=== PATIENT | male | born 1940 | race Caucasian/White ===

== ENCOUNTER 2021-01-31 21:36 | Inpatient (IN) | payer MEDICARE, MEDICAID, SELFPAY ==
--- NOTE | ~2021-01-31 | CT_ITS ---
EXAMINATION: CT brain wo con DATE: 01/31/2021 23:33 INDICATION: Confusion. Weakness fall. TECHNIQUE: Computed tomography (CT) of the head was performed without intravenous contrast. The dose- length product was 605.33 mGy-cm. Automated exposure control and iterative reconstruction technique w ere employed. 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 There are scattered mild periventricular and subcortical white matter changes, most likely related to small vessel ischemic disease (microang iopathy). There is generalized atrophy. No ventriculomegaly or midline shift. Basilar cisterns are pa tent. There is intracranial atherosclerosis. There is a small air-fluid level in the right maxillary sinus. Small left mastoid effusion. No depressed skull fractures. IMPRESSION: 1. No acute intracranial abnormality. 2: Mild right maxillary sinus disease, possibly acute. 3: Chronic right parietal lobe infarction. 4: Chronic age-related findings. Reviewed, dictated and finalized at location A.
[2021-01-31 21:54] VITALS: BP 117/77; PULSE 106; PULSE 109; RESP 21; RESP 25; O2SAT 96; O2SAT 98
[2021-01-31 21:55] VITALS: PULSE 109; RESP 30; O2SAT 97
[2021-01-31 22:00] VITALS: PULSE 106; RESP 32; O2SAT 96
[2021-01-31 22:01] VITALS: BP 108/69; PULSE 106; RESP 31; O2SAT 96
--- NOTE | 2021-01-31 22:13 | ECG_ITS ---
Measurements Intervals [place] Rate: 104 P: 33 AR: 208 QRS: -29 QRSD: 105 T: 32 QT: 342 QTc: 452 Interpretive Statements SINUS TACHYCARDIA ATRIAL AND VENTRICULAR PREMATURE COMPLEXES INCOMPLETE RIGHT BUNDLE BRANCH BLOCK DELAYED PRECORDIAL R/S TRANSITION INFERIOR INFARCT, AGE INDETERMINATE BORDERLINE ST-T WAVE ABNORMALITY- HIGH LATERAL LEADS BASELINE ARTIFACT- I, II, III, AVR, AVL, AVF, V1-V2 ABNORMAL ECG Electronically Signed On 02-01-2021 6:29:54 CDT by Kosta Caldera D.O.
[2021-01-31 22:16] VITALS: BP 123/66; PULSE 105; RESP 25; TEMP 36.1; O2SAT 96
[2021-01-31 23:11] LABS: Basophils Percent Auto 0.2 % (0.2-1.2); Eosinophils Percent Auto 0.1 % (0-4.4); Hematocrit 23.8 % (42.0-52.0); Immature Granulocyte Absolute 0.04 K/mm3 (0.00-0.031); Immature Granulocyte Percent A 0.4 % (0-0.5); Lymphocytes Absolute Auto 3.91 K/mm3 (0.9-3.2); Lymphocytes Percent Auto 36.7 % (18.3-44.2); Mean Corpuscular HGB Conc 25.6 g/dl (32-36); Mean Corpuscular Hemoglobin 16.8 pg (26-34); Mean Corpuscular Volume 65.6 fl (80-100); Mean Platelet Volume 8.7 fl (7.4-10.4); Monocytes Absolute Auto 0.4 K/mm3 (0.1-0.6); Monocytes Percent Auto 4.1 % (2.6-8.5); Neutrophils Absolute Auto 6.2 K/mm3 (1.3-6.7); Neutrophils Percent Auto 58.5 % (45.5-73.1); Platelet Count Result 314 k/mm3 (150-375); Red Blood Count 3.63 M/mm3 (4.6-6.20); Red Cell Distribution Width 20.5 % (11.5-14.5); White Blood Count 10.7 K/mm3 (4.5-10.0)
[2021-01-31 23:19] LABS: Alanine Aminotransferase 11 U/L (4-50); Albumin Level 3.8 g/dL (3.5-5.1); Alkaline Phosphatase 103 U/L (38-126); Anion Gap 10 mmol/L (8-16); Aspartate Amino Transferase 21 U/L (17-59); Bilirubin,Total 0.4 mg/dL (0.2-1.3); Blood Urea Nitrogen 21 mg/dL (9-20); Calcium 9.2 mg/dL (8.4-10.2); Carbon Dioxide 23 mmol/L (22-30); Chloride 102 mmol/L (98-107); Estimated CRCL calculation 59 ml/min; Estimated Glomerular Filt Rate > 60; Glucose 139 mg/dL (65-110); Potassium 4.1 mmol/L (3.4-5.0); Sodium 135 mmol/L (137-145)
[2021-01-31 23:20] LABS: Ethanol < 10 mg/dL (<10)
[2021-01-31 23:32] VITALS: BP 108/79; PULSE 98; RESP 30; O2SAT 97
[2021-01-31 23:44] LABS: Anisocytosis 1+ (NORMAL); Hemoglobin 6.1 g/dL (14.0-18.0); Hypochromasia 2+ (NORMAL); Platelet Estimate Adequate (Adequate)
[2021-01-31 23:53] LABS: NT Pro B Type Natriuretic Pept 1920 pg/mL (5-100); Troponin I 0.894 ng/mL (0.000-0.034)
[2021-02-01] VITALS (26 sets, daily range): BP systolic 104–149; BP diastolic 50–82; PULSE 65–102; RESP 14–26; TEMP 35.9–37; O2SAT 93–100; BMI 20.2
--- NOTE | 2021-02-01 | ECHO_ITS ---
Patient Info Name: Manpreet Crawley Age: 80 years : 1940 Gender: Male Ht: 68 in Wt: 133 lbs BSA: 1.70 m2 HR: 78 bpm BP: 131 / 66 mmHg Heart Rhythm: Sinus Rhythm Technical Quality: Good Exam Date: 02/01/2021 1:39 PM Exam Location: [facility] Patient Status: Inpatient Admit Date: 02/01/2021 Staff Ordering Physician: Mat Ruiz MD Knot Borer: Valerie Jacome RDCS Attending Provider: Mat Ruiz MD Exam Type: CA echo doppler color flow Study Info Indications - ELEVATED TROPONIN Complete two-dimensional, color flow and Doppler transthoracic echocardiogram is performed. Summary 1. Complete two-dimensional, color flow and Doppler transthoracic echocardiogram is performed. 2. Mild left ventricular enlargement with sigmoid hypertrophy. Mild left ventricular dysfunction with hyper basal inferior wall and basal and mid septal segments. Ejection fraction calculated to be 45%. Normal diastolic function. 3. Global longitudinal strain is moderately elevated at -13 %, consistent with a degree of systolic dysfunction. 4. Left atrial chamber dimension is moderately enlarged. 5. There is mild mitral valve regurgitation. 6. Normal sinus rhythm. Left Ventricle Left ventricular chamber dimension is mildly enlarged. Left ventricular systolic function is normal, estimated at 45-50%. There is no increased left ventricular wall thickness. Left ventricular septal wall motion is normal. The left ventricular diastolic function is normal. Global longitudinal strain is moderately elevated at -13 %, consistent with a degree of systolic dysfunction. Right Ventricle Right ventricular chamber dimension is normal. Right ventricular systolic function is normal. Left Atria Left atrial chamber dimension is moderately enlarged. Right Atria Right atrial chamber dimension is normal. Aortic Valve The aortic valve is trileaflet. There is no aortic valve sclerosis. There is no aortic valve stenosis. There is no aortic valve regurgitation. Pulmonic Valve The pulmonic valve is normal. There is no pulmonic valve stenosis. There is no pulmonic regurgitation. Mitral Valve The mitral valve has normal leaflets. There is no mitral valve stenosis. There is mild mitral valve regurgitation. Tricuspid Valve The tricuspid valve leaflets are normal. There is no significant tricuspid valve stenosis. There is trace tricuspid valve regurgitation. No pulmonary hypertension, estimated pulmonary arterial systolic pressure is 19 mmHg. Pericardium/Pleural The pericardium appears normal. There is no pericardial effusion. Inferior Vena Cava Not well visualized inferior vena cava with >50% collapse upon inspiration consistent with Empty right atrial pressure, 10 mmHg. Aorta The aortic root size at the sinus of Valsalva is normal. The prox ascending aorta size is not well visualized. Left Ventricular Outflow Tract Name Value Normal LVOT 2D LVOT Diameter 2.2 cm LVOT Doppler LVOT Peak Gradient 2 mmHg LVOT Mean Gradient 1 mmHg LVOT VTI
--- NOTE | 2021-02-01 00:27 | ED.FALL ---
HPI - Fall General Chief Complaint: Fall Stated Complaint: ams Time Seen by Provider: 01/31/21 22:09 Source: patient and EMS Mode of arrival: EMS Limitations: physical limitation History of Present Illness HPI Narrative: 80-year-old with a history of hypertension s/p CABG about 2 years ago was brought in from home with complaints of fall. Patient was found on the floor by EMS, he initially called [facility] and then EMS responded. Patient initially was found to be very confused ANO x2, covered in feces. Patient states that he fell off his recliner and was unable to get up and walk. He denies hitting his head or having any chest pain prior to the event. Patient states that he lives by himself and has not made who comes every other day. He also mentions that he eats very minimal as he has no appetite. He has no family members. complaint: fall Onset (ago): day(s) (1) Fall from: chair Fall witnessed: no Place fall occurred: home Loss of consciousness: none Related Data Allergies Allergy/AdvReac Type Severity Reaction Status Date / Time No Known Allergies Allergy Verified 01/31/21 22:01 Review of Systems Review of Systems: All systems reviewed & are unremarkable except as noted in HPI and below Constitutional: Constitutional: Reports no additional constitutional complaints Eyes: Eyes: Reports no additional eye complaints ENT: Reports system reviewed and no additional complaints, except as documented Cardiovascular: Cardiovascular: Reports no additional cardiovascular complaints Musculoskeletal: Musculoskeletal: Reports no additional musculoskeletal complaints Neurologic: Reports system reviewed and no additional complaints, except as documented Endocrine: Endocrine: Reports no additional endocrine complaints Hematologic/Lymphatic: Hematologic/Lymphatic: Reports no additional hematologic/lymphatic complaints Allergic/Immunologic: Allergic/Immunologic: Reports no additional allergic/immunologic complaints Exam Narrative: GENERAL: ill -appearing, thin, very hard of hearing and in no acute distress. HEAD: Normocephalic, atraumatic. EYES: PERRLA and EOMI. ENT: Nares clear, no rhinorrhea . Mucous membranes moist. NECK: Supple. CHEST: Clear to auscultation. No respiratory distress. Thoracotomy scar noted HEART: Regular rate and rhythm. No murmur heard. Normal peripheral pulses. ABDOMEN: Soft, nontender, nondistended, normal active bowel sounds. Guaiac negative EXTREMITIES: Normal range of motion. No edema. SKIN: Warm, dry, no rash. Pale NEURO: No focal deficits. Alert and oriented x3. PSYCH: Normal mood and affect. Course Course Emergency Course: Inform patient about his lab work. He agreed for admission and blood transfusion. Patient has no family members to notify he does not recall what medication he takes. He states that he has not seen his doctor for quite some time. I discussed with Dr. Milan agreed. The patient will consult dialysis social worker in the morning. Vital Signs Vital signs: Vital Signs Pulse Rate 106 H 01/31/21 21:54 Respiratory Rate 25 H 01/31/21 21:54 Blood Pressure 117/77 01/31/21 21:54 Pulse Oximetry 96 01/31/21 21:54 Pulse Rate 106 H 01/31/21 22:01 Respiratory Rate 31 H 01/31/21 22:01 Blood Pressure 108/69 01/31/21 22:01 Pulse Oximetry 96 01/31/21 22:01 - Fall Lab Data Result diagrams: 01/31/21 22:55 01/31/21 22:54 Labs: Lab Results 01/31/21 01/31/21 01/31/21 Range/Units 22:54 22:54 22:55 WBC 10.7 H (4.5-10.0) K/mm3 RBC 3.63 L (4.6-6.20) M/mm3 Hgb 6.1 L* (14.0-18.0) g/dL Hct 23.8 L (42.0-52.0) % MCV 65.6 L (80-100) fl MCH 16.8 L (26-34) pg MCHC 25.6 L (32-36) g/dl RDW 20.5 H (11.5-14.5) % Plt Count 314 (150-375) k/mm3 MPV 8.7 (7.4-10.4) fl Immature Gran % (Auto) 0.4 (0-0.5) % Neut % (Auto) 58.5 (45.5-73.1) % Lymph % (Auto) 36.7 (18.3-44.2)
[2021-02-01 01:25] LABS: Immature Reticulocyte Fraction 23.8 % (3.0-15.9); Reticulocyte Hemoglobin Conten 17.8 pg (28.2-35.7); Reticulocyte Percent 2.06 % (0.7-4.3); Reticulocytes Absolute 0.08 B/L (32.2-175.7)
[2021-02-01 01:31] LABS: Lactate Dehydrogenase 359 U/L (313-618)
--- NOTE | 2021-02-01 02:40 | PC.NURSE ---
Patient noted to be incontinent of stool. Patient cleaned and clean linen provided.
--- NOTE | 2021-02-01 02:50 | ADMGEN ---
This patient, Manpreet Crawley, was admitted to Medical Room 346-01. Patient/family oriented to hospital policies and general routines including ID bracelet, bed and alarms, visiting hours, pain management, procedures, bathroom and other care routines, personal items, smoking policy, room service/diet, and visiting hours. Information on how to activate the Rapid Response Team has been discussed. Patient/Family are encouraged to report perceived risks to care and to ask questions if they do not understand what they are told or what they should do.
--- NOTE | 2021-02-01 02:50 | PC.NURSE ---
Patient was noted to be incontinent of stool when moved to bed in room. Assisted floor nurse in cleaning patient and providing clean linen.
[2021-02-01 03:25] LABS: Iron 14 ug/dL (49-181)
[2021-02-01 03:29] LABS: Folic Acid 2.5 ng/mL (2.76->20); Vitamin B12 > 1000.0 pg/mL (239-931)
[2021-02-01 03:34] LABS: Percent Iron Saturation 3 % (20-50)
[2021-02-01] MEDS: SODIUM CHLORIDE 0.9% IV 250 ML 30 ML IV CONT ×2 (03:41→05:38)
[2021-02-01 04:02] LABS: Ferritin 8.04 ng/mL (11.1-264)
--- NOTE | 2021-02-01 05:21 | PM.IMHP ---
H&P: HPI History of Present Illness Date/Time: 02/01/21 05:21 Chief Complaint: fall Narrative: 80-year-old with a history of hypertension s/p CABG about 2 years ago was brought in from home with complaints of fall. Patient states she was walking with a walker however got imbalanced and fell on the ground and was unable to get up. He denies hitting his head or any other bony injury. He lives by himself. He called EMS who arrived in about 5-10 minutes and got him up. He was then brought to the ER for evaluation. In the ER he was noted to be severely anemic with hemoglobin down to 6.1 he denies any blood loss with normal bowel movement. No history of anemia in the past he does take aspirin 81 mg regularly for his history of coronary artery disease. He denies taking any other [id number] pain medications however patient is hard of hearing and also poor historian. He also reports that he has not been eating and drinking well and has been losing some weight. He is not able to quantify how much weight he lost. He is getting admitted for further evaluation and management.. Review of Systems Review of Systems: - CONSTITUTIONAL: Denies weight loss, fever and chills. - HEENT: Denies changes in vision and hearing - RESPIRATORY: Denies SOB and cough. - CV: Denies palpitations and CP. - GI: Denies abdominal pain, nausea, vomiting and diarrhea. - : Denies dysuria and urinary frequency. - MSK: Denies myalgia and joint pain. - SKIN: Denies rash and pruritus. - NEUROLOGICAL: Denies headache and syncope. - PSYCHIATRIC: Denies recent changes in mood. Denies anxiety and depression. All systems reviewed & are unremarkable except as noted in HPI and below Constitutional: Constitutional: Reports fatigue and Reports weakness Neurologic: Reports weakness Endocrine: Endocrine: Reports fatigue [facility] Family History Family History (Updated 02/01/21 @ 03:17 by Brooklynn Tucker RN) Sibling Congestive heart failure Sibling Congestive heart failure Social History Social History Smoking packs per day: 0.5 Smoking cigarettes per day: 10.0 Years smoked: 5 Smoking pack-years: 2.50 Smoking status: Former smoker Tobacco type: cigarettes Alcohol intake: never Substance use: never Substance use type: does not use Spiritual care concerns: No Meds Home Medications and Allergies Home Medications Medication Instructions Recorded Confirmed Type ipratropium-albuterol [Combivent 2 puff INHALATION QID 02/01/21 02/01/21 History Respimat] metoprolol succinate 50 mg PO DAILY 02/01/21 02/01/21 History tamsulosin 0.4 mg PO DAILY 02/01/21 02/01/21 History Allergies Allergy/AdvReac Type Severity Reaction Status Date / Time No Known Allergies Allergy Verified 02/01/21 03:04 Vital Signs Vital Signs - 24 hr 01/31/21 21:54 01/31/21 21:55 01/31/21 22:00 Temperature Pulse Rate 109 H 109 H 106 H Respiratory Rate 21 H 30 H 32 H Blood Pressure 117/77 Pulse Oximetry 98 97 96 01/31/21 22:01 01/31/21 22:16 01/31/21 23:32 Temperature 96.9 F L Pulse Rate 106 H 105 H 98 Respiratory Rate 31 H 25 H 30 H Blood Pressure 108/69 123/66 108/79 Pulse Oximetry 96 96 97 02/01/21 00:15 02/01/21 01:15 02/01/21 02:12 Temperature 97.1 F L 97.1 F L Pulse Rate 102 H 98 88 Respiratory Rate 26 H 24 H 24 H Blood Pressure 136/66 115/76 113/68 Pulse Oximetry 97 94 97 02/01/21 03:03 02/01/21 03:38 02/01/21 03:54 Temperature 98.2 F 98.4 F 98.5 F Pulse Rate 91 90 90 Respiratory Rate 22 H 24 H 24 H Blood Pressure 137/68 130/63 131/61 Pulse Oximetry 100 98 97 02/01/21 04:00 02/01/21 04:54 Temperature 98.2 F Pulse Rate 91 87 Respiratory Rate 20 Blood Pressure 112/50 L Pulse Oximetry 98 Exam Narrative: GENERAL: ill -appearing, thin, very hard of hearing and in no acute distress. HEAD: Normocephalic, atraumatic. EYES: PERR
[2021-02-01 08:15] LABS: Add Urine Microscopic? YES; Appearance Urine Clear (Clear); Bacteria Urine 3+ /hpf; Bilirubin Urine Negative (Negative); Blood Urine Negative (Negative); Color Urine Yellow (Yellow); Glucose Urine UA Negative (Negative); Ketones Urine Negative (Negative); Leukocyte Esterase Ur 1+ LEU/UL (Negative); Mucus Urine Rare /lpf; Nitrate Urine Positive (Negative); Protein Urine 1+ mg/dL (Negative); RBC Urine 0-2 /hpf (0-2); Specific Grav Ur 1.018 (1.001-1.035); WBC Urine 16-20 /hpf
[2021-02-01] MEDS: FOLIC ACID 1 MG TABLET PO (08:27)
[2021-02-01] MEDS: TAMSULOSIN HCL 0.4 MG CAPSULE PO (08:27)
[2021-02-01] MEDS: METOPROLOL SUCCINATE EXT REL 50 MG TABCR PO (08:27)
[2021-02-01] MEDS: PANTOPRAZOLE SODIUM IV 40 MG VIAL IV PUSH ×2 (08:28→20:58)
[2021-02-01] MEDS: FAMOTIDINE 20 MG/2 ML VIAL IV PUSH ×2 (08:28→20:58)
--- NOTE | 2021-02-01 09:46 | PM.CNCAR ---
Assessment and Plan Assessment and plan (1) Elevated troponin: Code(s): R77.8 - Other specified abnormalities of plasma proteins <THAO Mccollum - Last Filed: 02/01/21 17:26> Status: Acute <THAO Mccollum - Last Filed: 02/01/21 17:26> Assessment and Plan: Patient presented with a chief complaint of fall. Troponin levels were drawn in the emergency department for unclear reasons. The patient denied chest pain at that time and is continuing to deny chest pain now. EKG without any evidence of ischemia. He was found to be profoundly anemic with a hemoglobin of 6.1. His elevated troponins likely represent a type II [place] in the setting of profound anemia. He is being transfused -receiving his 2nd unit of packed red blood cells currently. No indication for ischemic evaluation at this time. Will check echo. <THAO Mccollum - Last Filed: 02/01/21 17:26> (2) Coronary artery disease: Code(s): I25.10 - Atherosclerotic heart disease of [place] coronary artery without angina pectoris <THAO Mccollum - Last Filed: 02/01/21 17:26> Status: Acute <THAO Mccollum - Last Filed: 02/01/21 17:26> Assessment and Plan: He does have history of coronary disease with coronary bypass grafting which by patient report was somewhere from 5-8 years ago. He denies having any anginal symptoms since that time. He apparent aspirin or statin at home. Would not recommend aspirin at this time in the setting of profound anemia with unknown source. <THAO Mccollum - Last Filed: 02/01/21 17:26> (3) Hypertension: Code(s): I10 - Essential (primary) hypertension <THAO Mccollum - Last Filed: 02/01/21 17:26> Status: Acute <THAO Mccollum - Last Filed: 02/01/21 17:26> Assessment and Plan: History of hypertension. On metoprolol at home. Blood pressure is at goal currently. <THAO Mccollum - Last Filed: 02/01/21 17:26> Additional Plan Patient seen and examined, chart reviewed. Pt w/ h/o CAD, with elevated troponins but no chest pain. EKG shows sinus tachycardia, PVCs, left axis deviation, incomplete RBBB but no ischemic changes. Severely anemic. I agree with nurse practitioner Ni Ulrich's assessment and plan; that the patient has had a troponin spill and this does not represent an acute coronary syndrome. Echo pending, resume ASA when OK w/ GI. <Sharri North MD - Last Filed: 02/01/21 20:06> History of Present Illness History of Present Illness Consult date/time: 02/01/21 09:46 <THAO Mccollum - Last Filed: 02/01/21 17:26> Requesting physician: Mario Ordaz APN-C <THAO Mccollum - Last Filed: 02/01/21 17:26> Consult reason: Other ( Elevated troponin) <THAO Mccollum - Last Filed: 02/01/21 17:26> Reason For Visit: Weakness, fall, anemia <THAO Mccollum - Last Filed: 02/01/21 17:26> Narrative: This is a 80-year-old male who I am seeing at the request of the hospitalist for the reason of elevated troponin. This is a patient with a history of hypertension and coronary disease status post CABG who presented to the emergency department after sustaining a fall. The patient tells me that he has been falling frequently over the past several months. He also says that he has had increasing shortness of breath for 2-3 months. He tells me that his coronary artery bypass grafting was somewhere between 5-8 years ago. He says that since that time he has not experienced any chest pain whatsoever. He currently is denying any chest pain. He does again endorse shortness of breath. He denies any edema, paroxysmal nocturnal dyspnea, orthopnea. In the emergency department he was found to be profoundly anemic with a hemoglobin of 6.1. He is currently only receiving 2 units of packed red blood cells. History somewhat difficult to obtain as he is very
--- NOTE | 2021-02-01 10:51 | PCPTNOTE ---
Attempted PT evaluation, however pt's RN stated to hold until this afternoon after labs are redrawn due to pt having low hgb. Will attempt again at a later date/time.
--- NOTE | 2021-02-01 11:28 | WPDGICN ---
Assessment and Plan Assessment and plan (1) Iron deficiency anemia: Code(s): D50.9 - Iron deficiency anemia, unspecified Status: Acute Assessment and Plan: no overt gib but no records of scopes will proceed with egd and colonoscopy to assess if gi blood loss, probably contributing factor of elevated troponin (no chest pain and cardiology on board) (2) Fall: Qualifiers: Encounter type: initial encounter Qualified Code(s): W19.XXXA - Unspecified fall, initial encounter Code(s): W19.XXXA - Unspecified fall, initial encounter Status: Acute Assessment and Plan: symptomatic anemia probably played a role fall precautions he is feeling better after blood transfusion (3) Coronary artery disease: Code(s): I25.10 - Atherosclerotic heart disease of [place] coronary artery without angina pectoris Status: Acute (4) Elevated troponin: Code(s): R77.8 - Other specified abnormalities of plasma proteins Status: Acute Assessment and Plan: by cardiology (5) Hypertension: Code(s): I10 - Essential (primary) hypertension Status: Acute GI Consult Note Consult date/time: 02/01/21 11:28 Reason for consult: PIOTR HPI: Manpreet Crawley is a 80 year old male with history of hypertension, CAD s/p CABG about 2 years on aspirin who is hard of hearing and also a poor historian. He was brought here after had a fall at home, apparently was unsteady using his walker and fell down. He lives by himself and called EMS. ER evaluation showed severely anemic with hemoglobin 6.1 with microcytosis but denies melena or obvious blood in stools. He does not remember having scopes in the past. CT head reviewed, chronic right parietal lobe infarction. Also had elevated troponin and cardiology on board and probably is related to profound anemia. He already received blood transfusion Review of Systems Constitutional: Constitutional: Reports weakness Eyes: Eyes: Denies blurry vision ENT: Comments: hard of hearing using aids Cardiovascular: Cardiovascular: Denies chest pain Respiratory: Respiratory: Denies cough Gastrointestinal: Gastrointestinal: Denies melena and Denies hematochezia Genitourinary: Genitourinary: Denies dysuria Musculoskeletal: Musculoskeletal: Reports no additional musculoskeletal complaints Integumentary/Breasts: Skin/Breast: Denies dry skin Neurologic: Reports system reviewed and no additional complaints, except as documented Psychiatric: Psychiatric: Reports no additional psychiatric complaints [facility] Past Medical History Medical History (Updated 02/01/21 @ 11:34 by Ankit Garcia MD) Iron deficiency anemia Family History Family History Sibling Congestive heart failure Sibling Congestive heart failure Social History Social History Smoking packs per day: 0.5 Smoking cigarettes per day: 10.0 Years smoked: 5 Smoking pack-years: 2.50 Smoking status: Former smoker Tobacco type: cigarettes Alcohol intake: never Substance use: never Substance use type: does not use Spiritual care concerns: No Meds Home Medications and Allergies Home Medications Medication Instructions Recorded Confirmed Type ipratropium-albuterol [Combivent 2 puff INHALATION QID 02/01/21 02/01/21 History Respimat] metoprolol succinate 50 mg PO DAILY 02/01/21 02/01/21 History tamsulosin 0.4 mg PO DAILY 02/01/21 02/01/21 History Allergies Allergy/AdvReac Type Severity Reaction Status Date / Time No Known Allergies Allergy Verified 02/01/21 03:04 Vital Signs Vital Signs - 24 hr 01/31/21 21:54 01/31/21 21:55 01/31/21 22:00 Temperature Pulse Rate 109 H 109 H 106 H Respiratory Rate 21 H 30 H 32 H Blood Pressure 117/77 Pulse Oximetry 98 97 96 01/31/21 22:01 01/31/21 22:16 01/31/21 23:32 [place]
[2021-02-01 13:23] LABS: IFOB Positive Control Positive; Immunochemical Fecal Occult Bl Negative (N)
--- NOTE | 2021-02-01 14:17 | P.PNIM_ITS ---
Progress Note: A&P Assessment and Plan (1) Fall: Qualifiers: Encounter type: initial encounter Qualified Code(s): W19.XXXA - Unspecified fall, initial encounter Code(s): W19.XXXA - Unspecified fall, initial encounter Status: Acute Assessment and Plan: * mechanical fall * uses walker at home all the time * will get PT OT. * Probably from the anemia (2) Anemia: Qualifiers: Anemia type: iron deficiency Iron deficiency anemia type: inadequate dietary iron intake Qualified Code(s): D50.8 - Other iron deficiency anemias Code(s): D64.9 - Anemia, unspecified Status: Acute Assessment and Plan: * Severe anemia hemoglobin of 6.1 on arrival * unknown baseline. * Reticulocyte count low at 0.08 suggestive of hypoproliferative bone marrow * ferritin low 8.04 * Iron 14 * suggestive of iron deficiency. * Transfuse 2 units of PRBC * Trend H&H * Ferrous sulfate 325 b.i.d. folic acid 1 mg p.o. daily * stool occult blood done in the ER was negative, recheck (3) Iron deficiency: Code(s): E61.1 - Iron deficiency Status: Acute Assessment and Plan: * Anemia labs performed and suggest iron deficiency anemia * Iron and folic acid added to regimen (4) Coronary artery disease: Code(s): I25.10 - Atherosclerotic heart disease of [place] coronary artery without angina pectoris Status: Acute Assessment and Plan: * Continue metoprolol 50 mg p.o. daily * Consider adding aspirin with bleeding resolved (5) History of coronary artery bypass graft: Code(s): Z95.1 - Presence of aortocoronary bypass graft Status: Acute Assessment and Plan: * See above (6) BPH (benign prostatic hyperplasia): Code(s): N40.0 - Benign prostatic hyperplasia without lower urinary tract symptoms Status: Acute Assessment and Plan: * Continue tamsulosin 0.4 mg p.o. daily * Strict I&O (7) Hypertension: Code(s): I10 - Essential (primary) hypertension Status: Acute Assessment and Plan: * Blood pressure looks little soft 104/50 * Blood pressure labile probably from anemia * Trend blood pressure * Adjust medications as needed (8) Elevated troponin: Code(s): R77.8 - Other specified abnormalities of plasma proteins Status: Acute Assessment and Plan: * Troponins elevated * 1st 10.894 followed by 1.290 followed by 1.590 * Probably related to anemia which indicated type 2 [place] * Cardiology consult you for your recommendations * monitoring engineer * Electrolyte management Time Spent With Patient Time with patient: 25 - 35 minutes Subjective Date/time seen: 02/01/21 11:00 Interval history: Patient is 80-year-old male who is here for fall. In the ED w as noted that his hemoglobin was to 6.1. Patient did receive 2 units of packed red blood cells. Patient states that he is tired and weak. He also stated that this started about 4-5 weeks ago. When he has been short of breath. He denies chest pain. He also states that he could walk for the past 2-3 weeks as well and normally walks with a walker. Labs show low iron and folate. GI has been consulted and patient will be going for a colonoscopy and EGD tomorrow. Review of Systems Review of Systems: All systems reviewed & are unremarkable except as noted in HPI and below Exam Const:
--- NOTE | 2021-02-01 14:17 | PM.IMPN ---
Progress Note: A&P Assessment and Plan (1) Fall: Qualifiers: Encounter type: initial encounter Qualified Code(s): W19.XXXA - Unspecified fall, initial encounter Code(s): W19.XXXA - Unspecified fall, initial encounter Status: Acute Assessment and Plan: mechanical fall uses walker at home all the time will get PT OT. Probably from the anemia (2) Anemia: Qualifiers: Anemia type: iron deficiency Iron deficiency anemia type: inadequate dietary iron intake Qualified Code(s): D50.8 - Other iron deficiency anemias Code(s): D64.9 - Anemia, unspecified Status: Acute Assessment and Plan: Severe anemia hemoglobin of 6.1 on arrival unknown baseline. Reticulocyte count low at 0.08 suggestive of hypoproliferative bone marrow ferritin low 8.04 Iron 14 suggestive of iron deficiency. Transfuse 2 units of PRBC Trend H&H Ferrous sulfate 325 b.i.d. folic acid 1 mg p.o. daily stool occult blood done in the ER was negative, recheck (3) Iron deficiency: Code(s): E61.1 - Iron deficiency Status: Acute Assessment and Plan: Anemia labs performed and suggest iron deficiency anemia Iron and folic acid added to regimen (4) Coronary artery disease: Code(s): I25.10 - Atherosclerotic heart disease of [place] coronary artery without angina pectoris Status: Acute Assessment and Plan: Continue metoprolol 50 mg p.o. 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 daily Strict I&O (7) Hypertension: Code(s): I10 - Essential (primary) hypertension Status: Acute Assessment and Plan: Blood pressure looks little soft 104/50 Blood pressure labile probably from anemia Trend blood pressure Adjust medications as needed (8) Elevated troponin: Code(s): R77.8 - Other specified abnormalities of plasma proteins Status: Acute Assessment and Plan: Troponins elevated 1st 10.894 followed by 1.290 followed by 1.590 Probably related to anemia which indicated type 2 [place] Cardiology consult you for your recommendations athletic monitor Electrolyte management Time Spent With Patient Time with patient: 25 - 35 minutes Subjective Date/time seen: 02/01/21 11:00 Interval history: Patient is 80-year-old male who is here for fall. In the ED was noted that his hemoglobin was to 6.1. Patient did receive 2 units of packed red blood cells. Patient states that he is tired and weak. He also stated that this started about 4-5 weeks ago. When he has been short of breath. He denies chest pain. He also states that he could walk for the past 2-3 weeks as well and normally walks with a walker. Labs show low iron and folate. GI has been consulted and patient will be going for a colonoscopy and EGD tomorrow. Review of Systems Review of Systems: All systems reviewed & are unremarkable except as noted in HPI and below Exam Const: General: cooperative, comfortable, no acute distress, well developed, alert, awake, ill appearing and tired appearing Nutritional Appearance: average body habitus and well nourished Orientation/consciousness: oriented to person, oriented to place, oriented to time and patient oriented x3 Limitations: no limitations HENMT: Head: normal to inspection Ears: hearing grossly normal bilaterally General nose exam: Normal external nose present Mouth: Yes Normal oral and palatal mucosa present, Yes lip normal and Yes tongue normal Teeth and gingiva: abno
[2021-02-01 15:56] LABS: Hematocrit 28.9 % (42.0-52.0)
[2021-02-01] MEDS: FERROUS SULFATE 324 MG TABLET PO (17:42)
[2021-02-01] MEDS: BISACODYL 5 MG TABLET EC 20 MG PO (18:28)
[2021-02-01] MEDS: polyethylene glycoL 3350 238 GM BOTTLE PO (20:58)
[2021-02-02] VITALS (13 sets, daily range): BP systolic 110–154; BP diastolic 45–98; PULSE 65–95; RESP 16–32; TEMP 35.9–36.6; O2SAT 95–99
[2021-02-02] MEDS: MAGNESIUM CITRATE 300 ML BTL PO (03:06)
--- NOTE | 2021-02-02 03:28 | PC.NURSE ---
Patient consumed 30oz of mixed miralax. Several attempts were made to get patient to finish off mag citrate. patient refused on all occasions. States 'I'm calling someone. I'm leaving. Because I'm not about to do that.
[2021-02-02 06:10] LABS: Basophils Percent Auto 0.4 % (0.2-1.2); Eosinophils Absolute Auto 0.2 K/mm3 (0-0.3); Eosinophils Percent Auto 1.9 % (0-4.4); Hematocrit 31.1 % (42.0-52.0); Hemoglobin 8.3 g/dL (14.0-18.0); Immature Granulocyte Absolute 0.02 K/mm3 (0.00-0.031); Immature Granulocyte Percent A 0.2 % (0-0.5); Lymphocytes Absolute Auto 4.76 K/mm3 (0.9-3.2); Lymphocytes Percent Auto 49.8 % (18.3-44.2); Mean Corpuscular HGB Conc 26.7 g/dl (32-36); Mean Corpuscular Hemoglobin 19.4 pg (26-34); Mean Corpuscular Volume 72.8 fl (80-100); Mean Platelet Volume 8.7 fl (7.4-10.4); Monocytes Absolute Auto 0.6 K/mm3 (0.1-0.6); Neutrophils Percent Auto 41.7 % (45.5-73.1); Platelet Count Result 253 k/mm3 (150-375); Red Blood Count 4.27 M/mm3 (4.6-6.20); Red Cell Distribution Width 23.6 % (11.5-14.5); White Blood Count 9.6 K/mm3 (4.5-10.0)
[2021-02-02 06:28] LABS: Anion Gap 10 mmol/L (8-16); Blood Urea Nitrogen 13 mg/dL (9-20); Calcium 8.5 mg/dL (8.4-10.2); Carbon Dioxide 17 mmol/L (22-30); Chloride 103 mmol/L (98-107); Estimated CRCL calculation 63 ml/min; Estimated Glomerular Filt Rate > 60; Glucose 101 mg/dL (65-110); Potassium 3.6 mmol/L (3.4-5.0); Sodium 130 mmol/L (137-145)
[2021-02-02 07:43] LABS: Platelet Estimate Adequate (Adequate)
[2021-02-02 07:44] LABS: Acanthocytes 2+ (NORMAL); Ovalocytes 1+ (NORMAL); Schistocytes 1+ (NORMAL)
--- NOTE | 2021-02-02 08:08 | P.PNIM_ITS ---
Progress Note: A&P Assessment and Plan (1) Fall: Qualifiers: Encounter type: initial encounter Qualified Code(s): W19.XXXA - Unspecified fall, initial encounter Code(s): W19.XXXA - Unspecified fall, initial encounter Status: Acute Assessment and Plan: * mechanical fall * uses walker at home all the time * PT OT. * Probably from the anemia (2) Anemia: Qualifiers: Anemia type: iron deficiency Iron deficiency anemia type: inadequate dietary iron intake Qualified Code(s): D50.8 - Other iron deficiency anemias Code(s): D64.9 - Anemia, unspecified Status: Acute Assessment and Plan: * Severe anemia hemoglobin of 6.1 on arrival * unknown baseline. * Reticulocyte count low at 0.08 suggestive of hypoproliferative bone marrow * ferritin low 8.04 * Iron 14 * suggestive of iron deficiency. * Transfuse 2 units of PRBC * Trend H&H current 8.3/31.1 * Ferrous sulfate 325 b.i.d. folic acid 1 mg p.o. daily * stool occult blood done in the ER was negative, recheck (still needs to be collected) (3) Iron deficiency: Code(s): E61.1 - Iron deficiency Status: Acute Assessment and Plan: * Anemia labs performed and suggest iron deficiency anemia * Iron and folic acid added to regimen (4) Coronary artery disease: Code(s): I25.10 - Atherosclerotic heart disease of [place] coronary artery without angina pectoris Status: Acute Assessment and Plan: * Continue metoprolol 50 mg p.o. daily * Consider adding aspirin with bleeding resolved (5) History of coronary artery bypass graft: Code(s): Z95.1 - Presence of aortocoronary bypass graft Status: Acute Assessment and Plan: * See above (6) BPH (benign prostatic hyperplasia): Code(s): N40.0 - Benign prostatic hyperplasia without lower urinary tract symptoms Status: Acute Assessment and Plan: * Continue tamsulosin 0.4 mg p.o. daily * Strict I&O (7) Hypertension: Code(s): I10 - Essential (primary) hypertension Status: Acute Assessment and Plan: * Blood pressure better today 126/65 * Blood pressure labile probably from anemia * Trend blood pressure * Adjust medications as needed (8) Elevated troponin: Code(s): R77.8 - Other specified abnormalities of plasma proteins Status: Acute Assessment and Plan: * Troponins elevated * 1st 0.894 followed by 1.290 followed by 1.590 * Probably related to anemia which indicated type 2 [place] * Cardiology consult you for your recommendations * equipment monitor phototypesetting- * Echo EF of 45% with normal diastolic function * Electrolyte management (9) Hyponatremia: Code(s): E87.1 - Hypo-osmolality and hyponatremia Status: Acute Assessment and Plan: * NA 130 today * NPO for procedure today * NS if continues to decline * Could be from hypervolemia * Trend labs Subjective Date/time seen: 02/02/21 08:08 Interval history: Patient is 80-year-old male who is here for fall. In the ED was noted that his hemoglobin was to 6.1. Patient did receive 2 units of packed red blood cells. Patient states that he is tired and weak. He also stated that this started about 4-5 weeks ago. When he has been short of breath. He denies chest pain. He also states that he could walk for the past 2-3 weeks as well and normally w
--- NOTE | 2021-02-02 08:08 | PM.IMPN ---
Progress Note: A&P Assessment and Plan (1) Fall: Qualifiers: Encounter type: initial encounter Qualified Code(s): W19.XXXA - Unspecified fall, initial encounter Code(s): W19.XXXA - Unspecified fall, initial encounter Status: Acute Assessment and Plan: mechanical fall uses walker at home all the time PT OT. Probably from the anemia (2) Anemia: Qualifiers: Anemia type: iron deficiency Iron deficiency anemia type: inadequate dietary iron intake Qualified Code(s): D50.8 - Other iron deficiency anemias Code(s): D64.9 - Anemia, unspecified Status: Acute Assessment and Plan: Severe anemia hemoglobin of 6.1 on arrival unknown baseline. Reticulocyte count low at 0.08 suggestive of hypoproliferative bone marrow ferritin low 8.04 Iron 14 suggestive of iron deficiency. Transfuse 2 units of PRBC Trend H&H current 8.331.1 Ferrous sulfate 325 b.i.d. folic acid 1 mg p.o. daily stool occult blood done in the ER was negative, recheck (still needs to be collected) (3) Iron deficiency: Code(s): E61.1 - Iron deficiency Status: Acute Assessment and Plan: Anemia labs performed and suggest iron deficiency anemia Iron and folic acid added to regimen (4) Coronary artery disease: Code(s): I25.10 - Atherosclerotic heart disease of [place] coronary artery without angina pectoris Status: Acute Assessment and Plan: Continue metoprolol 50 mg p.o. 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 In the ED was noted that his hemoglobin was to 6.1. Patient did receive 2 units of packed red blood cells. Patient states that he is tired and weak. He also stated that this started about 4-5 weeks ago. When he has been short of breath. He denies chest pain. He also states that he could walk for the past 2-3 weeks as well and normally walks with a walker. Labs show low iron and folate. GI has been consulted and patient will be going for a colonoscopy and EGD tomorrow. Review of Systems Review of Systems: All systems reviewed & are unremarkable except as noted in HPI and below Exam Const: General: cooperative, comfortable, no acute distress, well developed, alert, awake, ill appearing and tired appearing Nutritional Appearance: average body habitus and well nourished Orientation/consciousness: oriented to person, oriented to place, oriented to time and patient oriented x3
[2021-02-02] MEDS: PANTOPRAZOLE SODIUM IV 40 MG VIAL IV PUSH (08:21)
[2021-02-02] MEDS: FERROUS SULFATE 324 MG TABLET PO ×2 (08:21→17:47)
[2021-02-02] MEDS: FAMOTIDINE 20 MG/2 ML VIAL IV PUSH (08:21)
[2021-02-02] MEDS: TAMSULOSIN HCL 0.4 MG CAPSULE PO (08:22)
[2021-02-02] MEDS: FOLIC ACID 1 MG TABLET PO (08:22)
[2021-02-02] MEDS: METOPROLOL SUCCINATE EXT REL 50 MG TABCR PO (08:22)
--- NOTE | 2021-02-02 10:52 | PCPTNOTE ---
Attempted to see patient for PT at this time, however patient refused. Encouraged patient to participate in therapy and patient stated leave me alone.
--- NOTE | 2021-02-02 11:37 | PC.NURSE ---
pt down in GI lab for EGD and colonoscopy
[2021-02-02] MEDS: LACTATED RINGERS 1,000 ML 150 ML IV CONT (11:40)
--- NOTE | 2021-02-02 11:48 | WPDANESEPPF ---
Anes - Initial Pre Proc Eval Procedure: Operation Date: 02/02/21 13:00 Proposed Procedures p Esophagogastroduodenoscopy & Colonoscopy - Ankit Garcia MD Date/Time: 02/02/21 11:48 Surgeon: Mat Ruiz MD Pre Op Diagnosis: Weakness, fall, anemia Patient Data Age: 80 Gender: M Height: 1.73 m Weight: 60.5 kg Last Vital Signs Temp 36.6 C 02/02/21 11:43 Pulse 72 02/02/21 11:43 Resp 20 02/02/21 11:43 BP 111/51 L 02/02/21 11:43 Pulse Ox 98 02/02/21 11:43 Allergies Allergy/AdvReac Type Severity Reaction Status Date / Time No Known Allergies Allergy Verified 02/02/21 11:38 Home Medications Medication Instructions Recorded Confirmed Type ipratropium-albuterol [Combivent 2 puff INHALATION QID 02/01/21 02/01/21 History Respimat] metoprolol succinate 50 mg PO DAILY 02/01/21 02/01/21 History tamsulosin 0.4 mg PO DAILY 02/01/21 02/01/21 History Laboratory Tests 02/01/21 02/01/21 02/01/21 01:08 08:11 15:19 WBC RBC Hgb 8.0 g/dL L g/dL (14.0-18.0) Hct 28.9 % L % (42.0-52.0) MCV MCH MCHC RDW Plt Count MPV Immature Gran % (Auto) Neut % (Auto) Lymph % (Auto) [place] % (Auto) Eos % (Auto) Baso % (Auto) Lymph # (Auto) [place] # (Auto) Eos # (Auto) Baso # (Auto) Abs Immat Gran (auto) Absolute Neuts (auto) Absolute Nucleated RBC Nucleated RBC % Platelet Estimate Ovalocytes Acanthocytes (Sp[place]) Schistocytes Sodium Potassium Chloride Carbon Dioxide Anion Gap BUN Creatinine Estim Creat Clear Calc Estimated GFR Glucose Calcium Stl Occult Blood (IFOB) Negative (N) Crossmatch See Detail 02/02/21 02/02/21 05:42 05:42 WBC 9.6 K/mm3 K/mm3 (4.5-10.0) RBC 4.27 M/mm3 L M/mm3 (4.6-6.20) Hgb 8.3 g/dL L g/dL (14.0-18.0) Hct 31.1 % L % (42.0-52.0) MCV 72.8 fl L D fl (80-100) MCH 19.4 pg L D pg (26-34) MCHC 26.7 g/dl L g/dl (32-36) RDW 23.6 % H % (11.5-14.5) Plt Count 253 k/mm3 k/mm3 (150-375) MPV 8.7 fl fl (7.4-10.4) Immature Gran % (Auto) 0.2 % % (0-0.5) Neut % (Auto) 41.7 % L % (45.5-73.1) Lymph % (Auto) 49.8 % H % (18.3-44.2) [place] % (Auto) 6.0 % % (2.6-8.5) Eos % (Auto) 1.9 % % (0-4.4) Baso % (Auto) 0.4 % % (0.2-1.2) Lymph # (Auto) 4.76 K/mm3 H K/mm3 (0.9-3.2) [place] # (Auto) 0.6 K/mm3 K/mm3 (0.1-0.6) Eos # (Auto) 0.2 K/mm3 K/mm3 (0-0.3) Baso # (Auto) 0.0 K/mm3 K/mm3 (0.0-0.1) Abs Immat Gran (auto) 0.02 K/mm3 K/mm3 (0.00-0.031) Absolute Neuts (auto) 4.0 K/mm3 K/mm3 (1.3-6.7) Absolute Nucleated RBC 0.0 K/mm3 K/mm3 (0.0-0.012) Nucleated RBC % 0.0 % % (0.0-0.2) Platelet Estimate Adequate (Adequate) Ovalocytes 1+ (NORMAL) Acanthocytes ([place]) 2+ (NORMAL) Schistocytes 1+ (NORMAL) Sodium 130 mmol/L L mmol/L (137-145) Potassium 3.6 mmol/L mmol/L (3.4-5.0) Chloride 103 mmol/L mmol/L (98-107) Carbon Dioxide 17 mmol/L L mmol/L (22-30) Anion Gap 10 mmol/L mmol/L (8-16) BUN 13 mg/dL D mg/dL (9-20) Creatinine 0.70 mg/dL mg/dL (0.7-1.3) Estim Creat Clear Calc 63 ml/min ml/min Estimated GFR > 60 (59 - ) Glucose 101 mg/dL mg/dL (65-110) Calcium 8.5 mg/dL mg/dL (8.4-10.2) Stl Occult Blood (IFOB) Crossmatch Patient hx anesthesia problems:
--- NOTE | 2021-02-02 14:06 | PC.NURSE ---
pt back from GI lab
--- NOTE | 2021-02-02 15:35 | P.PNIM_ITS ---
Progress Note: A&P Assessment and Plan (1) Fall: Qualifiers: Encounter type: initial encounter Qualified Code(s): W19.XXXA - Unspecified fall, initial encounter Code(s): W19.XXXA - Unspecified fall, initial encounter Status: Acute Assessment and Plan: * mechanical fall * uses walker at home all the time * PT OT. * Probably from the anemia (2) Anemia: Qualifiers: Anemia type: iron deficiency [place] deficiency anemia type: inadequate dietary iron intake Qualified Code(s): D50.8 - Other iron deficiency anemias Code(s): D64.9 - Anemia, unspecified Status: Acute Assessment and Plan: * Severe anemia hemoglobin of 6.1 on arrival * unknown baseline. * Reticulocyte count low at 0.08 suggestive of hypoproliferative bone marrow * ferritin low 8.04 * Iron 14 * suggestive of iron deficiency. * Transfuse 2 units of PRBC * Trend H&H current 8.3/31.1 * Ferrous sulfate 325 b.i.d. folic acid 1 mg p.o. daily * stool occult blood done in the ER was negative, recheck (still needs to be collected) (3) Iron deficiency: Code(s): E61.1 - Iron deficiency Status: Acute Assessment and Plan: * Anemia labs performed and suggest iron deficiency anemia * Iron and folic acid added to regimen (4) Coronary artery disease: Code(s): I25.10 - Atherosclerotic heart disease of [place] coronary artery without angina pectoris Status: Acute Assessment and Plan: * Continue metoprolol 50 mg p.o. daily * Consider adding aspirin with bleeding resolved (5) History of coronary artery bypass graft: Code(s): Z95.1 - Presence of aortocoronary bypass graft Status: Acute Assessment and Plan: * See above (6) BPH (benign prostatic hyperplasia): Code(s): N40.0 - Benign prostatic hyperplasia without lower urinary tract symptoms Status: Acute Assessment and Plan: * Continue tamsulosin 0.4 mg p.o. daily * Strict I&O (7) Hypertension: Code(s): I10 - Essential (primary) hypertension Status: Acute Assessment and Plan: * Blood pressure better today 126/65 * Blood pressure labile probably from anemia * Trend blood pressure * Adjust medications as needed (8) Elevated troponin: Code(s): R77.8 - Other specified abnormalities of plasma proteins Status: Acute Assessment and Plan: * Troponins elevated * 1st 0.894 followed by 1.290 followed by 1.590 * Probably related to anemia which indicated type 2 [place] * Cardiology consult you for your recommendations * financial writer- * Echo EF of 45% with normal diastolic function * Electrolyte management (9) Hyponatremia: Code(s): E87.1 - Hypo-osmolality and hyponatremia Status: Acute Assessment and Plan: * NA 130 today * NPO for procedure today * NS if continues to decline * Could be from hypervolemia * Trend labs (10) UTI (urinary tract infection): Code(s): N39.0 - Urinary tract infection, site not specified Status: Acute Assessment and Plan: * Urine culture positive for Ecoli * Will start on ceftriaxone * wait for susceptibilities * Nallely antibiotics to sensitives Subjective Date/time seen: 02/02/21 15:15 Interval history: patient is a 80-year-old male that is here for A
--- NOTE | 2021-02-02 15:35 | PM.IMPN ---
Progress Note: A&P Assessment and Plan (1) Fall: Qualifiers: Encounter type: initial encounter Qualified Code(s): W19.XXXA - Unspecified fall, initial encounter Code(s): W19.XXXA - Unspecified fall, initial encounter Status: Acute Assessment and Plan: mechanical fall uses walker at home all the time PT OT. Probably from the anemia (2) Anemia: Qualifiers: Anemia type: iron deficiency [place] deficiency anemia type: inadequate dietary iron intake Qualified Code(s): D50.8 - Other iron deficiency anemias Code(s): D64.9 - Anemia, unspecified Status: Acute Assessment and Plan: Severe anemia hemoglobin of 6.1 on arrival unknown baseline. Reticulocyte count low at 0.08 suggestive of hypoproliferative bone marrow ferritin low 8.04 Iron 14 suggestive of iron deficiency. Transfuse 2 units of PRBC Trend H&H current 8.331.1 Ferrous sulfate 325 b.i.d. folic acid 1 mg p.o. daily stool occult blood done in the ER was negative, recheck (still needs to be collected) (3) Iron deficiency: Code(s): E61.1 - Iron deficiency Status: Acute Assessment and Plan: Anemia labs performed and suggest iron deficiency anemia Iron and folic acid added to regimen (4) Coronary artery disease: Code(s): I25.10 - Atherosclerotic heart disease of [place] coronary artery without angina pectoris Status: Acute Assessment and Plan: Continue metoprolol 50 mg p.o. 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 daily Strict I&O (7) Hypertension: Code(s): I10 - Essential (primary) hypertension Status: Acute Assessment and Plan: Blood pressure better today 126/65 Blood pressure labile probably from anemia Trend blood pressure Adjust medications as needed (8) Elevated troponin: Code(s): R77.8 - Other specified abnormalities of plasma proteins Status: Acute Assessment and Plan: Troponins elevated 1st 0.894 followed by 1.290 followed by 1.590 Probably related to anemia which indicated type 2 [place] Cardiology consult you for your recommendations repair miller- Echo EF of 45% with normal diastolic function Electrolyte management (9) Hyponatremia: Code(s): E87.1 - Hypo-osmolality and hyponatremia Status: Acute Assessment and Plan: NA 130 today NPO for procedure today NS if continues to decline Could be from hypervolemia Trend labs (10) UTI (urinary tract infection): Code(s): N39.0 - Urinary tract infection, site not specified Status: Acute Assessment and Plan: Urine culture positive for Ecoli Will start on ceftriaxone wait for susceptibilities Nallely antibiotics to sensitives Subjective Date/time seen: 02/02/21 15:15 Interval history: patient is a 80-year-old male that is here for A fall and found to have anemia. Today patient went for an EGD and colonoscopy which they found a polyp. Patient stated that he is okay he has no pain at this time. He did state he was hungry and had a bowel movement since he denies having blood in his stool. H&H is stable at 8.3 and 21.1 will check it again tomorrow. At this time patient has no complaints. Review of Systems Review of Systems: All systems reviewed & are unremarkable except as noted in HPI and below Exam Const: General: cooperative, comfortable, no acute distress, well developed, alert, awake, ill appearing and tired appeari
[2021-02-03] VITALS (10 sets, daily range): BP systolic 120–127; BP diastolic 50–71; PULSE 64–92; RESP 14–24; TEMP 36.1–36.3; O2SAT 96–97
[2021-02-03 05:50] LABS: Basophils Percent Auto 0.3 % (0.2-1.2); Eosinophils Absolute Auto 0.1 K/mm3 (0-0.3); Eosinophils Percent Auto 1.3 % (0-4.4); Hematocrit 27.9 % (42.0-52.0); Hemoglobin 7.7 g/dL (14.0-18.0); Immature Granulocyte Absolute 0.04 K/mm3 (0.00-0.031); Immature Granulocyte Percent A 0.5 % (0-0.5); Lymphocytes Absolute Auto 3.81 K/mm3 (0.9-3.2); Lymphocytes Percent Auto 50.7 % (18.3-44.2); Mean Corpuscular HGB Conc 27.6 g/dl (32-36); Mean Corpuscular Hemoglobin 19.4 pg (26-34); Mean Corpuscular Volume 70.5 fl (80-100); Mean Platelet Volume 8.7 fl (7.4-10.4); Monocytes Absolute Auto 0.4 K/mm3 (0.1-0.6); Monocytes Percent Auto 5.3 % (2.6-8.5); Neutrophils Absolute Auto 3.1 K/mm3 (1.3-6.7); Neutrophils Percent Auto 41.9 % (45.5-73.1); Platelet Count Result 243 k/mm3 (150-375); Red Blood Count 3.96 M/mm3 (4.6-6.20); Red Cell Distribution Width 23.9 % (11.5-14.5); White Blood Count 7.5 K/mm3 (4.5-10.0)
[2021-02-03 06:17] LABS: Alanine Aminotransferase 8 U/L (4-50); Albumin Level 3.1 g/dL (3.5-5.1); Alkaline Phosphatase 95 U/L (38-126); Anion Gap 8 mmol/L (8-16); Aspartate Amino Transferase 16 U/L (17-59); Bilirubin,Total 0.5 mg/dL (0.2-1.3); Blood Urea Nitrogen 15 mg/dL (9-20); Calcium 8.2 mg/dL (8.4-10.2); Carbon Dioxide 23 mmol/L (22-30); Chloride 102 mmol/L (98-107); Estimated CRCL calculation 56 ml/min; Estimated Glomerular Filt Rate > 60; Glucose 105 mg/dL (65-110); Magnesium 2.4 mg/dL (1.6-2.3); Potassium 4.1 mmol/L (3.4-5.0); Sodium 133 mmol/L (137-145)
[2021-02-03 06:25] LABS: Platelet Estimate Adequate (Adequate)
[2021-02-03 06:26] LABS: Hypochromasia 2+ (NORMAL); Ovalocytes 2+ (NORMAL); Polychromasia 1+ (NORMAL); Tear Drop Cells 2+ (NORMAL)
[2021-02-03] MEDS: FOLIC ACID 1 MG TABLET PO (09:07)
[2021-02-03] MEDS: PANTOPRAZOLE 40 MG TABLET PO (09:07)
[2021-02-03] MEDS: METOPROLOL SUCCINATE EXT REL 50 MG TABCR PO (09:07)
[2021-02-03] MEDS: TAMSULOSIN HCL 0.4 MG CAPSULE PO (09:07)
[2021-02-03] MEDS: FERROUS SULFATE 324 MG TABLET PO ×2 (09:07→17:03)
--- NOTE | 2021-02-03 11:17 | PCOTNOTE ---
Attempted to see Pt for therapy this AM, however, pt refused stating Why do you have to bother me...it don't do be no good. Pt was educated and encouraged to participate, however, pt just closed his eyes and went back to sleep. RN was made aware of pt's refusal in therapy. Will continue per poc duration/frequency.
--- NOTE | 2021-02-03 13:08 | WPDANESPN ---
Anes - Prog Note Post-Op Date/Time: 02/03/21 13:08 Cardiovascular status: normal Respiratory status: normal Airway patency: baseline Mental status: baseline Post-Op hydration status: normal Vital Signs: Last Vital Signs Temp 36.3 C L 02/03/21 06:02 Pulse 91 02/03/21 12:00 Resp 14 02/03/21 06:02 BP 127/71 02/03/21 06:02 Pulse Ox 96 02/03/21 06:02 Pain Score (VAS): 0 I/O: Intake & Output 02/02/21 02/03/21 02/03/21 23:59 07:59 15:59 Intake Total 480 350 770 Balance 480 350 770 Laboratory Tests 02/03/21 05:27 02/03/21 05:27 02/01/21 02/03/21 02/03/21 01:08 05:27 05:27 WBC 7.5 RBC 3.96 L Hgb 7.7 L Hct 27.9 L MCV 70.5 L MCH 19.4 L MCHC 27.6 L RDW 23.9 H Plt Count 243 MPV 8.7 Immature Gran % (Auto) 0.5 Neut % (Auto) 41.9 L Lymph % (Auto) 50.7 H [place] % (Auto) 5.3 Eos % (Auto) 1.3 Baso % (Auto) 0.3 Lymph # (Auto) 3.81 H [place] # (Auto) 0.4 Eos # (Auto) 0.1 Baso # (Auto) 0.0 Abs Immat Gran (auto) 0.04 H Absolute Neuts (auto) 3.1 Absolute Nucleated RBC 0.0 Nucleated RBC % 0.0 Platelet Estimate Adequate Polychromasia 1+ Hypochromasia 2+ Tear Drop Cells 2+ Ovalocytes 2+ Sodium 133 L Potassium 4.1 Chloride 102 Carbon Dioxide 23 Anion Gap 8 BUN 15 Creatinine 0.80 Estim Creat Clear Calc 56 Estimated GFR > 60 Glucose 105 Calcium 8.2 L Magnesium 2.4 H Total Bilirubin 0.5 AST 16 L ALT 8 Alkaline Phosphatase 95 Total Protein 6.0 L Albumin 3.1 L Crossmatch See Detail Microbiology 02/01/21 07:37 Urine Clean Catch Urine Culture - Final Escherichia Coli Post-procedural complaints: none Patient Feedback: Patient satisfied with anesthetic care.
--- NOTE | 2021-02-03 15:35 | P.PNIM_ITS ---
Progress Note: A&P Assessment and Plan (1) Fall: Qualifiers: Encounter type: initial encounter Qualified Code(s): W19.XXXA - Unspecified fall, initial encounter Code(s): W19.XXXA - Unspecified fall, initial encounter Status: Acute Assessment and Plan: * mechanical fall * uses walker at home all the time * PT OT. * Probably from the anemia * will need rehab placement (2) Anemia: Qualifiers: Anemia type: iron deficiency Iron deficiency anemia type: inadequate dietary iron intake Qualified Code(s): D50.8 - Other iron deficiency anemias Code(s): D64.9 - Anemia, unspecified Status: Acute Assessment and Plan: * Severe anemia hemoglobin of 6.1 on arrival * unknown baseline. * Reticulocyte count low at 0.08 suggestive of hypoproliferative bone marrow * ferritin low 8.04 * Iron 14 * suggestive of iron deficiency. * Transfuse 2 units of PRBC * Trend H&H current 7.7/27.9 * Ferrous sulfate 325 b.i.d. folic acid 1 mg p.o. daily * stool occult blood done in the ER was negative, recheck (still needs to be collected) (3) Iron deficiency: Code(s): E61.1 - Iron deficiency Status: Acute Assessment and Plan: * Anemia labs performed and suggest iron deficiency anemia * Iron and folic acid added to regimen (4) Coronary artery disease: Code(s): I25.10 - Atherosclerotic heart disease of [place] coronary artery without angina pectoris Status: Acute Assessment and Plan: * Continue metoprolol 50 mg p.o. 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 daily * Strict I&O (7) Hypertension: Code(s): I10 - Essential (primary) hypertension Status: Acute Assessment and Plan: * Blood pressure better today 120/50 * Blood pressure labile probably from anemia * Trend blood pressure * Adjust medications as needed (8) Elevated troponin: Code(s): R77.8 - Other specified abnormalities of plasma proteins Status: Acute Assessment and Plan: * Troponins elevated * 1st 0.894 followed by 1.290 followed by 1.590 * Probably related to anemia which indicated type 2 [place] * Cardiology consult you for your recommendations * telemetry monitor * Echo EF of 45% with normal diastolic function * Electrolyte management (9) Hyponatremia: Code(s): E87.1 - Hypo-osmolality and hyponatremia Status: Acute Assessment and Plan: * NA 133 today * diet advanced * Could be from hypervolemia * Trend labs (10) UTI (urinary tract infection): Code(s): N39.0 - Urinary tract infection, site not specified Status: Acute Assessment and Plan: * Urine culture positive for Ecoli * ceftriaxone * wait for susceptibilities * Nallely antibiotics to sensitives Time Spent With Patient Time with patient: 25 - 35 minutes Subjective Date/time seen: 02/03/21 13:30 Interval
--- NOTE | 2021-02-03 15:35 | PM.IMPN ---
Progress Note: A&P Assessment and Plan (1) Fall: Qualifiers: Encounter type: initial encounter Qualified Code(s): W19.XXXA - Unspecified fall, initial encounter Code(s): W19.XXXA - Unspecified fall, initial encounter Status: Acute Assessment and Plan: mechanical fall uses walker at home all the time PT OT. Probably from the anemia will need rehab placement (2) Anemia: Qualifiers: Anemia type: iron deficiency Iron deficiency anemia type: inadequate dietary iron intake Qualified Code(s): D50.8 - Other iron deficiency anemias Code(s): D64.9 - Anemia, unspecified Status: Acute Assessment and Plan: Severe anemia hemoglobin of 6.1 on arrival unknown baseline. Reticulocyte count low at 0.08 suggestive of hypoproliferative bone marrow ferritin low 8.04 Iron 14 suggestive of iron deficiency. Transfuse 2 units of PRBC Trend H&H current 7.7/27.9 Ferrous sulfate 325 b.i.d. folic acid 1 mg p.o. daily stool occult blood done in the ER was negative, recheck (still needs to be collected) (3) Iron deficiency: Code(s): E61.1 - Iron deficiency Status: Acute Assessment and Plan: Anemia labs performed and suggest iron deficiency anemia Iron and folic acid added to regimen (4) Coronary artery disease: Code(s): I25.10 - Atherosclerotic heart disease of [place] coronary artery without angina pectoris Status: Acute Assessment and Plan: Continue metoprolol 50 mg p.o. daily Consider adding aspirin if no source of bleeding is noted (5) History of coronary artery bypass graft: Code(s): Z95.1 - Presence of aortocoronary bypass graft Status: Acute Assessment and Plan: See above (6) BPH (benign prostatic hyperplasia): Code(s): N40.0 - Benign prostatic hyperplasia without lower urinary tract symptoms Status: Acute Assessment and Plan: Continue tamsulosin 0.4 mg p.o. daily Strict I&O (7) Hypertension: Code(s): I10 - Essential (primary) hypertension Status: Acute Assessment and Plan: Blood pressure better today 120/50 Blood pressure labile probably from anemia Trend blood pressure Adjust medications as needed (8) Elevated troponin: Code(s): R77.8 - Other specified abnormalities of plasma proteins Status: Acute Assessment and Plan: Troponins elevated 1st 0.894 followed by 1.290 followed by 1.590 Probably related to anemia which indicated type 2 [place] Cardiology consult you for your recommendations traffic monitor specialist Echo EF of 45% with normal diastolic function Electrolyte management (9) Hyponatremia: Code(s): E87.1 - Hypo-osmolality and hyponatremia Status: Acute Assessment and Plan: NA 133 today diet advanced Could be from hypervolemia Trend labs (10) UTI (urinary tract infection): Code(s): N39.0 - Urinary tract infection, site not specified Status: Acute Assessment and Plan: Urine culture positive for Ecoli ceftriaxone wait for susceptibilities Nallely antibiotics to sensitives Time Spent With Patient Time with patient: 25 - 35 minutes Subjective Date/time seen: 02/03/21 13:30 Interval history: Patient is a 80 year old here for anemia. He was also found to have a UTI today, in which he has been started on IV antibiotics. His hemiglobin is lower by 1pt today to 7.7. He does say that he is weak and not feeling good today. He also stated that he is very tired and is having a hard time keeping his eyes open. He did deny chest pain, shortness of breath, nausea, vomiting, fevers, chills, and sweats. I think that the weakness and fatigue is related to the anemia which is from lack of dietary intake H&H should be trended more Review of Systems Review of Systems: All systems reviewed & are
[2021-02-03 16:18] LABS: Hematocrit 28.2 % (42.0-52.0); Hemoglobin 7.7 g/dL (14.0-18.0)
[2021-02-04] VITALS (10 sets, daily range): BP systolic 112–137; BP diastolic 57–77; PULSE 74–96; RESP 16–18; TEMP 36–37.1; O2SAT 96
[2021-02-04 04:53] LABS: Albumin 3.4 g/dL (3.8-4.8); Alpha 1 Globulin 0.6 g/dL (0.2-0.3); Alpha 2 Globulin 0.8 g/dL (0.5-0.9); Beta 1 Globulin 0.6 g/dL (0.4-0.6); Gamma Globulin 0.8 g/dL (0.8-1.7); Protein, Total 6.4 g/dL (6.1-8.1)
[2021-02-04 06:26] LABS: Basophils Percent Auto 0.3 % (0.2-1.2); Eosinophils Absolute Auto 0.1 K/mm3 (0-0.3); Eosinophils Percent Auto 1.4 % (0-4.4); Hematocrit 28.4 % (42.0-52.0); Hemoglobin 7.7 g/dL (14.0-18.0); Immature Granulocyte Absolute 0.04 K/mm3 (0.00-0.031); Immature Granulocyte Percent A 0.4 % (0-0.5); Lymphocytes Absolute Auto 5.01 K/mm3 (0.9-3.2); Mean Corpuscular HGB Conc 27.1 g/dl (32-36); Mean Corpuscular Hemoglobin 19.6 pg (26-34); Mean Corpuscular Volume 72.4 fl (80-100); Mean Platelet Volume 8.8 fl (7.4-10.4); Monocytes Absolute Auto 0.4 K/mm3 (0.1-0.6); Monocytes Percent Auto 4.1 % (2.6-8.5); Neutrophils Absolute Auto 4.6 K/mm3 (1.3-6.7); Neutrophils Percent Auto 44.8 % (45.5-73.1); Platelet Count Result 247 k/mm3 (150-375); Red Blood Count 3.92 M/mm3 (4.6-6.20); Red Cell Distribution Width 25.1 % (11.5-14.5); White Blood Count 10.2 K/mm3 (4.5-10.0)
[2021-02-04 06:39] LABS: Alanine Aminotransferase 7 U/L (4-50); Albumin Level 3.1 g/dL (3.5-5.1); Alkaline Phosphatase 90 U/L (38-126); Anion Gap 8 mmol/L (8-16); Aspartate Amino Transferase 23 U/L (17-59); Bilirubin,Total 0.4 mg/dL (0.2-1.3); Blood Urea Nitrogen 17 mg/dL (9-20); Calcium 7.9 mg/dL (8.4-10.2); Carbon Dioxide 23 mmol/L (22-30); Chloride 101 mmol/L (98-107); Estimated CRCL calculation 63 ml/min; Estimated Glomerular Filt Rate > 60; Glucose 93 mg/dL (65-110); Magnesium 2.3 mg/dL (1.6-2.3); Potassium 4.1 mmol/L (3.4-5.0); Sodium 132 mmol/L (137-145)
[2021-02-04 07:09] LABS: Hypochromasia 3+ (NORMAL)
[2021-02-04 07:10] LABS: Ovalocytes 2+ (NORMAL); Platelet Estimate Adequate (Adequate); Schistocytes 1+ (NORMAL); Tear Drop Cells 2+ (NORMAL)
[2021-02-04] MEDS: PANTOPRAZOLE 40 MG TABLET PO (08:19)
[2021-02-04] MEDS: TAMSULOSIN HCL 0.4 MG CAPSULE PO (08:19)
[2021-02-04] MEDS: FOLIC ACID 1 MG TABLET PO (08:19)
[2021-02-04] MEDS: METOPROLOL SUCCINATE EXT REL 50 MG TABCR PO (08:19)
[2021-02-04] MEDS: FERROUS SULFATE 324 MG TABLET PO ×2 (08:19→17:42)
[2021-02-04 09:51] LABS: NT Pro B Type Natriuretic Pept 975 pg/mL (5-100)
--- NOTE | 2021-02-04 10:57 | PCPTNOTE ---
Attempted to see patient for PT, however patient refused. Patient reported he is tired.
[2021-02-04 12:46] LABS: Haptoglobin 235 mg/dL (43-212)
[2021-02-04 14:06] LABS: Creatinine, Random Urine 86 mg/dL (20-320); Total Protein/Creatinine Ratio 256 mg/g creat (22-128)
--- NOTE | 2021-02-04 14:38 | P.PNIM_ITS ---
Progress Note: A&P Assessment and Plan (1) Fall: Qualifiers: Encounter type: initial encounter Qualified Code(s): W19.XXXA - Unspecified fall, initial encounter Code(s): W19.XXXA - Unspecified fall, initial encounter Status: Acute Assessment and Plan: * mechanical fall * uses walker at home all the time * PT OT. * Probably from the anemia * will need rehab placement will need prior Auth from insurance company. * Insurance company closed today (2) Anemia: Qualifiers: Anemia type: iron deficiency Iron deficiency anemia type: inadequate dietary iron intake Qualified Code(s): D50.8 - Other iron deficiency anemias Code(s): D64.9 - Anemia, unspecified Status: Acute Assessment and Plan: * Severe anemia hemoglobin of 6.1 on arrival * unknown baseline. * Reticulocyte count low at 0.08 suggestive of hypoproliferative bone marrow * ferritin low 8.04 * Iron 14 * suggestive of iron deficiency. * Transfuse 2 units of PRBC * Trend H&H current 7.7/28.4 * Ferrous sulfate 325 b.i.d. folic acid 1 mg p.o. daily * stool occult blood done in the ER was negative, (3) Iron deficiency: Code(s): E61.1 - Iron deficiency Status: Acute Assessment and Plan: * Anemia labs performed and suggest iron deficiency anemia * Iron and folic acid added to regimen (4) Coronary artery disease: Code(s): I25.10 - Atherosclerotic heart disease of [place] coronary artery without angina pectoris Status: Acute Assessment and Plan: * Continue metoprolol 50 mg p.o. 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 daily * Strict I&O (7) Hypertension: Code(s): I10 - Essential (primary) hypertension Status: Acute Assessment and Plan: * Blood pressure better today 120/50 * Blood pressure labile probably from anemia * Trend blood pressure * Adjust medications as needed (8) Elevated troponin: Code(s): R77.8 - Other specified abnormalities of plasma proteins Status: Acute Assessment and Plan: * Troponins elevated * 1st 0.894 followed by 1.290 followed by 1.590 * Probably related to anemia which indicated type 2 [place] * Cardiology consult you for your recommendations * case monitor * Echo EF of 45% with normal diastolic function * Electrolyte management (9) Hyponatremia: Code(s): E87.1 - Hypo-osmolality and hyponatremia Status: Acute Assessment and Plan: * NA 132 today * diet advanced * Could be from hypervolemia * Trend labs (10) UTI (urinary tract infection): Code(s): N39.0 - Urinary tract infection, site not specified Status: Acute Assessment and Plan: * Urine culture positive for Ecoli * ceftriaxone * Susceptibilities confirm ceftriaxone * patient can DC on ciprofloxacin Subjective Date/time seen: 02/04/21 14:00 Interval history: angeline
--- NOTE | 2021-02-04 14:38 | PM.IMPN ---
Progress Note: A&P Assessment and Plan (1) Fall: Qualifiers: Encounter type: initial encounter Qualified Code(s): W19.XXXA - Unspecified fall, initial encounter Code(s): W19.XXXA - Unspecified fall, initial encounter Status: Acute Assessment and Plan: mechanical fall uses walker at home all the time PT OT. Probably from the anemia will need rehab placement will need prior Auth from insurance company. Insurance company closed today (2) Anemia: Qualifiers: Anemia type: iron deficiency Iron deficiency anemia type: inadequate dietary iron intake Qualified Code(s): D50.8 - Other iron deficiency anemias Code(s): D64.9 - Anemia, unspecified Status: Acute Assessment and Plan: Severe anemia hemoglobin of 6.1 on arrival unknown baseline. Reticulocyte count low at 0.08 suggestive of hypoproliferative bone marrow ferritin low 8.04 Iron 14 suggestive of iron deficiency. Transfuse 2 units of PRBC Trend H&H current 7.7/28.4 Ferrous sulfate 325 b.i.d. folic acid 1 mg p.o. daily stool occult blood done in the ER was negative, (3) Iron deficiency: Code(s): E61.1 - Iron deficiency Status: Acute Assessment and Plan: Anemia labs performed and suggest iron deficiency anemia Iron and folic acid added to regimen (4) Coronary artery disease: Code(s): I25.10 - Atherosclerotic heart disease of [place] coronary artery without angina pectoris Status: Acute Assessment and Plan: Continue metoprolol 50 mg p.o. daily Consider adding aspirin if no source of bleeding is noted (5) History of coronary artery bypass graft: Code(s): Z95.1 - Presence of aortocoronary bypass graft Status: Acute Assessment and Plan: See above (6) BPH (benign prostatic hyperplasia): Code(s): N40.0 - Benign prostatic hyperplasia without lower urinary tract symptoms Status: Acute Assessment and Plan: Continue tamsulosin 0.4 mg p.o. daily Strict I&O (7) Hypertension: Code(s): I10 - Essential (primary) hypertension Status: Acute Assessment and Plan: Blood pressure better today 120/50 Blood pressure labile probably from anemia Trend blood pressure Adjust medications as needed (8) Elevated troponin: Code(s): R77.8 - Other specified abnormalities of plasma proteins Status: Acute Assessment and Plan: Troponins elevated 1st 0.894 followed by 1.290 followed by 1.590 Probably related to anemia which indicated type 2 [place] Cardiology consult you for your recommendations panel monitor Echo EF of 45% with normal diastolic function Electrolyte management (9) Hyponatremia: Code(s): E87.1 - Hypo-osmolality and hyponatremia Status: Acute Assessment and Plan: NA 132 today diet advanced Could be from hypervolemia Trend labs (10) UTI (urinary tract infection): Code(s): N39.0 - Urinary tract infection, site not specified Status: Acute Assessment and Plan: Urine culture positive for Ecoli ceftriaxone Susceptibilities confirm ceftriaxone patient can DC on ciprofloxacin Subjective Date/time seen: 02/04/21 14:00 Interval history: patient is 80-year-old male who is here for a fall. Hemoglobin hematocrit remained stable at 7.7 and 28.4 today. Patient stated that he would like to know when he was going to be moved. He said he feels fine and better today. He denies chest pain, shortness of breath, nausea, vomiting, diarrhea, constipation, numbness and tingling, falls. Patient did state that he is still weak and tired. Patient can be discharged just waiting for insurance Auth. according to case coordination insurance company was closed today and was unable to get authorization. Review of Systems Review of Systems: All systems re
--- NOTE | 2021-02-04 15:40 | PCPTNOTE ---
Attempted to see patient for PT this afternoon, however patient refused. Educated patient on the importance of therapy, patient continued to refuse. Patient reported don't feel like it.
[2021-02-05] VITALS (10 sets, daily range): BP systolic 115–133; BP diastolic 62–68; PULSE 69–87; RESP 16–18; TEMP 36.1–37; O2SAT 95–97
[2021-02-05 06:36] LABS: Alanine Aminotransferase 8 U/L (4-50); Albumin Level 3.4 g/dL (3.5-5.1); Alkaline Phosphatase 91 U/L (38-126); Anion Gap 6 mmol/L (8-16); Aspartate Amino Transferase 14 U/L (17-59); Bilirubin,Total 0.3 mg/dL (0.2-1.3); Blood Urea Nitrogen 16 mg/dL (9-20); Calcium 8.3 mg/dL (8.4-10.2); Carbon Dioxide 25 mmol/L (22-30); Chloride 102 mmol/L (98-107); Estimated CRCL calculation 63 ml/min; Estimated Glomerular Filt Rate > 60; Glucose 112 mg/dL (65-110); Magnesium 2.1 mg/dL (1.6-2.3); Potassium 3.8 mmol/L (3.4-5.0); Sodium 133 mmol/L (137-145)
[2021-02-05 06:43] LABS: Basophils Percent Auto 0.3 % (0.2-1.2); Eosinophils Absolute Auto 0.2 K/mm3 (0-0.3); Eosinophils Percent Auto 1.9 % (0-4.4); Hematocrit 31.7 % (42.0-52.0); Hemoglobin 8.4 g/dL (14.0-18.0); Immature Granulocyte Absolute 0.03 K/mm3 (0.00-0.031); Immature Granulocyte Percent A 0.4 % (0-0.5); Lymphocytes Absolute Auto 4.31 K/mm3 (0.9-3.2); Lymphocytes Percent Auto 55.3 % (18.3-44.2); Mean Corpuscular HGB Conc 26.5 g/dl (32-36); Mean Corpuscular Hemoglobin 19.6 pg (26-34); Mean Corpuscular Volume 73.9 fl (80-100); Mean Platelet Volume 8.6 fl (7.4-10.4); Monocytes Absolute Auto 0.3 K/mm3 (0.1-0.6); Neutrophils Percent Auto 38.1 % (45.5-73.1); Platelet Count Result 251 k/mm3 (150-375); Red Blood Count 4.29 M/mm3 (4.6-6.20); Red Cell Distribution Width 25.2 % (11.5-14.5); White Blood Count 7.8 K/mm3 (4.5-10.0)
[2021-02-05] MEDS: METOPROLOL SUCCINATE EXT REL 50 MG TABCR PO (08:34)
[2021-02-05] MEDS: FOLIC ACID 1 MG TABLET PO (08:35)
[2021-02-05] MEDS: PANTOPRAZOLE 40 MG TABLET PO (08:35)
[2021-02-05] MEDS: FERROUS SULFATE 324 MG TABLET PO ×2 (08:35→17:28)
[2021-02-05] MEDS: FUROSEMIDE INJ 40 MG/4 ML VIAL IV PUSH (08:35)
[2021-02-05] MEDS: TAMSULOSIN HCL 0.4 MG CAPSULE PO (08:35)
[2021-02-05 09:23] LABS: Hypochromasia 2+ (NORMAL); Large Platelets Present; Ovalocytes 2+ (NORMAL); Platelet Estimate Adequate (Adequate)
--- NOTE | 2021-02-05 11:35 | PCPTNOTE ---
Attempted to see patient for PT at this time, however patient refused. Patient shook his head no and stated why don't you people leave me alone, I want to sleep. Encouraged patient to participate in therapy and patient continued to refuse.
--- NOTE | 2021-02-05 11:53 | PCOTNOTE ---
Attempted to see Pt for therapy this AM, however, pt refused stating Alexander varela why cant you people just leave me alone. Go the marik away. Pt was educated and encouraged to participate, however, pt. removed his hearing aids and said nichole off .
--- NOTE | 2021-02-05 13:34 | PCPTNOTE ---
Attempted to see patient for PT at this time, however patient refused.
--- NOTE | 2021-02-05 16:06 | P.PNIM_ITS ---
Progress Note: A&P Assessment and Plan (1) Discharge planning issues: Code(s): Z02.9 - Encounter for administrative examinations, unspecified Status: Acute Assessment and Plan: * Patient will go to rehab * insurance company needs a pre authorization * care coordination says this could take up to 3 days (2) Fall: Qualifiers: Encounter type: initial encounter Qualified Code(s): W19.XXXA - Unspecified fall, initial encounter Code(s): W19.XXXA - Unspecified fall, initial encounter Status: Acute Assessment and Plan: * mechanical fall * uses walker at home all the time * PT/OT. * Probably from the anemia * will need rehab placement will need prior Auth from insurance [employer]. * Pre auth pending. hoping in the am could take three days (3) UTI (urinary tract infection): Code(s): N39.0 - Urinary tract infection, site not specified Status: Acute Assessment and Plan: * Urine culture positive for Ecoli * ceftriaxone * Susceptibilities confirm ceftriaxone * patient can DC on ciprofloxacin (4) Anemia: Qualifiers: Anemia type: iron deficiency Iron deficiency anemia type: inadequate dietary iron intake Qualified Code(s): D50.8 - Other iron deficiency anemias Code(s): D64.9 - Anemia, unspecified Status: Acute Assessment and Plan: * Severe anemia hemoglobin of 6.1 on arrival * unknown baseline. * Reticulocyte count low at 0.08 suggestive of hypoproliferative bone marrow * ferritin low 8.04 * Iron 14 * suggestive of iron deficiency. * Transfuse 2 units of PRBC * Trend H&H current 8.4/31.7 * Ferrous sulfate 325 b.i.d. folic acid 1 mg p.o. daily * stool occult blood done in the ER was negative, (5) Iron deficiency: Code(s): E61.1 - Iron deficiency Status: Acute Assessment and Plan: * Anemia labs performed and suggest iron deficiency anemia * Iron and folic acid added to regimen (6) Coronary artery disease: Code(s): I25.10 - Atherosclerotic heart disease of [place] coronary artery without angina pectoris Status: Acute Assessment and Plan: * Continue metoprolol 50 mg p.o. daily (7) History of coronary artery bypass graft: Code(s): Z95.1 - Presence of aortocoronary bypass graft Status: Acute Assessment and Plan: * See above (8) BPH (benign prostatic hyperplasia): Code(s): N40.0 - Benign prostatic hyperplasia without lower urinary tract symptoms Status: Acute Assessment and Plan: * Continue tamsulosin 0.4 mg p.o. daily * Strict I&O (9) Hypertension: Code(s): I10 - Essential (primary) hypertension Status: Acute Assessment and Plan: * Blood pressure better today 115/66 * Blood pressure labile probably from anemia * Trend blood pressure * Adjust medications as needed (10) Elevated troponin: Code(s): R77.8 - Other specified abnormalities of plasma proteins Status: Acute Assessment and Plan: * Troponins elevated * 1st 0.894 followed by 1.290 followed by 1.590 * Probably related to anemia which indicated type 2 [place] * Cardiology consult you for your recommendations * cardiac monitor * Echo EF of 45% with normal diastolic function * Electrolyte management (11) Hyponatremia: Code(s): E87.1 - Hyp
--- NOTE | 2021-02-05 16:06 | PM.IMPN ---
Progress Note: A&P Assessment and Plan (1) Discharge planning issues: Code(s): Z02.9 - Encounter for administrative examinations, unspecified Status: Acute Assessment and Plan: Patient will go to rehab insurance company needs a pre authorization care coordination says this could take up to 3 days (2) Fall: Qualifiers: Encounter type: initial encounter Qualified Code(s): W19.XXXA - Unspecified fall, initial encounter Code(s): W19.XXXA - Unspecified fall, initial encounter Status: Acute Assessment and Plan: mechanical fall uses walker at home all the time PT/OT. Probably from the anemia will need rehab placement will need prior Auth from insurance company. Pre auth pending. hoping in the am could take three days (3) UTI (urinary tract infection): Code(s): N39.0 - Urinary tract infection, site not specified Status: Acute Assessment and Plan: Urine culture positive for Ecoli ceftriaxone Susceptibilities confirm ceftriaxone patient can DC on ciprofloxacin (4) Anemia: Qualifiers: Anemia type: iron deficiency Iron deficiency anemia type: inadequate dietary iron intake Qualified Code(s): D50.8 - Other iron deficiency anemias Code(s): D64.9 - Anemia, unspecified Status: Acute Assessment and Plan: Severe anemia hemoglobin of 6.1 on arrival unknown baseline. Reticulocyte count low at 0.08 suggestive of hypoproliferative bone marrow ferritin low 8.04 Iron 14 suggestive of iron deficiency. Transfuse 2 units of PRBC Trend H&H current 8.4/31.7 Ferrous sulfate 325 b.i.d. folic acid 1 mg p.o. daily stool occult blood done in the ER was negative, (5) Iron deficiency: Code(s): E61.1 - Iron deficiency Status: Acute Assessment and Plan: Anemia labs performed and suggest iron deficiency anemia Iron and folic acid added to regimen (6) Coronary artery disease: Code(s): I25.10 - Atherosclerotic heart disease of [place] coronary artery without angina pectoris Status: Acute Assessment and Plan: Continue metoprolol 50 mg p.o. daily (7) History of coronary artery bypass graft: Code(s): Z95.1 - Presence of aortocoronary bypass graft Status: Acute Assessment and Plan: See above (8) BPH (benign prostatic hyperplasia): Code(s): N40.0 - Benign prostatic hyperplasia without lower urinary tract symptoms Status: Acute Assessment and Plan: Continue tamsulosin 0.4 mg p.o. daily Strict I&O (9) Hypertension: Code(s): I10 - Essential (primary) hypertension Status: Acute Assessment and Plan: Blood pressure better today 115/66 Blood pressure labile probably from anemia Trend blood pressure Adjust medications as needed (10) Elevated troponin: Code(s): R77.8 - Other specified abnormalities of plasma proteins Status: Acute Assessment and Plan: Troponins elevated 1st 0.894 followed by 1.290 followed by 1.590 Probably related to anemia which indicated type 2 [place] Cardiology consult you for your recommendations property assessment monitor Echo EF of 45% with normal diastolic function Electrolyte management (11) Hyponatremia: Code(s): E87.1 - Hypo-osmolality and hyponatremia Status: Acute Assessment and Plan: NA 133 today diet advanced Trend labs Time Spent With Patient Time with patient: 25 - 35 minutes Subjective Date/time seen: 02/05/21 16:06 Interval history: 02/04/21 16:06 patient is 80-year-old male who is here for a fall. Hemoglobin hematocrit remained stable at 7.7 and 28.4 today. Patient stated that he would like to know when he was going to be moved. He said he feels fine and better today. He denies chest pain, shortness of breath, nausea, vomiting, diarrhea, constipa
[2021-02-06] VITALS (11 sets, daily range): BP systolic 129–145; BP diastolic 58–79; PULSE 61–78; RESP 16–18; TEMP 36.1–37.2; O2SAT 95–98
[2021-02-06 06:06] LABS: Basophils Percent Auto 0.4 % (0.2-1.2); Eosinophils Absolute Auto 0.2 K/mm3 (0-0.3); Eosinophils Percent Auto 1.8 % (0-4.4); Hematocrit 28.5 % (42.0-52.0); Hemoglobin 7.8 g/dL (14.0-18.0); Immature Granulocyte Absolute 0.02 K/mm3 (0.00-0.031); Immature Granulocyte Percent A 0.2 % (0-0.5); Lymphocytes Absolute Auto 4.88 K/mm3 (0.9-3.2); Lymphocytes Percent Auto 58.4 % (18.3-44.2); Mean Corpuscular HGB Conc 27.4 g/dl (32-36); Mean Corpuscular Hemoglobin 19.8 pg (26-34); Mean Corpuscular Volume 72.5 fl (80-100); Mean Platelet Volume 8.8 fl (7.4-10.4); Monocytes Absolute Auto 0.3 K/mm3 (0.1-0.6); Monocytes Percent Auto 4.1 % (2.6-8.5); Neutrophils Absolute Auto 2.9 K/mm3 (1.3-6.7); Neutrophils Percent Auto 35.1 % (45.5-73.1); Platelet Count Result 254 k/mm3 (150-375); Red Blood Count 3.93 M/mm3 (4.6-6.20); Red Cell Distribution Width 25.5 % (11.5-14.5); White Blood Count 8.4 K/mm3 (4.5-10.0)
[2021-02-06 06:25] LABS: Alanine Aminotransferase 7 U/L (4-50); Albumin Level 3.2 g/dL (3.5-5.1); Alkaline Phosphatase 82 U/L (38-126); Anion Gap 8 mmol/L (8-16); Aspartate Amino Transferase 15 U/L (17-59); Bilirubin,Total 0.3 mg/dL (0.2-1.3); Blood Urea Nitrogen 21 mg/dL (9-20); Calcium 8.4 mg/dL (8.4-10.2); Carbon Dioxide 25 mmol/L (22-30); Chloride 99 mmol/L (98-107); Estimated CRCL calculation 63 ml/min; Estimated Glomerular Filt Rate > 60; Glucose 99 mg/dL (65-110); Magnesium 1.9 mg/dL (1.6-2.3); Sodium 132 mmol/L (137-145)
[2021-02-06] MEDS: METOPROLOL SUCCINATE EXT REL 50 MG TABCR PO (07:47)
[2021-02-06] MEDS: FERROUS SULFATE 324 MG TABLET PO ×2 (07:47→17:18)
[2021-02-06] MEDS: TAMSULOSIN HCL 0.4 MG CAPSULE PO (07:47)
[2021-02-06] MEDS: FOLIC ACID 1 MG TABLET PO (07:47)
[2021-02-06] MEDS: PANTOPRAZOLE 40 MG TABLET PO (07:48)
--- NOTE | 2021-02-06 08:51 | PCOTNOTE ---
Pt. initially evaluated on 02/01/2021 for occupational therapy services. Pt. has refused all attempts for services through 02/05/2021. Pt. being discharged from services at this time.
--- NOTE | 2021-02-06 09:15 | PM.PNCARD ---
Progress Note: A&P Assessment and Plan (1) Elevated troponin: Code(s): R77.8 - Other specified abnormalities of plasma proteins Status: Acute Assessment and Plan: Patient presented with a chief complaint of fall. Troponin levels were drawn in the emergency department for unclear reasons. The patient denied chest pain at that time and is continuing to deny chest pain now. EKG without any evidence of ischemia. He was found to be profoundly anemic with a hemoglobin of 6.1. His elevated troponins likely represent a type II IL in the setting of profound anemia. He has been transfused. No indication for ischemic evaluation at this time. No anginal symptoms. Echo showed Mild left ventricular dysfunction with hyper basal inferior wall and basal and mid septal segments. Ejection fraction calculated to be 45%. Normal diastolic function. Will initiate lisinopril 2.5mg daily. Will titrate as OP as BP allows. (2) Coronary artery disease: Code(s): I25.10 - Atherosclerotic heart disease of [place] coronary artery without angina pectoris Status: Acute Assessment and Plan: He does have history of coronary disease with coronary bypass grafting which by patient report was somewhere from 5-8 years ago. He continues to deny chest pain. He was on aspirin or statin at home. (3) Hypertension: Code(s): I10 - Essential (primary) hypertension Status: Acute Assessment and Plan: History of hypertension. On metoprolol at home. Blood pressure is at goal currently. Subjective Date/time seen: 02/06/21 09:15 Review of Systems Review of Systems: All systems reviewed & are unremarkable except as noted in HPI and below Constitutional: Constitutional: Reports fatigue and Reports lethargy Eyes: Eyes: Denies blurry vision and Denies change in vision ENT: Denies Normal hearing present, Denies epistaxis and Denies neck pain Cardiovascular: Cardiovascular: Denies chest pain, Denies diaphoresis, Denies pedal edema, Denies leg edema, Reports lightheadedness, Denies palpitations, Reports dyspnea and Reports dyspnea on exertion Respiratory: Respiratory: Reports dyspnea and Reports dyspnea on exertion Gastrointestinal: Gastrointestinal: Denies melena and Denies hematochezia Genitourinary: Genitourinary: Denies hematuria Musculoskeletal: Musculoskeletal: Denies back pain and Denies neck pain Integumentary/Breasts: Skin/Breast: Denies unusual bruising Neurologic: Denies Normal hearing present and Reports confusion Psychiatric: Psychiatric: Denies anxiety, Reports confusion and Denies depression Endocrine: Endocrine: Reports fatigue and Denies palpitations Hematologic/Lymphatic: Hematologic/Lymphatic: Denies easy bleeding and Denies easy bruising Exam Const: General: comfortable, no acute distress and confusion Orientation/consciousness: confusion Other: Elderly gentleman lying in bed comfortably. Upset that I woke him up. HENMT: Head: normal to inspection Ears: hearing grossly abnormal bilaterally ( Wearing hearing aids) Eyes: General: appearance normal, both eyes and all related structures Pupils: Equal, round and reactive pupils present Neck: Neck: supple and no JVD Resp: Effort & Inspection: normal respiratory effort Auscultation: clear to auscultation bilaterally and no crackles Cardio: Rate: regular rate Rhythm: regular rhythm Heart sounds: no murmurs GI: Auscultation: normal bowel sounds Skin: General skin exam: No normal color ( pale) Neuro: General: confusion Cranial nerves: Yes Equal, round and reactive pupils present and No Normal hearing present Cognition (Neuro): normal cognition Speech: No normal speech Other: slow speech pattern Extrem: General: normal to inspection, no edema and no pedal edema Other: distal pulses intact Psych: Mental Status: mental status grossly abnormal Objective Data Vital Signs Vital Signs: Vital Signs - 24 hr 01/24
[2021-02-06 09:27] LABS: Hypochromasia 2+ (NORMAL); Platelet Estimate Adequate (Adequate); Poikilocytosis 1+ (NORMAL)
--- NOTE | 2021-02-06 10:00 | PCPTNOTE ---
Attempted physical therapy at this time. Patient refused to try to scoot himself up and bed and refused to participate in therapy at this time. Patient reports all I want is to be scooted up in bed .
--- NOTE | 2021-02-06 11:22 | PCNFU ---
Nutrition Follow-Up Complete: Altered lab values related to anemia as evidenced by Hgb of 6.1 and weakness. Goal: Patient to meet estimated nutritional needs. Patient has limited progress towards goal. We will continue current goal. Pt current nutrition is Heart Healthy. Last recorded weight is 60.5 kg, no new weight to report. Bowel Motility:+BM reported 02/05 Labs Reviewed:Na 132,BUN 21,Hct 28.5,Hgb 7.8 Meds Noted:Flomax, Toprol, Protonix, Rocephin, Folic Acid Additional Notes: Nutrition follow up. Patient currently on a heart healthy diet with poor po intake. Discussed oral intake with nursing today. Patient having difficulty chewing due to dentition. MD orders for Easy to Chew, Level 7 diet. PO intake encouraged. Monitor patient's labs, medications, weight, and oral intake every 5 days.
--- NOTE | 2021-02-06 14:08 | PM.IMPN ---
Progress Note: A&P Assessment and Plan (1) Discharge planning issues: Code(s): Z02.9 - Encounter for administrative examinations, unspecified Status: Acute Assessment and Plan: Patient requires SNF and we are awaiting authorization -he does not always participate in therapy and I have spoke with him about the importance of continuing with physical therapy -continue PT OT (2) Fall: Qualifiers: Encounter type: initial encounter Qualified Code(s): W19.XXXA - Unspecified fall, initial encounter Code(s): W19.XXXA - Unspecified fall, initial encounter Status: Acute Assessment and Plan: Mechanical fall at home -uses walker at home all the time -likely due to deconditioning, UTI as well as anemia -continue PT and OT (3) UTI (urinary tract infection): Code(s): N39.0 - Urinary tract infection, site not specified Status: Acute Assessment and Plan: Urine culture positive for Ecoli -continue ceftriaxone (4) Anemia: Qualifiers: Anemia type: iron deficiency Iron deficiency anemia type: inadequate dietary iron intake Qualified Code(s): D50.8 - Other iron deficiency anemias Code(s): D64.9 - Anemia, unspecified Status: Acute Assessment and Plan: Hemoglobin has been stable at 7.8 today -he had a hemoglobin of 6.1 on arrival -unknown baseline. -he has iron deficiency anemia and decreased folic acid. Both of these have been supplemented -EGD and colonoscopy does not show any etiology for the iron deficiency -would recommend follow-up with Hematology at discharge (5) Iron deficiency: Code(s): E61.1 - Iron deficiency Status: Acute Assessment and Plan: As above (6) Coronary artery disease: Code(s): I25.10 - Atherosclerotic heart disease of [place] coronary artery without angina pectoris Status: Acute Assessment and Plan: Continue metoprolol 50 mg p.o. daily -echo shows systolic dysfunction, patient appears euvolemic -cardiology consulted, I appreciate their recommendations (7) History of coronary artery bypass graft: Code(s): Z95.1 - Presence of aortocoronary bypass graft Status: Acute Assessment and Plan: As above (8) BPH (benign prostatic hyperplasia): Code(s): N40.0 - Benign prostatic hyperplasia without lower urinary tract symptoms Status: Acute Assessment and Plan: Continue tamsulosin 0.4 mg p.o. daily (9) Hypertension: Code(s): I10 - Essential (primary) hypertension Status: Acute Assessment and Plan: Last blood pressure 145/79 -continue metoprolol (10) Elevated troponin: Code(s): R77.8 - Other specified abnormalities of plasma proteins Status: Acute Assessment and Plan: Troponins elevated; 1st 0.894 followed by 1.290 followed by 1.590 -likely related to anemia which indicated type 2 DC -Echo EF of 45% with normal diastolic function (11) Hyponatremia: Code(s): E87.1 - Hypo-osmolality and hyponatremia Status: Acute Assessment and Plan: Currently 132 Time Spent With Patient Time with patient: 25 - 35 minutes Subjective Date/time seen: 02/06/21 14:08 Interval history: Pt is a 80-year-old male here for fall and UTI. Patient was seen today and has no complaints. Pt denies nausea, vomiting, fevers, chills, constipation, diarrhea, chest pain, sob, or abdominal pain. He says he wants to go home Review of Systems Review of Systems: All systems reviewed & are unremarkable except as noted in HPI and below Exam Narrative: General: Well developed well nourished patient in NAD HEENT: normocephalic Neck: supple Neuro: Alert and oriented x4. Cranial nerves 2-12 intact. Equal strength the upper lower extremities 5/5 CV:RRR Resp:CTA Abd: Soft, non distended. No pain to palpation. Positive bowel sounds Extremities: No sw
[2021-02-07] VITALS (7 sets, daily range): BP systolic 116–134; BP diastolic 63–67; PULSE 61–74; RESP 14–20; TEMP 36.4–36.6; O2SAT 95–96
[2021-02-07 05:48] LABS: Hematocrit 28.9 % (42.0-52.0); Hemoglobin 7.8 g/dL (14.0-18.0)
[2021-02-07 05:58] LABS: Anion Gap 8 mmol/L (8-16); Blood Urea Nitrogen 18 mg/dL (9-20); Calcium 8.6 mg/dL (8.4-10.2); Carbon Dioxide 24 mmol/L (22-30); Chloride 101 mmol/L (98-107); Estimated CRCL calculation 73 ml/min; Estimated Glomerular Filt Rate > 60; Glucose 95 mg/dL (65-110); Potassium 3.8 mmol/L (3.4-5.0); Sodium 133 mmol/L (137-145)
[2021-02-07 07:08] LABS: EDCOVIDSCREEN Negative (Negative)
[2021-02-07] MEDS: FOLIC ACID 1 MG TABLET PO (08:21)
[2021-02-07] MEDS: METOPROLOL SUCCINATE EXT REL 50 MG TABCR PO (08:21)
[2021-02-07] MEDS: FERROUS SULFATE 324 MG TABLET PO ×2 (08:21→17:28)
[2021-02-07] MEDS: TAMSULOSIN HCL 0.4 MG CAPSULE PO (08:22)
[2021-02-07] MEDS: PANTOPRAZOLE 40 MG TABLET PO (08:22)
[2021-02-07] MEDS: lisinopriL 2.5 MG TABLET PO (10:41)
--- NOTE | 2021-02-07 11:18 | PM.DS ---
DS: Admitting Diagnosis Discharge Date 02/07/2021 Admitting Diagnosis UTI, anemia DS: Discharge Diagnosis Discharge Diagnosis (1) Discharge planning issues: Code(s): Z02.9 - Encounter for administrative examinations, unspecified Status: Acute Assessment and Plan: Hospitalization was prolonged due to awaiting insurance and placement authorization (2) Fall: Qualifiers: Encounter type: initial encounter Qualified Code(s): W19.XXXA - Unspecified fall, initial encounter Code(s): W19.XXXA - Unspecified fall, initial encounter Status: Acute Assessment and Plan: Mechanical fall at home -uses walker at home all the time -likely due to deconditioning, UTI as well as anemia -continue PT and OT at SNF (3) UTI (urinary tract infection): Code(s): N39.0 - Urinary tract infection, site not specified Status: Acute Assessment and Plan: E coli UTI noted on urine culture. he was given ceftriaxone during admission and was discharged on cefdinir (4) Anemia: Qualifiers: Anemia type: iron deficiency Iron deficiency anemia type: inadequate dietary iron intake Qualified Code(s): D50.8 - Other iron deficiency anemias Code(s): D64.9 - Anemia, unspecified Status: Acute Assessment and Plan: Hemoglobin has been stable at 7.8 today -he had a hemoglobin of 6.1 on arrival -unknown baseline. -he has iron deficiency anemia and decreased folic acid. Both of these have been supplemented -EGD and colonoscopy does not show any etiology for the iron deficiency -would recommend follow-up with Hematology at discharge (5) Iron deficiency: Code(s): E61.1 - Iron deficiency Status: Acute Assessment and Plan: As above (6) Coronary artery disease: Code(s): I25.10 - Atherosclerotic heart disease of [place] coronary artery without angina pectoris Status: Acute Assessment and Plan: Continue metoprolol 50 mg p.o. daily -echo shows systolic dysfunction, patient appears euvolemic - cardiology was consulted and plans to follow up outpatient (7) History of coronary artery bypass graft: Code(s): Z95.1 - Presence of aortocoronary bypass graft Status: Acute Assessment and Plan: As above (8) BPH (benign prostatic hyperplasia): Code(s): N40.0 - Benign prostatic hyperplasia without lower urinary tract symptoms Status: Acute Assessment and Plan: Continue tamsulosin 0.4 mg p.o. daily (9) Hypertension: Code(s): I10 - Essential (primary) hypertension Status: Acute Assessment and Plan: Last blood pressure 116/63 -continue metoprolol (10) Elevated troponin: Code(s): R77.8 - Other specified abnormalities of plasma proteins Status: Acute Assessment and Plan: Troponins elevated; 1st 0.894 followed by 1.290 followed by 1.590 -likely related to anemia which indicated type 2 PA -Echo EF of 45% with normal diastolic function - lisinopril started, plans follow-up with Cardiology (11) Hyponatremia: Code(s): E87.1 - Hypo-osmolality and hyponatremia Status: Acute Assessment and Plan: Currently 133 DS: Summary Hospital Course Hospital Course: DOS 02/07/21 Patient is 80-year-old male with a history of a CABG who presented emergency room for a fall and confusion. Vitals in the ER were pulse 106, respiratory rate 25, blood pressure 117/77, pulse ox 96 on room air. CBC showed hemoglobin 6.1, hematocrit 23.8, white blood cell count 10.7, platelets 314. BMP within normal limits With a session of sodium 135. CT of the head showed no acute abnormalities with right maxillary sinus disease possibly acute. He had no complaints of sinus congestion, pressure, or fevers. Patient was transfused 2 units of blood and admitted to the hospitalist service. He was found to be iron deficient a
[2021-02-07 11:26] LABS: Phosphorus 3.7 mg/dL (2.5-4.5)
[2021-02-07 15:00] LABS: Free T4 Free Thyroxine 1.07 ng/mL (0.78-2.19)
== END 2021-02-07 17:40 | DRG 811 ==
LOC: ANHED 02-01 00:43 → ANH3MED 02-01 03:52
PROVIDERS: Internal Medicine Gastroenterology; Nurse Practitioner; Physician Assistant; Admitting Provider Internal Medicine; Emergency Provider Family Medicine; PCP Family Medicine; Visit Provider Internal Medicine
PROC: 0DJ08ZZ Inspection of Upper Intestinal Tract, Via Natural or Artificial Opening Endoscopic (ICD-10-PCS; CPT 43235; principal; 2021-02-02 13:00)
DX: D50.8 Other iron deficiency anemias (principal); I21.A1 Myocardial infarction type 2; N39.0 Urinary tract infection, site not specified; E87.1 Hypo-osmolality and hyponatremia; B96.20 Unspecified Escherichia coli [E. coli] as the cause of diseases classified elsewhere; K44.9 Diaphragmatic hernia without obstruction or gangrene; K29.70 Gastritis, unspecified, without bleeding; K63.5 Polyp of colon; Z20.822 Contact with and (suspected) exposure to COVID-19; N40.0 Benign prostatic hyperplasia without lower urinary tract symptoms; I10 Essential (primary) hypertension; I25.10 Atherosclerotic heart disease of native coronary artery without angina pectoris; W19.XXXA Unspecified fall, initial encounter; Z95.1 Presence of aortocoronary bypass graft; Z87.891 Personal history of nicotine dependence; Z79.82 Long term (current) use of aspirin
CPT/HCPCS: 36415; 36430; 70450; 80048; 80053; 80307; 81001; 82274; 82570; 82607; 82728; 82746; 83010; 83540; 83550; 83615; 83735; 83880; 84100; 84155; 84156; 84165; 84166; 84439; 84443; 84484; 85014; 85018; 85025; 85046; 85060; 86850; 86880; 86900; 86901; 86920; 87077; 87086; 87088; 87186; 87426; 88305; 93005; 93306; 97110; 97116; 97161; 97165; 97166; 97530; 99285; A9270; C9113; C9803; J0696; J1940; J2704; J7050; J7120; P9016

== ENCOUNTER 2022-01-10 11:09 | Inpatient (IN) | payer MEDICARE, MEDICAID, SELFPAY ==
[2022-01-10] VITALS (47 sets, daily range): BP systolic 88–131; BP diastolic 43–96; PULSE 70–97; RESP 14–27; TEMP 36.2–37.1; O2SAT 94–100; BMI 22.8; BMI 17.6
--- NOTE | ~2022-01-10 | CT_ITS ---
EXAMINATION: CT abdomen pelvis w con DATE: 01/10/2022 17:48 INDICATION: Generalized abdominal pain. Nausea. Shortness of breath. TECHNIQUE: Computed tomography (CT) of the abdomen and pelvis was performed with 100 mL Omnipaque 350 intravenous contrast. Automated exposure control and iterative reconstruction technique were employe d. The dose-length product was 384.14 mGy-cm. COMPARISON: None. FINDINGS: The visualized portions of the lung bases demonstrate mild atelectasis. No pleural effusion effusion. There is left atrial enlargement of the heart. There are coronary artery calcifications. T here are changes of coronary artery bypass grafting. No pericardial effusion. The liver, gallbladder, spleen, pancreas, and adrenal glands are normal. There is cortical thinning of the kidneys. There ar e cysts in the kidneys measuring up to 8 mm on the right. Stool distends the rectosigmoid. There is w all thickening of the rectum, consistent with stercoral colitis. The appendix is normal. There is dif fuse bladder wall thickening, likely secondary to chronic outlet obstruction from the mildly enlarged prostate. The bladder is distended. There are no pathologically enlarged lymph nodes. There is no fr ee intraperitoneal fluid. There is internal fixation of left femur. There is severe lumbar spondylosi s and moderate thoracic spondylosis. IMPRESSION: 1. Stercoral colitis. Reviewed, dictated and finalized at location A. IMPRESSION: 1. Stercoral colitis.
--- NOTE | ~2022-01-10 | XR_ITS ---
EXAMINATION: XR chest 2V DATE: 01/10/2022 12:41 INDICATION: Shortness of breath and nausea TECHNIQUE: AP and lateral views of the chest are obtained. COMPARISON: 10/16/2007 FINDINGS: There is a nodular opacity of the right midlung zone. No pleural effusion or pneumothorax. The cardiomediastinal silhouette is normal. There is severe thoracic spondylosis. Median sternotomy w ires and mediastinal surgical clips are seen, likely from prior coronary artery bypass grafting. [place] llic fragments are present in the right axilla. IMPRESSION: 1. No acute cardiopulmonary abnormality. 2. Indeterminate nodular opacity of the right midlung zone. Follow-up with nonemergent CT of the ches t is recommended. Reviewed, dictated and finalized at location A. IMPRESSION: 1. No acute cardiopulmonary abnormality. 2. Indeterminate nodular opacity of the right midlung zone. Follow-up with none mergent CT of the chest is recommended.
--- NOTE | 2022-01-10 11:12 | ECG_ITS ---
Measurements Intervals [place] Rate: 93 P: 92 IN: 210 QRS: -10 QRSD: 84 T: 75 QT: 339 QTc: 422 Interpretive Statements SINUS RHYTHM WITH FIRST DEGREE AV BLOCK WITH FREQUENT SUPRAVENTRICULAR PREMATURE COMPLEXES AND PREMATURE VENTRICULAR COMPLEXES ABNORMAL ECG COMPARED TO ECG 01/31/2021 22:38:39 SINUS RHYTHM NOW PRESENT FIRST DEGREE AV BLOCK NOW PRESENT Electronically Signed On 01-10-2022 13:56:04 CDT by Michel Dow M.D.
[2022-01-10 11:43] LABS: Basophils Absolute Auto 0.1 K/mm3 (0.0-0.1); Basophils Percent Auto 0.4 % (0.2-1.2); Eosinophils Absolute Auto 0.1 K/mm3 (0-0.3); Eosinophils Percent Auto 0.9 % (0-4.4); Hematocrit 26.5 % (42.0-52.0); Immature Granulocyte Absolute 0.04 K/mm3 (0.00-0.031); Immature Granulocyte Percent A 0.3 % (0-0.5); Lymphocytes Absolute Auto 8.61 K/mm3 (0.9-3.2); Lymphocytes Percent Auto 61.7 % (18.3-44.2); Mean Corpuscular Hemoglobin 18.9 pg (26-34); Mean Corpuscular Volume 72.4 fl (80-100); Mean Platelet Volume 8.2 fl (7.4-10.4); Monocytes Absolute Auto 0.5 K/mm3 (0.1-0.6); Monocytes Percent Auto 3.7 % (2.6-8.5); Neutrophils Absolute Auto 4.6 K/mm3 (1.3-6.7); Platelet Count Result 389 k/mm3 (150-375); Red Blood Count 3.66 M/mm3 (4.6-6.20); Red Cell Distribution Width 19.9 % (11.5-14.5)
[2022-01-10 11:50] LABS: Alanine Aminotransferase 10 U/L (6-50); Albumin Level 3.7 g/dL (3.5-5.1); Alkaline Phosphatase 96 U/L (38-126); Anion Gap 13 mmol/L (8-16); Aspartate Amino Transferase 20 U/L (17-59); Bilirubin,Total 0.3 mg/dL (0.2-1.3); Blood Urea Nitrogen 21 mg/dL (9-20); Calcium 8.5 mg/dL (8.4-10.2); Carbon Dioxide 19 mmol/L (22-30); Chloride 98 mmol/L (98-107); Estimated CRCL calculation 70 ml/min; Estimated Glomerular Filt Rate > 60; Glucose 120 mg/dL (65-110); Potassium 4.3 mmol/L (3.4-5.0); Sodium 130 mmol/L (137-145)
[2022-01-10 12:04] LABS: Hemoglobin 6.9 g/dL (14.0-18.0)
[2022-01-10 12:13] LABS: Anisocytosis 2+ (NORMAL); Crenated RBC 2+ (NORMAL); Hypochromasia 2+ (NORMAL); Ovalocytes 1+ (NORMAL); Platelet Estimate Increased (Adequate); Poikilocytosis 2+ (NORMAL)
--- NOTE | 2022-01-10 13:36 | ED.GENADULT ---
HPI - General Adult General Chief complaint: Shortness of Breath/Dyspnea Stated complaint: shortness of breath Time Seen by Provider: 01/10/22 12:18 History of Present Illness HPI narrative: 81-year-old male presenting to the emergency department for evaluation of shortness of breath. Patient states approximate 20 minutes prior to arrival he did have some onset of nausea. Patient states the nausea is resolved. Patient's hemoglobin was down to 6.9. Patient denied any abdominal pain. Patient denied any current nausea or vomiting. Patient denied any active bleeding. Related Data Home Medications Medication Instructions Recorded Confirmed ipratropium 20 mcg-albuterol 100 2 puff inhalation QID 02/01/21 06/06/21 mcg/actuation mist for inhalation (Combivent Respimat) metoprolol succinate 50 mg 50 mg PO DAILY 02/01/21 06/06/21 tablet,extended release 24 hr tamsulosin 0.4 mg capsule 0.4 mg PO DAILY 02/01/21 06/06/21 Allergies Allergy/AdvReac Type Severity Reaction Status Date / Time No Known Allergies Allergy Verified 06/06/21 13:31 Review of Systems Review of Systems: CONSTITUTIONAL: Denies fever, chills, or sweats. EYES: Denies visual changes, redness, or discharge. ENT: Denies rhinorrhea, congestion, sore throat, or otalgia. CARDIOVASCULAR: Denies chest pain, palpitations, or edema. RESPIRATORY: Denies cough or dyspnea. GASTROINTESTINAL: Denies abdominal pain, nausea, vomiting, or diarrhea. GENITOURINARY: Denies dysuria or hematuria. SKIN: Denies rash or itching. MUSCULOSKELETAL: Denies back pain, joint pain, or myalgia. NEUROLOGIC: Denies headache, numbness, or weakness. [facility] Past Medical History Medical History Iron deficiency anemia Family History Family History Sibling Congestive heart failure Sibling Congestive heart failure Father Hypertension Heart disease Mother Hypertension Heart disease Social History Social History Smoking packs per day: 0.5 Smoking cigarettes per day: 10.0 Years smoked: 5 Smoking pack-years: 2.50 Smoking status: Former smoker Tobacco type: cigarettes Alcohol intake: never Substance use: never Substance use type: does not use Spiritual care concerns: No Exam Narrative: APPEARANCE: Well appearing, no pain, no distress, well-nourished. HEAD: normocephalic, atraumatic. EYES: PERRLA/EOMI, conjunctivae clear. NECK: Supple. No adenopathy, no masses. RESPIRATORY: Airway patent, respirations nonlabored. Clear to auscultation bilaterally, no rales, rhonchi, wheezing. CARDIOVASCULAR: Regular rate and rhythm without murmurs rubs or gallops. ABDOMINAL: Soft, nontender, nondistended, normal bowel sounds MUSCULOSKELETAL: Moves all extremities. Strength/ROM intact, No edema, No calf tenderness. NEURO: Alert. Cranial nerves II through XII intact. Good gait. Good coordination SKIN: Warm, dry. Normal Color Course Course Emergency Course: CTA did show evidence of constipation and colitis. Patient was treated with 1 unit of packed red blood cells for his underlying anemia. Patient was unable to secure a ride at home and states he feels too weak to care for himself. Patient was discussed with the hospitalist and patient was accepted for admission. Vital Signs Vital signs: Vital Signs Temperature 97.3 F L 01/10/22 11:12 Pulse Rate 89 01/10/22 11:12 Respiratory Rate 18 01/10/22 11:12 Blood Pressure 98/59 L 01/10/22 11:12 Pulse Oximetry 98 01/10/22 11:12 Temperature 97.3 F L 01/10/22 18:32 Pulse Rate 70 01/10/22 18:32 Respiratory Rate 18 01/10/22 18:32 Blood Pressure 116/70 01/10/22 18:32 Pulse Oximetry 96 01/10/22 18:32 Medical Decision Making Vital Signs Vital Signs: Vital Signs Temperature 97.3 F L 01/10/22 11:12 Pulse Rate
[2022-01-10] MEDS: SODIUM CHLORIDE 0.9% IV 250 ML 30 ML IV CONT (15:22)
[2022-01-10] MEDS: TUBING, BLOOD SET 1 EACH XX (15:23)
--- NOTE | 2022-01-10 18:32 | PC.NURSE ---
pt reports he has no help at home and is not able to go home tonight. Reports help will be there tomorrow
--- NOTE | 2022-01-10 19:47 | PC.NURSE ---
pt pulled sln out by accident, new SLN placed in left hand
[2022-01-10 20:31] LABS: SARS-CoV-2 RNA PCR Negative
--- NOTE | 2022-01-10 21:59 | ADMGEN ---
This patient, Manpreet Crawley, was admitted to [facility] Surg Room 314-02. Patient/family oriented to hospital policies and general routines including ID bracelet, bed and alarms, visiting hours, pain management, procedures, bathroom and other care routines, personal items, smoking policy, room service/diet, and visiting hours. Information on how to activate the Rapid Response Team has been discussed. Patient/Family are encouraged to report perceived risks to care and to ask questions if they do not understand what they are told or what they should do.
[2022-01-11] VITALS (8 sets, daily range): BP systolic 96–118; BP diastolic 54–60; PULSE 51–86; RESP 17–20; TEMP 35.9–37.4; O2SAT 92–96; BMI 18.2
--- NOTE | 2022-01-11 00:30 | PM.IMHP ---
H&P: HPI History of Present Illness Date/Time: 01/11/22 00:30 Chief Complaint: Shortness of breath Narrative: Greater than 30 minute spent reviewing chart, evaluating, treating, counseling patient. Anticipate less than 48 hour admission, limit under observation. 81-year-old male past medical history of CAD status post CABG, heart failure with reduced ejection fraction (01/2021 TTE LVEF 45%), HTN, iron deficiency anemia. Presents with shortness of breath. Patient reports some nausea that is now resolved, however no vomiting. Denied abdominal pain, diarrhea/constipation. In ED, vitals stable. Lab workup remarkable for hemoglobin of 6.9, MCV 72.4, platelet 389. WBC 14, patient is afebrile. Sodium of 130, bicarb [address] abdomen/pelvis demonstrating stercoral colitis. Chest x-ray demonstrates nodular opacity in right mid lung. Patient given 1 unit of blood. Patient had EGD 01/2021 that showed mild gastritis, colonoscopy at that time was normal. Patient was placed on iron supplement, however reports he has not been taking that. Review of Systems Review of Systems: Ten point ROS reviewed, negative unless otherwise specified per HPI [facility] Past Medical History Medical History Iron deficiency anemia Family History Family History Sibling Congestive heart failure Sibling Congestive heart failure Father Hypertension Heart disease Mother Hypertension Heart disease Social History Social History Smoking packs per day: 0.5 Smoking cigarettes per day: 10.0 Years smoked: 5 Smoking pack-years: 2.50 Smoking status: Never smoker Tobacco type: cigarettes Alcohol intake: never Substance use: never Substance use type: does not use Spiritual care concerns: No Meds Home Medications and Allergies Home Medications Medication Instructions Recorded Confirmed Type ipratropium 20 mcg-albuterol 100 2 puff inhalation QID 02/01/21 01/10/22 History mcg/actuation mist for inhalation (Combivent Respimat) metoprolol succinate 50 mg 50 mg PO DAILY 02/01/21 01/10/22 History tablet,extended release 24 hr acetaminophen 325 mg capsule 325 mg PO Q4-6H PRN Pain, Mild 01/10/22 01/10/22 History Allergies Allergy/AdvReac Type Severity Reaction Status Date / Time No Known Allergies Allergy Verified 06/06/21 13:31 Vital Signs Vital Signs - 24 hr 01/10/22 11:12 01/10/22 14:09 01/10/22 14:48 Temperature 97.3 F L Pulse Rate 89 83 83 Respiratory Rate 18 24 H Blood Pressure 98/59 L 128/59 L Pulse Oximetry 98 98 Oxygen Delivery 01/10/22 14:48 01/10/22 12:44 01/10/22 12:45 Temperature Pulse Rate 85 Respiratory Rate 14 14 25 H Blood Pressure 102/50 L Pulse Oximetry 100 94 Oxygen Delivery 01/10/22 13:02 01/10/22 13:05 01/10/22 13:09 Temperature Pulse Rate 80 87 Respiratory Rate 15 24 H 24 H Blood Pressure 88/43 L 131/59 L Pulse Oximetry 100 99 Oxygen Delivery 01/10/22 13:15 01/10/22 13:17 01/10/22 13:31 Temperature Pulse Rate 80 81 Respiratory Rate 16 25 H 25 H Blood Pressure 117/57 L Pulse Oximetry 98 100 98 Oxygen Delivery 01/10/22 13:32 01/10/22 13:45 01/10/22 13:47 Temperature Pulse Rate 85 79 72 Respiratory Rate 25 H 22 H 27 H Blood Pressure 107/58 L 106/54 L Pulse Oximetry 96 97 97 Oxygen Delivery 01/10/22 14:00 01/10/22 14:17 01/10/22 14:18 Temperature Pulse Rate 97 89 88 Respiratory Rate 23 H 23 H 23 H Blood Pressure 116/63 Pulse Oximetry 97 95 98 Oxygen Delivery 01/10/22 14:48 01/10/22 15:20 01/10/22 15:36 Temperature 97.7 F 97.3 F L Pulse Rate 86 95 75 Respiratory Rate 25 H 26 H 18 Blood Pressure 113/59 L 109/48 L Pulse Oximetry 98 99 96 Oxygen Delivery 01/10/22 15:00 01/10/22 15:15
[2022-01-11 01:04] LABS: Lactic Acid Reflex 1.4 mmol/L (0.7-2.0)
[2022-01-11 05:06] LABS: Iron 81 ug/dL (49-181); Percent Iron Saturation 23 % (20-50)
[2022-01-11 07:29] LABS: Basophils Percent Auto 0.3 % (0.2-1.2); Eosinophils Absolute Auto 0.2 K/mm3 (0-0.3); Eosinophils Percent Auto 1.4 % (0-4.4); Hematocrit 28.7 % (42.0-52.0); Hemoglobin 7.8 g/dL (14.0-18.0); Immature Granulocyte Absolute 0.05 K/mm3 (0.00-0.031); Immature Granulocyte Percent A 0.4 % (0-0.5); Lymphocytes Absolute Auto 8.27 K/mm3 (0.9-3.2); Mean Corpuscular HGB Conc 27.2 g/dl (32-36); Mean Corpuscular Hemoglobin 20.3 pg (26-34); Mean Corpuscular Volume 74.7 fl (80-100); Mean Platelet Volume 8.3 fl (7.4-10.4); Monocytes Absolute Auto 0.5 K/mm3 (0.1-0.6); Monocytes Percent Auto 3.8 % (2.6-8.5); Neutrophils Absolute Auto 3.5 K/mm3 (1.3-6.7); Neutrophils Percent Auto 28.1 % (45.5-73.1); Platelet Count Result 344 k/mm3 (150-375); Red Blood Count 3.84 M/mm3 (4.6-6.20); Red Cell Distribution Width 20.9 % (11.5-14.5); White Blood Count 12.5 K/mm3 (4.5-10.0)
[2022-01-11 07:57] LABS: Anion Gap 9 mmol/L (8-16); Blood Urea Nitrogen 17 mg/dL (9-20); Calcium 8.3 mg/dL (8.4-10.2); Carbon Dioxide 22 mmol/L (22-30); Chloride 100 mmol/L (98-107); Estimated CRCL calculation 54 ml/min; Estimated Glomerular Filt Rate > 60; Glucose 91 mg/dL (65-110); Potassium 3.7 mmol/L (3.4-5.0); Sodium 131 mmol/L (137-145)
[2022-01-11 08:06] LABS: Platelet Estimate Increased (Adequate)
[2022-01-11 08:07] LABS: Anisocytosis 1+ (NORMAL); Burr Cells 1+ (NORMAL); Poikilocytosis 1+ (NORMAL); Smudge Cells PRESENT
[2022-01-11 08:54] LABS: Folic Acid 2.1 ng/mL (2.76->20)
[2022-01-11] MEDS: METOPROLOL SUCCINATE EXT REL 50 MG TABCR PO (09:08)
[2022-01-11] MEDS: ASPIRIN 81 MG ENTERIC TABLET PO (09:08)
[2022-01-11] MEDS: ATORVASTATIN 40 MG TABLET PO (09:08)
--- NOTE | 2022-01-11 13:33 | PCNSR ---
On 01/11/22, the student, Ml Cunningham, provided care and completed [facility] documentation on this patient. I have reviewed the student's documentation and agree with the findings.
[2022-01-11 21:43] LABS: IFOB Positive Control Positive; Immunochemical Fecal Occult Bl Negative (N)
[2022-01-12] VITALS (7 sets, daily range): BP systolic 108–127; BP diastolic 55–85; PULSE 73–109; RESP 16–20; TEMP 35.9–36.8; O2SAT 94–95
[2022-01-12 06:14] LABS: Hematocrit 29.5 % (42.0-52.0); Hemoglobin 8.1 g/dL (14.0-18.0); Mean Corpuscular HGB Conc 27.5 g/dl (32-36); Mean Corpuscular Hemoglobin 20.9 pg (26-34); Platelet Count Result 341 k/mm3 (150-375); Red Blood Count 3.88 M/mm3 (4.6-6.20); Red Cell Distribution Width 21.7 % (11.5-14.5); White Blood Count 12.7 K/mm3 (4.5-10.0)
[2022-01-12 06:21] LABS: Anion Gap 10 mmol/L (8-16); Blood Urea Nitrogen 21 mg/dL (9-20); Calcium 8.4 mg/dL (8.4-10.2); Carbon Dioxide 23 mmol/L (22-30); Chloride 98 mmol/L (98-107); Estimated CRCL calculation 56 ml/min; Estimated Glomerular Filt Rate > 60; Glucose 97 mg/dL (65-110); Potassium 3.8 mmol/L (3.4-5.0); Sodium 131 mmol/L (137-145)
[2022-01-12 06:46] LABS: Band Neutrophils Percent 4 % (0-6); Lymphocytes Absolute Manual 5.71 K/mm3 (1.1-4.5); Monocytes Absolute Manual 0.38 K/mm3 (0.1-0.90); Monocytes Percent Manual 3 % (3-9); Neutrophils Percent Manual 48 % (46-73); Total Cells Counted 100
[2022-01-12 06:50] LABS: Atypical Lymphocytes Present
[2022-01-12 06:52] LABS: Platelet Estimate Adequate (Adequate); Smudge Cells PRESENT
[2022-01-12] MEDS: METOPROLOL SUCCINATE EXT REL 50 MG TABCR PO (08:59)
[2022-01-12] MEDS: ATORVASTATIN 40 MG TABLET PO (09:00)
[2022-01-12] MEDS: ASPIRIN 81 MG ENTERIC TABLET PO (09:00)
--- NOTE | 2022-01-12 10:37 | PCPTNOTE ---
Attempted PT evaluation this date, he had his head down sleeping when therapist entered room, looked up at therapist and then put his head back down and closed his eyes. PT stated she was here for therapy and pt refused stating I'm checked out today. Will follow.
--- NOTE | 2022-01-12 12:14 | PM.IMPN ---
Progress Note: A&P Assessment and Plan (1) Anemia: Code(s): D64.9 - Anemia, unspecified Status: Acute Assessment and Plan: Likely secondary to chronic microcytic anemia with iron deficiency. Patient has not been compliant with iron tablets. Will check iron studies, B12/folate. Fecal occult pending. Patient given 1 unit PRBC 01/12: hgb stable after transfusion, iron studies WNL, FOBT negative, unsure of etiology of anemia, folate was slightly low, will supplement, look for hemolytic process, check peripheral smear, retic, LDH, haptoglobin (2) Stercoral colitis: Code(s): K52.89 - Other specified noninfective gastroenteritis and colitis Status: Acute Assessment and Plan: Leukocytosis likely related to stercoral colitis. Patient has had 3 bowel movements since admission. 01/12: Leukocytosis unchanged, will send stool studies for C diff, culture, start Cipro/Flagyl (3) Congestive heart failure: Code(s): I50.9 - Heart failure, unspecified Status: Acute Assessment and Plan: Continue Toprol. Patient is not on any other goal-directed medical therapy. Cannot find any old echo reports to confirm this, appears euvolemic. (4) Coronary artery disease: Code(s): I25.10 - Atherosclerotic heart disease of [place] coronary artery without angina pectoris Status: Acute Assessment and Plan: Aspirin/statin started (5) Hyponatremia: Code(s): E87.1 - Hypo-osmolality and hyponatremia Status: Acute Assessment and Plan: Check urine sodium, urine osmolality, serum osmolality. Fluid restriction 01/12: sodium unchanged, cancel restriction, monitor for now, appears asymptomatic, looks like he is chronically low, not on any home meds that could cause this Plan With folate deficiency, microcytic hypochromic anemia of unknown etiology, chronic hyponatremia, some concern for alcoholism? Will check thiamine level. DVT prophylaxis with SCDs GI prophylaxis with PPI Code status full code Subjective Date/time seen: 01/12/22 12:14 Interval history: Patient extremely hard of hearing. He is very cantankerous and does not want to answer any questions. He asked me to leave several times and stated he wants to go back to sleep. He said he does not care if he ever go summary states here forever. No overnight events noted. No chest pain or shortness of breath. No nausea or vomiting. No fevers or chills. Still with continued foul-smelling diarrhea per nursing staff. Review of Systems Review of Systems: Unable to obtain review of systems secondary to patient's noncompliance Exam Narrative: General: No acute distress, alert and oriented per baseline HEENT: Atraumatic, normocephalic, mucous membranes moist CV: Regular rate and rhythm, S1, S2 Lungs: Clear to auscultation bilaterally, no rales or crackles noted, no wheezes, good air entry Abdomen: Soft, nontender, nondistended Extremities: Normal to inspection Skin: No rashes noted, no lesions or wounds seen Psych: No eye contact, flat affect Objective Data Vital Signs Vital Signs: Vital Signs - 24 hr 01/11/22 15:53 01/11/22 20:00 01/11/22 20:00 Temperature 97.0 F L 97.6 F Pulse Rate 84 51 L Respiratory Rate 20 18 Blood Pressure 96/54 L 107/56 L Pulse Oximetry 96 95 Oxygen Delivery Room Air 01/11/22 23:41 01/12/22 04:00 01/12/22 07:55 Temperature 99.4 F 98.1 F 97.0 F L Pulse Rate 86 73 79 Respiratory Rate 17 18 20 Blood Pressure 109/58 L 113/59 L 112/85 Pulse Oximetry 95 95 95 Oxygen Delivery 01/12/22 08:59 01/12/22 08:00 01/12/22 12:00 Temperature 96.7 F L Pulse Rate 79 76 Respiratory Rate 20 Blood Pressure 108/55 L Pulse Oximetry 95 Oxygen Delivery Room Air Intake/Output Intake/Output: Intake & Output 01/09/22 01/10/22 01/11/22 01/12/22 23:59 23:59 23:59 23:59 Intake Total 950 817 357 Balance 950 817 357 Meds/Results Medications: Acti
[2022-01-12] MEDS: metroNIDAZOLE 500 MG/ISO 100ML 500 MG/100 ML BAG 100 MG IVPB ×2 (17:24→22:10)
[2022-01-12 17:34] LABS: Immature Reticulocyte Fraction 28.3 % (3.0-15.9); Reticulocyte Hemoglobin Conten 22.8 pg (28.2-35.7); Reticulocyte Percent 1.97 % (0.7-4.3); Reticulocytes Absolute 0.08 B/L (32.2-175.7)
[2022-01-12 18:58] LABS: Lactate Dehydrogenase 142 U/L (120-246); Uric Acid 4.3 mg/dL (3.5-8.5)
[2022-01-12] MEDS: CIPROFLOXACIN 400 MG/D5W 200ML 200 ML 200 MG IVPB (21:48)
[2022-01-12 23:20] LABS: Toxigenic C. Diff NEGATIVE (NEGATIVE)
[2022-01-13 05:25] VITALS: BP 129/64; PULSE 92; RESP 17; TEMP 37.1; O2SAT 93
[2022-01-13 06:04] LABS: Hematocrit 26.6 % (42.0-52.0); Hemoglobin 7.2 g/dL (14.0-18.0); Mean Corpuscular HGB Conc 27.1 g/dl (32-36); Mean Corpuscular Hemoglobin 20.5 pg (26-34); Mean Corpuscular Volume 75.6 fl (80-100); Mean Platelet Volume 7.9 fl (7.4-10.4); Platelet Count Result 297 k/mm3 (150-375); Red Blood Count 3.52 M/mm3 (4.6-6.20); Red Cell Distribution Width 22.2 % (11.5-14.5); White Blood Count 11.1 K/mm3 (4.5-10.0)
[2022-01-13] MEDS: metroNIDAZOLE 500 MG/ISO 100ML 500 MG/100 ML BAG 100 MG IVPB ×3 (06:04→20:59)
[2022-01-13 06:25] LABS: Alanine Aminotransferase 8 U/L (6-50); Alkaline Phosphatase 88 U/L (38-126); Anion Gap 9 mmol/L (8-16); Aspartate Amino Transferase 12 U/L (17-59); Bilirubin,Total 0.3 mg/dL (0.2-1.3); Blood Urea Nitrogen 19 mg/dL (9-20); Calcium 7.8 mg/dL (8.4-10.2); Carbon Dioxide 19 mmol/L (22-30); Chloride 100 mmol/L (98-107); Estimated CRCL calculation 64 ml/min; Estimated Glomerular Filt Rate > 60; Glucose 114 mg/dL (65-110); Potassium 3.8 mmol/L (3.4-5.0); Sodium 128 mmol/L (137-145)
[2022-01-13 07:06] LABS: Anisocytosis 1+ (NORMAL); Atypical Lymphocytes Present; Band Neutrophils Percent 1 % (0-6); Eosinophils Absolute Manual 0.22 K/mm3 (0.02-0.5); Eosinophils Percent Manual 2 % (0-4); Monocytes Absolute Manual 0.77 K/mm3 (0.1-0.90); Monocytes Percent Manual 7 % (3-9); Neutrophils Absolute Manual 4.99 K/mm3 (1.3-6.7); Neutrophils Percent Manual 44 % (46-73); Ovalocytes 1+ (NORMAL); Platelet Estimate Adequate (Adequate); Smudge Cells PRESENT; Total Cells Counted 100
--- NOTE | 2022-01-13 08:14 | PCPTNOTE ---
Attempted PT evaluation this date. PT stated she was from therapy and pt looked up at therapist and put his head right back down and said no while shaking his head. Will follow
[2022-01-13] MEDS: CIPROFLOXACIN 400 MG/D5W 200ML 200 ML 200 MG IVPB ×2 (09:12→21:00)
[2022-01-13 09:13] VITALS: PULSE 90
[2022-01-13] MEDS: PANTOPRAZOLE SODIUM IV 40 MG VIAL IV PUSH (09:13)
[2022-01-13] MEDS: METOPROLOL SUCCINATE EXT REL 50 MG TABCR PO (09:13)
[2022-01-13] MEDS: ENOXAPARIN 40 MG/0.4 ML SYRINGE SUB-Q (09:13)
[2022-01-13] MEDS: ATORVASTATIN 40 MG TABLET PO (09:13)
[2022-01-13] MEDS: FOLIC ACID 1 MG TABLET PO (09:13)
[2022-01-13] MEDS: ASPIRIN 81 MG ENTERIC TABLET PO (09:14)
--- NOTE | 2022-01-13 10:39 | PM.IMPN ---
Progress Note: A&P Assessment and Plan (1) Anemia: Code(s): D64.9 - Anemia, unspecified Status: Acute Assessment and Plan: 01/11: Likely secondary to chronic microcytic anemia with iron deficiency. Patient has not been compliant with iron tablets. Will check iron studies, B12/folate. Fecal occult pending. Patient given 1 unit PRBC 01/12: Hgb stable after transfusion, iron studies WNL, FOBT negative, unsure of etiology of anemia, folate was slightly low, will supplement, look for hemolytic process, check peripheral smear, retic, LDH, haptoglobin 01/13: Hemoglobin 7.2 today, down from 8.1 yesterday. Stool studies pending, C diff was negative, fecal occult blood negative, will increase dose of fluid from 1 mg daily to 3 mg daily. GI consult pending. (2) Stercoral colitis: Code(s): K52.89 - Other specified noninfective gastroenteritis and colitis Status: Acute Assessment and Plan: 01/11: Leukocytosis likely related to stercoral colitis. Patient has had 3 bowel movements since admission. 01/12: Leukocytosis unchanged, diarrhea has worsened, concern for infectious etiology in addition to stercoral colitis, will send stool studies for C diff, culture, start Cipro/Flagyl. 01/13: Leukocytosis improved after starting Cipro and Flagyl yesterday, continue antibiotics, follow-up stool studies. (3) Congestive heart failure: Code(s): I50.9 - Heart failure, unspecified Status: Acute Assessment and Plan: Continue Toprol. Patient is not on any other goal-directed medical therapy. Cannot find any old echo reports to confirm this, appears euvolemic. Continue to monitor. (4) Coronary artery disease: Code(s): I25.10 - Atherosclerotic heart disease of [place] coronary artery without angina pectoris Status: Acute Assessment and Plan: Aspirin/statin started (5) Hyponatremia: Code(s): E87.1 - Hypo-osmolality and hyponatremia Status: Acute Assessment and Plan: 01/11: Check urine sodium, urine osmolality, serum osmolality. Fluid restriction. 01/12: Sodium unchanged, cancel restriction, monitor for now, appears asymptomatic, looks like he is chronically low, not on any home meds that could cause this 01/13: Sodium decreased from 131 down to 128 off restriction, unsure of etiology, does appear to have a component of chronicity, could have underlying alcohol abuse, FeNa labs still pending, will trial NS bolus x 1 and recheck BMP later today. Plan 01/12: With folate deficiency, microcytic hypochromic anemia of unknown etiology, chronic hyponatremia, some concern for alcoholism? Will check thiamine level. 01/13: Folate still low, thiamine pending. Will increase folate supplement from 1 mg to 3 mg daily. Iron studies were within normal limits. DVT prophylaxis with SCDs GI prophylaxis with PPI Code status full code Subjective Date/time seen: 01/13/22 10:39 Interval history: Patient again refused to answer any questions, told me to go away so he could sleep. Ignored all further attempts at communication. No overnight events noted, nursing staff state patient continues to have diarrhea, somewhat improved from yesterday. Review of Systems Review of Systems: ROS unobtainable: Yes unobtainable due to mental status Exam Narrative: General: No acute distress, appears to be alert and oriented per baseline, difficult to assess due to patient refusing to answer questions HEENT: Atraumatic, normocephalic, mucous membranes moist CV: Regular rate and rhythm, S1, S2 Lungs: Clear to auscultation bilaterally, no rales or crackles noted, no wheezes, good air entry Abdomen: Soft, nontender, nondistended Extremities: Normal to inspection Skin: No rashes noted, no lesions or wounds seen Psych: No eye contact, flat affect, somewhat hostile but cooperative with exam Objective Data Vital Signs Vital Signs: Vital Signs - 24 hr 01/12/22 12:00 01/12/22 16:00 01/12/22 21:00
--- NOTE | 2022-01-13 12:56 | PCOTNOTE ---
Attempted to see pt for occupational therapy tx. Pt refused to participate in therapy stating leave me alone...I'm comfortable in bed and will figure it out at home. Pt was educated on the benefits and purpose of therapy participation however, pt continued to refuse. Will continue per poc duration/frequency tomorrow.
[2022-01-13 14:00] VITALS: BP 107/62; PULSE 76; RESP 16; TEMP 36.3; O2SAT 96
[2022-01-13 15:29] LABS: Anion Gap 6 mmol/L (8-16); Blood Urea Nitrogen 17 mg/dL (9-20); Calcium 7.9 mg/dL (8.4-10.2); Carbon Dioxide 24 mmol/L (22-30); Chloride 99 mmol/L (98-107); Estimated CRCL calculation 64 ml/min; Estimated Glomerular Filt Rate > 60; Glucose 102 mg/dL (65-110); Sodium 129 mmol/L (137-145)
[2022-01-13] MEDS: FOLIC ACID 1 MG TABLET 3 MG PO (17:20)
[2022-01-13] MEDS: SODIUM CHLORIDE 0.9% IV 1,000 ML 999 ML IV CONT (17:20)
[2022-01-13] MEDS: SODIUM CHLORIDE 0.9% IV 1,000 ML 65 ML IV CONT (20:59)
[2022-01-13 22:00] VITALS: BP 97/68; PULSE 55; RESP 18; TEMP 37; O2SAT 93
[2022-01-14] MEDS: ACETAMINOPHEN 325 MG TABLET PO (01:01)
[2022-01-14] MEDS: metroNIDAZOLE 500 MG/ISO 100ML 500 MG/100 ML BAG 100 MG IVPB ×3 (05:37→21:29)
[2022-01-14 05:59] VITALS: BP 112/65; PULSE 87; RESP 16; TEMP 36.2; O2SAT 96
--- NOTE | 2022-01-14 07:30 | PM.IMPN ---
Progress Note: A&P Assessment and Plan (1) Anemia: Code(s): D64.9 - Anemia, unspecified Status: Acute Assessment and Plan: 01/11: Likely secondary to chronic microcytic anemia with iron deficiency. Patient has not been compliant with iron tablets. Will check iron studies, B12/folate. Fecal occult pending. Patient given 1 unit PRBC 01/12: Hgb stable after transfusion, iron studies WNL, FOBT negative, unsure of etiology of anemia, folate was slightly low, will supplement, look for hemolytic process, check peripheral smear, retic, LDH, haptoglobin 01/13: Hemoglobin 7.2 today, down from 8.1 yesterday. Stool studies pending, C diff was negative, fecal occult blood negative, will increase dose of folate from 1 mg daily to 3 mg daily. GI consult pending. 01/14: GI c/s pending, hgb stable at 7.5 (2) Stercoral colitis: Code(s): K52.89 - Other specified noninfective gastroenteritis and colitis Status: Acute Assessment and Plan: 01/11: Leukocytosis likely related to stercoral colitis. Patient has had 3 bowel movements since admission. 01/12: Leukocytosis unchanged, diarrhea has worsened, concern for infectious etiology in addition to stercoral colitis, will send stool studies for C diff, culture, start Cipro/Flagyl. 01/13: Leukocytosis improved after starting Cipro and Flagyl yesterday, continue antibiotics, follow-up stool studies. 01/14: WBC down to 9.6 (3) Congestive heart failure: Code(s): I50.9 - Heart failure, unspecified Status: Acute Assessment and Plan: Continue Toprol. Patient is not on any other goal-directed medical therapy. Cannot find any old echo reports to confirm this, appears euvolemic. Continue to monitor. (4) Coronary artery disease: Code(s): I25.10 - Atherosclerotic heart disease of [place] coronary artery without angina pectoris Status: Acute Assessment and Plan: Aspirin/statin started (5) Hyponatremia: Code(s): E87.1 - Hypo-osmolality and hyponatremia Status: Acute Assessment and Plan: 01/11: Check urine sodium, urine osmolality, serum osmolality. Fluid restriction. 01/12: Sodium unchanged, cancel restriction, monitor for now, appears asymptomatic, looks like he is chronically low, not on any home meds that could cause this 01/13: Sodium decreased from 131 down to 128 off restriction, unsure of etiology, does appear to have a component of chronicity, could have underlying alcohol abuse, FeNa labs still pending, will trial NS bolus x 1 and recheck BMP later today. 01/14: Sodium unchanged today at 129. (6) Hypokalemia: Code(s): E87.6 - Hypokalemia Status: Acute Assessment and Plan: 01/14: Potassium was 3.3 today, replete and recheck Plan 01/12: With folate deficiency, microcytic hypochromic anemia of unknown etiology, chronic hyponatremia, some concern for alcoholism? Will check thiamine level. 01/13: Folate still low, thiamine pending. Will increase folate supplement from 1 mg to 3 mg daily. Iron studies were within normal limits. DVT prophylaxis with SCDs GI prophylaxis with PPI Code status full code Subjective Date/time seen: 01/14/22 07:30 Interval history: Patient left his headphones on, refused to communicate. Refused to be seen by Physical therapy. Requesting to go home, but caregiver refused to take care of him at home. Care coordination attempting to arrange rehab stay. No overnight events noted. Nursing staff report the diarrhea continues to improve on antibiotics. Review of Systems Review of Systems: ROS unobtainable: Yes unobtainable due to mental status Exam Narrative: General: No acute distress, alert and oriented per baseline HEENT: Atraumatic, normocephalic, mucous membranes moist CV: Regular rate and rhythm, S1, S2 Lungs: Clear to auscultation bilaterally, no rales or crackles noted, no wheezes, good air entry Abdomen: Soft, nontender, nondistended Extremities: Normal to inspec
--- NOTE | 2022-01-14 08:18 | PCPTNOTE ---
Addendum entered by Kassidy Saucedo, PT 01/14/22 12:18: Hospitalist made aware of 3 attempted refusals. Hospitalist agreed to DC of therapy at this time. Original Note: Attempted PT evaluation, pt refused stating non. When attempted to reason with pt, pt stated would you people leave me alone. RN aware. Hospitalist to be contacted this date.
[2022-01-14 08:58] LABS: Hematocrit 27.2 % (42.0-52.0); Hemoglobin 7.5 g/dL (14.0-18.0); Mean Corpuscular HGB Conc 27.6 g/dl (32-36); Mean Corpuscular Hemoglobin 20.7 pg (26-34); Mean Corpuscular Volume 75.1 fl (80-100); Mean Platelet Volume 8.1 fl (7.4-10.4); Platelet Count Result 285 k/mm3 (150-375); Red Blood Count 3.62 M/mm3 (4.6-6.20); Red Cell Distribution Width 22.6 % (11.5-14.5); White Blood Count 9.6 K/mm3 (4.5-10.0)
[2022-01-14 09:22] LABS: Alanine Aminotransferase 7 U/L (6-50); Albumin Level 3.1 g/dL (3.5-5.1); Alkaline Phosphatase 84 U/L (38-126); Anion Gap 10 mmol/L (8-16); Aspartate Amino Transferase 11 U/L (17-59); Bilirubin,Total 0.3 mg/dL (0.2-1.3); Blood Urea Nitrogen 13 mg/dL (9-20); Calcium 7.7 mg/dL (8.4-10.2); Carbon Dioxide 20 mmol/L (22-30); Chloride 99 mmol/L (98-107); Estimated CRCL calculation 64 ml/min; Estimated Glomerular Filt Rate > 60; Glucose 109 mg/dL (65-110); Potassium 3.3 mmol/L (3.4-5.0); Sodium 129 mmol/L (137-145)
[2022-01-14 09:25] LABS: Band Neutrophils Percent 6 % (0-6); Eosinophils Absolute Manual 0.09 K/mm3 (0.02-0.5); Eosinophils Percent Manual 1 % (0-4); Lymphocytes Absolute Manual 4.89 K/mm3 (1.1-4.5); Monocytes Absolute Manual 0.28 K/mm3 (0.1-0.90); Monocytes Percent Manual 3 % (3-9); Myelocytes Percent 1 %; Neutrophils Absolute Manual 4.22 K/mm3 (1.3-6.7); Neutrophils Percent Manual 38 % (46-73); Platelet Estimate Adequate (Adequate); Total Cells Counted 100
[2022-01-14 09:26] LABS: Anisocytosis 2+ (NORMAL); Atypical Lymphocytes Present; Ovalocytes 2+ (NORMAL); Smudge Cells PRESENT
[2022-01-14] MEDS: CIPROFLOXACIN 400 MG/D5W 200ML 200 ML 200 MG IVPB ×2 (09:31→21:28)
[2022-01-14] MEDS: PANTOPRAZOLE SODIUM IV 40 MG VIAL IV PUSH (09:36)
--- NOTE | 2022-01-14 09:55 | PCOTNOTE ---
Attempted to see patient this am, however patient refused. Upon entering, prior to introduction, patient became agitated stating, Fuck! People won't leave me alone! Did not disturb patient further at this time.
[2022-01-14 14:00] VITALS: BP 101/53; PULSE 77; RESP 16; TEMP 36.8; O2SAT 95
--- NOTE | 2022-01-14 15:06 | WPDGICN ---
Assessment and Plan Assessment and plan (1) Symptomatic anemia: Code(s): D64.9 - Anemia, unspecified Status: Acute Assessment and Plan: will proceed with egd to assess if any source if gib he just had a colonoscopy last year and not need to repeat one, if anything probably small bowel capsule endoscopy as outpatient and also hematology consult (2) Coronary artery disease: Code(s): I25.10 - Atherosclerotic heart disease of [place] coronary artery without angina pectoris Status: Acute Assessment and Plan: no active issue (3) General weakness: Code(s): R53.1 - Weakness Status: Acute (4) Stercoral colitis: Code(s): K52.89 - Other specified noninfective gastroenteritis and colitis Status: Acute Assessment and Plan: having bm's, no abdominal pain (5) Hyponatremia: Code(s): E87.1 - Hypo-osmolality and hyponatremia Status: Acute Assessment and Plan: monitor GI Consult Note Consult date/time: 01/14/22 15:06 Reason for consult: acute on cronic anemia HPI: Manpreet Crawley is a 81 year old male with history?of hypertension, CAD s/p CABG about 2 years on aspirin who is hard of hearing and also a poor historian. I met him last year when he presented with symptomatic anemia, egd and colonoscopy without much findings only mild gastritis and small colon polyp removed. He is back with shortness of breath on exertion. blood work showed hemoglobin of 6.9, MCV 72.4, platelet 389.? WBC 14, Sodium of 130, bicarb [address] abdomen/pelvis demonstrating stercoral colitis but he already had BM, no overt gib. Review of Systems Review of Systems: CONSTITUTIONAL: Denies fever, chills, or sweats. EYES: Denies visual changes, redness, or discharge. ENT: Denies rhinorrhea, congestion, sore throat, or otalgia. CARDIOVASCULAR: Denies chest pain, palpitations, or edema. RESPIRATORY: Denies cough or dyspnea. GASTROINTESTINAL: Denies abdominal pain, nausea, vomiting, or diarrhea. GENITOURINARY: Denies dysuria or hematuria. SKIN: Denies rash or itching. MUSCULOSKELETAL: Denies back pain, joint pain, or myalgia. NEUROLOGIC: Denies headache, numbness, or weakness. [facility] Past Medical History Medical History (Updated 01/14/22 @ 15:10 by Ankit Garcia MD) Iron deficiency anemia Symptomatic anemia Family History Family History Sibling Congestive heart failure Sibling Congestive heart failure Father Hypertension Heart disease Mother Hypertension Heart disease Social History Social History Smoking packs per day: 0.5 Smoking cigarettes per day: 10.0 Years smoked: 5 Smoking pack-years: 2.50 Smoking status: Never smoker Tobacco type: cigarettes Alcohol intake: never Substance use: never Substance use type: does not use Spiritual care concerns: No Meds Home Medications and Allergies Home Medications Medication Instructions Recorded Confirmed Type ipratropium 20 mcg-albuterol 100 2 puff inhalation QID 02/01/21 01/10/22 History mcg/actuation mist for inhalation (Combivent Respimat) metoprolol succinate 50 mg 50 mg PO DAILY 02/01/21 01/10/22 History tablet,extended release 24 hr acetaminophen 325 mg capsule 325 mg PO Q4-6H PRN Pain, Mild 01/10/22 01/10/22 History Allergies Allergy/AdvReac Type Severity Reaction Status Date / Time No Known Allergies Allergy Verified 06/06/21 13:31 Vital Signs Vital Signs - 24 hr 01/13/22 22:00 01/14/22 05:59 01/14/22 09:35 Temperature 98.6 F 97.2 F L Pulse Rate 55 L 87 Respiratory Rate 18 16 Blood Pressure 97/68 L 112/65 Pulse Oximetry 93 96 Oxygen Delivery Room Air 01/14/22 14:00 Temperature 98.2 F Pulse Rate 77 Respiratory Rate 16 Blood Pressure 101/53 L Pulse Oximetry 95 Oxygen Delivery Exam Con
[2022-01-14 15:17] VITALS: PULSE 76
[2022-01-14] MEDS: METOPROLOL SUCCINATE EXT REL 50 MG TABCR PO (15:17)
[2022-01-14] MEDS: ATORVASTATIN 40 MG TABLET PO (15:17)
[2022-01-14] MEDS: ASPIRIN 81 MG ENTERIC TABLET PO (15:17)
[2022-01-14] MEDS: FOLIC ACID 1 MG TABLET 3 MG PO (15:17)
[2022-01-14] MEDS: ENOXAPARIN 40 MG/0.4 ML SYRINGE SUB-Q (15:18)
[2022-01-14] MEDS: POTASSIUM CHLORIDE 20 MEQ TABLET 40 MEQ PO (16:16)
[2022-01-14] MEDS: SODIUM CHLORIDE 0.9% IV 1,000 ML 65 ML IV CONT (21:29)
[2022-01-14 21:56] VITALS: BP 105/56; PULSE 87; RESP 18; TEMP 36.9; O2SAT 95
[2022-01-15] VITALS (7 sets, daily range): BP systolic 79–119; BP diastolic 32–78; PULSE 58–78; RESP 17–33; TEMP 36.3–36.8; O2SAT 94–98
[2022-01-15] MEDS: metroNIDAZOLE 500 MG/ISO 100ML 500 MG/100 ML BAG 100 MG IVPB ×2 (05:10→13:07)
[2022-01-15 06:44] LABS: Hematocrit 26.9 % (42.0-52.0); Hemoglobin 7.1 g/dL (14.0-18.0); Mean Corpuscular HGB Conc 26.4 g/dl (32-36); Mean Corpuscular Hemoglobin 20.3 pg (26-34); Mean Corpuscular Volume 77.1 fl (80-100); Mean Platelet Volume 8.1 fl (7.4-10.4); Platelet Count Result 280 k/mm3 (150-375); Red Blood Count 3.49 M/mm3 (4.6-6.20); White Blood Count 8.7 K/mm3 (4.5-10.0)
[2022-01-15 07:29] LABS: Albumin Level 2.8 g/dL (3.5-5.1); Alkaline Phosphatase 77 U/L (38-126); Anion Gap 6 mmol/L (8-16); Aspartate Amino Transferase 15 U/L (17-59); Bilirubin,Total 0.3 mg/dL (0.2-1.3); Blood Urea Nitrogen 8 mg/dL (9-20); Calcium 7.5 mg/dL (8.4-10.2); Carbon Dioxide 23 mmol/L (22-30); Chloride 104 mmol/L (98-107); Estimated CRCL calculation 64 ml/min; Estimated Glomerular Filt Rate > 60; Glucose 96 mg/dL (65-110); Potassium 3.8 mmol/L (3.4-5.0); Sodium 133 mmol/L (137-145)
--- NOTE | 2022-01-15 07:45 | PC.NURSE ---
To GI Lab via [facility].
[2022-01-15 07:59] LABS: Band Neutrophils Percent 8 % (0-6); Eosinophils Absolute Manual 0.08 K/mm3 (0.02-0.5); Eosinophils Percent Manual 1 % (0-4); Lymphocytes Absolute Manual 4.17 K/mm3 (1.1-4.5); Monocytes Absolute Manual 0.08 K/mm3 (0.1-0.90); Monocytes Percent Manual 1 % (3-9); Neutrophils Absolute Manual 4.35 K/mm3 (1.3-6.7); Neutrophils Percent Manual 42 % (46-73); Total Cells Counted 100
[2022-01-15 08:00] LABS: Anisocytosis 2+ (NORMAL); Crenated RBC 1+ (NORMAL); Ovalocytes 1+ (NORMAL); Platelet Estimate Adequate (Adequate); Smudge Cells PRESENT
[2022-01-15] MEDS: LACTATED RINGERS 1,000 ML 150 ML IV CONT (08:02)
--- NOTE | 2022-01-15 08:09 | WPDANESEPPF ---
Anes - Initial Pre Proc Eval Procedure: Operation Date: 01/15/22 09:15 Proposed Procedures p Esophagogastroduodenoscopy - Ankit Garcia MD Date/Time: 01/15/22 08:09 Surgeon: Paulina Guillen DO Pre Op Diagnosis: gen weakness,anemia,colitis,constipation Patient Data Age: 81 Gender: M Height: 1.73 m Weight: 54.5 kg Last Vital Signs Temp 97.3 F L 01/15/22 07:48 Pulse 74 01/15/22 07:48 Resp 18 01/15/22 07:48 BP 119/78 01/15/22 07:48 Pulse Ox 98 01/15/22 07:48 O2 Del Method Room Air 01/15/22 07:48 Allergies Allergy/AdvReac Type Severity Reaction Status Date / Time No Known Allergies Allergy Verified 01/15/22 07:57 Home Medications Medication Instructions Recorded Confirmed Type ipratropium 20 mcg-albuterol 100 2 puff inhalation QID 02/01/21 01/10/22 History mcg/actuation mist for inhalation (Combivent Respimat) metoprolol succinate 50 mg 50 mg PO DAILY 02/01/21 01/10/22 History tablet,extended release 24 hr acetaminophen 325 mg capsule 325 mg PO Q4-6H PRN Pain, Mild 01/10/22 01/10/22 History Laboratory Tests 01/14/22 01/14/22 01/15/22 08:41 08:41 06:20 WBC 9.6 K/mm3 K/mm3 8.7 K/mm3 K/mm3 (4.5-10.0) (4.5-10.0) RBC 3.62 M/mm3 L M/mm3 3.49 M/mm3 L M/mm3 (4.6-6.20) (4.6-6.20) Hgb 7.5 g/dL L g/dL 7.1 g/dL L g/dL (14.0-18.0) (14.0-18.0) Hct 27.2 % L % 26.9 % L % (42.0-52.0) (42.0-52.0) MCV 75.1 fl L fl 77.1 fl L fl (80-100) (80-100) MCH 20.7 pg L pg 20.3 pg L pg (26-34) (26-34) MCHC 27.6 g/dl L g/dl 26.4 g/dl L g/dl (32-36) (32-36) RDW 22.6 % H % 23.0 % H % (11.5-14.5) (11.5-14.5) Plt Count 285 k/mm3 k/mm3 280 k/mm3 k/mm3 (150-375) (150-375) MPV 8.1 fl fl 8.1 fl fl (7.4-10.4) (7.4-10.4) Immature Gran % (Auto) Not Reportable Not Reportable Neut % (Auto) Not Reportable Not Reportable Lymph % (Auto) Not Reportable Not Reportable [place] % (Auto) Not Reportable Not Reportable Eos % (Auto) Not Reportable Not Reportable Baso % (Auto) Not Reportable Not Reportable Lymph # (Auto) Not Reportable Not Reportable [place] # (Auto) Not Reportable Not Reportable Eos # (Auto) Not Reportable Not Reportable Baso # (Auto) Not Reportable Not Reportable Abs Immat Gran (auto) Not Reportable Not Reportable Absolute Neuts (auto) Not Reportable Not Reportable Absolute Nucleated RBC Not Reportable Not Reportable Total Counted 100 100 Neutrophils % (Manual) 38 % L % 42 % L % (46-73) (46-73) Band Neutrophils % 6 % % 8 % H % (0-6) (0-6) Lymphocytes % (Manual) 51.0 % H % 48.0 % H % (18-44) (18-44) Monocytes % (Manual) 3 % % 1 % L % (3-9) (3-9) Eosinophils % (Manual) 1 % % 1 % % (0-4) (0-4) Myelocytes % 1 % % Nucleated RBC % Not Reportable Not Reportable Abs Neuts (Manual) 4.22 K/mm3 K/mm3 4.35 K/mm3 K/mm3 (1.3-6.7) (1.3-6.7) Abs Lymphs (Manual) 4.89 K/mm3 H K/mm3 4.17 K/mm3 K/mm3 (1.1-4.5) (1.1-4.5) Abs Monocytes (Manual) 0.28 K/mm3 K/mm3 0.08 K/mm3 L K/mm3 (0.1-0.90) (0.1-0.90) Absolute Eos (Manual) 0.09 K/mm3 K/mm3 0.08 K/mm3 K/mm3 (0.02-0.5) (0.02-0.5) Atypical Lymphocytes Present Smudge Cells Present Present Platelet Estimate Adequate Adequate (Adequate) (Adequate) Anisocytosis 2+ 2+ (NORMAL) (NORMAL) Ovalocytes 2+ 1+ (NORMAL) (NORMAL) Crenated Cell 1+ (NORMAL) Sodium 129 mmol/L L mmol/L (137-145) Potassium 3.3 mmol/L L mmol/L (3.4-5.0) Chloride 99 mmol/L mmol/L (98-107) Carbon Dioxide 20 mmol/L L mmol/L (22-30) Anion Gap 10 mmol/L mmol/L (8-16) BUN
[2022-01-15 08:19] LABS: Alanine Aminotransferase < 6 U/L (6-50)
--- NOTE | 2022-01-15 09:20 | PC.NURSE ---
Back from GI Lab via stretcher.
[2022-01-15] MEDS: PANTOPRAZOLE SODIUM IV 40 MG VIAL IV PUSH (09:29)
[2022-01-15] MEDS: CIPROFLOXACIN 400 MG/D5W 200ML 200 ML 200 MG IVPB (09:29)
[2022-01-15] MEDS: ASPIRIN 81 MG ENTERIC TABLET PO (09:30)
[2022-01-15] MEDS: ATORVASTATIN 40 MG TABLET PO (09:30)
[2022-01-15] MEDS: FOLIC ACID 1 MG TABLET 3 MG PO (09:30)
[2022-01-15] MEDS: METOPROLOL SUCCINATE EXT REL 50 MG TABCR PO (09:31)
[2022-01-15] MEDS: ENOXAPARIN 40 MG/0.4 ML SYRINGE SUB-Q (09:31)
--- NOTE | 2022-01-15 09:46 | PM.IMPN ---
Progress Note: A&P Assessment and Plan (1) Anemia: Code(s): D64.9 - Anemia, unspecified Status: Acute Assessment and Plan: 01/11: Likely secondary to chronic microcytic anemia with iron deficiency. Patient has not been compliant with iron tablets. Will check iron studies, B12/folate. Fecal occult pending. Patient given 1 unit PRBC 01/12: Hgb stable after transfusion, iron studies WNL, FOBT negative, unsure of etiology of anemia, folate was slightly low, will supplement, look for hemolytic process, check peripheral smear, retic, LDH, haptoglobin 01/13: Hemoglobin 7.2 today, down from 8.1 yesterday. Stool studies pending, C diff was negative, fecal occult blood negative, will increase dose of folate from 1 mg daily to 3 mg daily. GI consult pending. 01/14: GI c/s pending, hgb stable at 7.5 01/15: EGD WNL, rec heme/onc c/s for anemia workup, can be done outpatient (2) Stercoral colitis: Code(s): K52.89 - Other specified noninfective gastroenteritis and colitis Status: Acute Assessment and Plan: 01/11: Leukocytosis likely related to stercoral colitis. Patient has had 3 bowel movements since admission. 01/12: Leukocytosis unchanged, diarrhea has worsened, concern for infectious etiology in addition to stercoral colitis, will send stool studies for C diff, culture, start Cipro/Flagyl. 01/13: Leukocytosis improved after starting Cipro and Flagyl yesterday, continue antibiotics, follow-up stool studies. 01/14: WBC down to 9.6 (3) Congestive heart failure: Code(s): I50.9 - Heart failure, unspecified Status: Acute Assessment and Plan: Continue Toprol. Patient is not on any other goal-directed medical therapy. Cannot find any old echo reports to confirm this, appears euvolemic. Continue to monitor. (4) Coronary artery disease: Code(s): I25.10 - Atherosclerotic heart disease of [place] coronary artery without angina pectoris Status: Acute Assessment and Plan: Aspirin/statin started (5) Hyponatremia: Code(s): E87.1 - Hypo-osmolality and hyponatremia Status: Acute Assessment and Plan: 01/11: Check urine sodium, urine osmolality, serum osmolality. Fluid restriction. 01/12: Sodium unchanged, cancel restriction, monitor for now, appears asymptomatic, looks like he is chronically low, not on any home meds that could cause this 01/13: Sodium decreased from 131 down to 128 off restriction, unsure of etiology, does appear to have a component of chronicity, could have underlying alcohol abuse, FeNa labs still pending, will trial NS bolus x 1 and recheck BMP later today. 01/14: Sodium unchanged today at 129. 01/15: Sodium 133. ok to d/c (6) Hypokalemia: Code(s): E87.6 - Hypokalemia Status: Acute Assessment and Plan: 01/14: Potassium was 3.3 today, replete and recheck Plan 01/12: With folate deficiency, microcytic hypochromic anemia of unknown etiology, chronic hyponatremia, some concern for alcoholism? Will check thiamine level. 01/13: Folate still low, thiamine pending. Will increase folate supplement from 1 mg to 3 mg daily. Iron studies were within normal limits. DVT prophylaxis with SCDs GI prophylaxis with PPI Code status full code Subjective Date/time seen: 01/15/22 09:46 Interval history: Patient left his headphones on, refused to communicate. Refused to be seen by Physical therapy. Requesting to go home, but caregiver refused to take care of him at home. Care coordination attempting to arrange rehab stay. No overnight events noted. Nursing staff report the diarrhea continues to improve on antibiotics. Review of Systems Review of Systems: ROS unobtainable: Yes unobtainable due to mental status Exam Narrative: General: No acute distress, alert and oriented per baseline HEENT: Atraumatic, normocephalic, mucous membranes moist CV: Regular rate and rhythm, S1, S2 Lungs: Clear to auscultation bilaterally, no rales or crackle
--- NOTE | 2022-01-15 09:49 | PM.DS ---
DS: Admitting Diagnosis Discharge Date January 15, 2022 Admitting Diagnosis Shortness of breath DS: Discharge Diagnosis Discharge Diagnosis (1) Anemia: Code(s): D64.9 - Anemia, unspecified Status: Acute Assessment and Plan: 01/11: Likely secondary to chronic microcytic anemia with iron deficiency. Patient has not been compliant with iron tablets. Will check iron studies, B12/folate. Fecal occult pending. Patient given 1 unit PRBC 01/12: Hgb stable after transfusion, iron studies WNL, FOBT negative, unsure of etiology of anemia, folate was slightly low, will supplement, look for hemolytic process, check peripheral smear, retic, LDH, haptoglobin 01/13: Hemoglobin 7.2 today, down from 8.1 yesterday. Stool studies pending, C diff was negative, fecal occult blood negative, will increase dose of folate from 1 mg daily to 3 mg daily. GI consult pending. 01/14: GI c/s pending, hgb stable at 7.5 01/15: EGD WNL, rec heme/onc c/s for anemia workup, can be done outpatient (2) Stercoral colitis: Code(s): K52.89 - Other specified noninfective gastroenteritis and colitis Status: Acute Assessment and Plan: 01/11: Leukocytosis likely related to stercoral colitis. Patient has had 3 bowel movements since admission. 01/12: Leukocytosis unchanged, diarrhea has worsened, concern for infectious etiology in addition to stercoral colitis, will send stool studies for C diff, culture, start Cipro/Flagyl. 01/13: Leukocytosis improved after starting Cipro and Flagyl yesterday, continue antibiotics, follow-up stool studies. 01/14: WBC down to 9.6 (3) Congestive heart failure: Code(s): I50.9 - Heart failure, unspecified Status: Acute Assessment and Plan: Continue Toprol. Patient is not on any other goal-directed medical therapy. Cannot find any old echo reports to confirm this, appears euvolemic. Continue to monitor. (4) Coronary artery disease: Code(s): I25.10 - Atherosclerotic heart disease of [place] coronary artery without angina pectoris Status: Acute Assessment and Plan: Aspirin/statin started (5) Hyponatremia: Code(s): E87.1 - Hypo-osmolality and hyponatremia Status: Acute Assessment and Plan: 01/11: Check urine sodium, urine osmolality, serum osmolality. Fluid restriction. 01/12: Sodium unchanged, cancel restriction, monitor for now, appears asymptomatic, looks like he is chronically low, not on any home meds that could cause this 01/13: Sodium decreased from 131 down to 128 off restriction, unsure of etiology, does appear to have a component of chronicity, could have underlying alcohol abuse, FeNa labs still pending, will trial NS bolus x 1 and recheck BMP later today. 01/14: Sodium unchanged today at 129. 01/15: Sodium 133. ok to d/c (6) Hypokalemia: Code(s): E87.6 - Hypokalemia Status: Acute Assessment and Plan: 01/14: Potassium was 3.3 today, replete and recheck Plan 01/12: With folate deficiency, microcytic hypochromic anemia of unknown etiology, chronic hyponatremia, some concern for alcoholism? Will check thiamine level. 01/13: Folate still low, thiamine pending. Will increase folate supplement from 1 mg to 3 mg daily. Iron studies were within normal limits. DVT prophylaxis with SCDs GI prophylaxis with PPI Code status full code DS: Summary Hospital Course Hospital Course: 81-year-old male past medical history of CAD status post CABG, heart failure with reduced ejection fraction (01/2021 TTE LVEF 45%), HTN, iron deficiency anemia.? Presents with shortness of breath.? Patient reports some nausea that is now resolved, however no vomiting.? Denied abdominal pain, diarrhea/constipation.? In ED, vitals stable.? Lab workup remarkable for hemoglobin of 6.9, MCV 72.4, platelet 389.? WBC 14, patient is afebrile.? Sodium of 130, bicarb 19 without anion gap.? CT abdomen/pelvis demonstrating stercoral colitis.? Chest x-ray demonstrates nodular opacity
[2022-01-15 13:10] LABS: EDCOVIDSCREEN Negative (Negative)
[2022-01-15 23:36] LABS: Haptoglobin 217 mg/dL (43-212)
[2022-01-17 17:06] LABS: Norovirus RNA PCR, Stool NOT DETECTED
== END 2022-01-15 16:55 | DRG 812 ==
LOC: ANHED 18:02 → ANH3MEDSUR 20:44
PROVIDERS: Internal Medicine; Internal Medicine Gastroenterology; Admitting Provider Student in an Organized Health Care Education/Training Program; Emergency Provider Emergency Medicine; PCP Family Medicine Adolescent Medicine; Visit Provider Student in an Organized Health Care Education/Training Program
PROC: 0DJ08ZZ Inspection of Upper Intestinal Tract, Via Natural or Artificial Opening Endoscopic (ICD-10-PCS; CPT 43235; principal; 2022-01-15 09:15)
DX: D50.9 Iron deficiency anemia, unspecified (principal); E87.1 Hypo-osmolality and hyponatremia; I50.22 Chronic systolic (congestive) heart failure; I11.0 Hypertensive heart disease with heart failure; K52.89 Other specified noninfective gastroenteritis and colitis; I25.10 Atherosclerotic heart disease of native coronary artery without angina pectoris; R53.1 Weakness; E87.6 Hypokalemia; Z20.822 Contact with and (suspected) exposure to COVID-19; Z91.19 Patient's noncompliance with other medical treatment and regimen; Z79.899 Other long term (current) drug therapy; Z87.891 Personal history of nicotine dependence; Z95.1 Presence of aortocoronary bypass graft
CPT/HCPCS: 36415; 36430; 71046; 74177; 80048; 80053; 82274; 82607; 82728; 82746; 83010; 83540; 83550; 83605; 83615; 83930; 84425; 84443; 84550; 85025; 85046; 86140; 86850; 86900; 86901; 86920; 87269; 87272; 87426; 87493; 87798; 88305; 93005; 96360; 96361; 96365; 96366; 96367; 96372; 96375; 97165; 99285; A9270; C9113; C9803; G0378; J0744; J1650; J2001; J2704; J7030; J7050; J7120; P9016; Q9967; U0003; U0005

== ENCOUNTER 2022-02-05 16:09 | Emergency (ER) | payer MEDICARE, MEDICAID, SELFPAY ==
[2022-02-05 16:08] VITALS: BP 119/71; PULSE 80; RESP 20; TEMP 36.4; O2SAT 99
--- NOTE | 2022-02-05 17:18 | ED.GENADULT ---
HPI - General Adult General Chief complaint: Unspecified Stated complaint: refusing to take meds or eat Time Seen by Provider: 02/05/22 16:32 History of Present Illness HPI narrative: 81-year-old male presents to the emergency room via EMS from a [facility] in [place] because according to staff patient was refusing to eat. Patient has been requesting to have a personal MANAGER HOUSE take care of him, and was told at the facility that that would not be possible. Patient then said that he refused to eat and is requesting transportation to the emergency room. Presently patient does not have any medical complaints. Clinical care coordination was at the bedside and explained to the patient that he was not can to be able to have a private MANAGER HOUSE, so he is requesting to be transferred back to the facility. Related Data Home Medications Medication Instructions Recorded Confirmed ipratropium 20 mcg-albuterol 100 2 puff inhalation QID 02/01/21 01/31/22 mcg/actuation mist for inhalation (Combivent Respimat) metoprolol succinate 50 mg 50 mg PO DAILY 02/01/21 01/31/22 tablet,extended release 24 hr acetaminophen 325 mg capsule 325 mg PO Q4-6H PRN Pain, Mild 01/10/22 01/31/22 Allergies Allergy/AdvReac Type Severity Reaction Status Date / Time No Known Allergies Allergy Verified 01/31/22 14:03 Review of Systems Review of Systems: CONSTITUTIONAL: Denies fever, chills, or sweats. EYES: Denies visual changes, redness, or discharge. ENT: Denies rhinorrhea, congestion, sore throat, or otalgia. CARDIOVASCULAR: Denies chest pain, palpitations, or edema. RESPIRATORY: Denies cough or dyspnea. GASTROINTESTINAL: Denies abdominal pain, nausea, vomiting, or diarrhea. GENITOURINARY: Denies dysuria or hematuria. SKIN: Denies rash or itching. MUSCULOSKELETAL: Denies back pain, joint pain, or myalgia. NEUROLOGIC: Denies headache, numbness, dizziness, or weakness. PSYCHIATRIC: Denies anxiety or depression. [facility] Past Medical History Medical History Iron deficiency anemia Symptomatic anemia Family History Family History Sibling Congestive heart failure Sibling Congestive heart failure Father Hypertension Heart disease Mother Hypertension Heart disease Social History Social History Smoking packs per day: 0.5 Smoking cigarettes per day: 10.0 Years smoked: 5 Smoking pack-years: 2.50 Smoking status: Never smoker Tobacco type: cigarettes Alcohol intake: never Substance use: never Substance use type: does not use Spiritual care concerns: No Exam Narrative: GENERAL: no acute distress. HEAD: Normocephalic, atraumatic. EYES: Conjunctivae normal, PERRLA and EOMI. NECK: Supple. CHEST: Clear to auscultation. No respiratory distress. No wheezes rales or rhonchi. No tenderness. HEART: Regular rate and rhythm. No murmur heard. Normal peripheral pulses. ABDOMEN: Soft, nontender, nondistended, normal active bowel sounds. EXTREMITIES: Normal range of motion. No edema. No clubbing or cyanosis SKIN: Warm, dry, no rash. No noted wounds NEURO: No focal deficits. Alert and oriented x3. MAEW. PSYCH: Cooperative. Normal mood and affect. Course Vital Signs Vital signs: Vital Signs Temperature 36.4 C 02/05/22 16:08 Pulse Rate 80 02/05/22 16:08 Respiratory Rate 20 02/05/22 16:08 Blood Pressure 119/71 02/05/22 16:08 Pulse Oximetry 99 02/05/22 16:08 Temperature 36.4 C 02/05/22 16:08 Pulse Rate 80 02/05/22 16:08 Respiratory Rate 20 02/05/22 16:08 Blood Pressure 119/71 02/05/22 16:08 Pulse Oximetry 99 02/05/22 16:08 Medical Decision Making Vital Signs Vital Signs: Vital Signs Temperature 36.4 C 02/05/22 16:08 Pulse Rate 80 02/05/22 16:08 Respiratory Rate 20 02/05/22 16:08 Blood P
--- NOTE | 2022-02-05 17:23 | PCCCNOTE ---
Met with patient bedside, patient is alert and oriented x 4, currently resides at [facility], . patient states that he wanted to be brought to the hospital so that we would send him home. patient stated that he would discharge back to his apartment in [facility] in [place] and one of his techs from [facility] would take 24/ care of him. unfortunately we were unable to reach this tech.. CC called his point of contact from previous admission, Katie. Katie stated that she is unable to care for patient, and he no longer has his apartment. patient agreed. patient is agreeable to returning to [facility]. the plan is to dc back to [facility]. CC will continue to follow for any other needs that may arise.
== END 2022-02-05 19:34 ==
PROVIDERS: Emergency Provider Nurse Practitioner Family; PCP Internal Medicine
DX: Z00.00 Encounter for general adult medical examination without abnormal findings (principal); Z79.82 Long term (current) use of aspirin; Z79.51 Long term (current) use of inhaled steroids
CPT/HCPCS: 99281

== ENCOUNTER 2022-09-06 21:56 | Inpatient (IN) | payer OTHER, SELFPAY ==
--- NOTE | ~2022-09-06 | XR_ITS ---
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 There is a side plate and screws transfixing the proximal tibia. 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 There is a residual screw fragment along the medial femoral condyle, unchanged from prior study. No significant joint effusion. No significant interval change from prior study. Impression: 1: No acute bone or joint abnormality. No significant interval change. Reviewed, dictated and finalized at location A. Impression: 1: No acute bone or joint abnormality. No significant interval change.
--- NOTE | ~2022-09-06 | XR_ITS ---
XR knee LT 3V 09/09/2022 17:47 Indication: Foreign body Procedure: 3 views left knee Comparison: No prior studies for comparison. Findings: There is an intramedullary africa in the distal aspect of the femur with distal interlocking s crew. There is a residual fragment of a screw in the medial femoral condyle. There is side plate and screws transfixing the proximal tibia with at least one of the screws extending outside of the tibia into the medial soft tissues moderate osteoarthritis of the knee. Osteopenia. No acute fracture.. Impression: 1: Status post internal fixation of the distal femur and proximal tibia with residual screw fragment in the medial femoral condyle. 2: No acute fracture. Reviewed, dictated and finalized at location A. Impression: 1: Status post internal fixation of the distal femur and proximal tibia with re sidual screw fragment in the medial femoral condyle. 2: No acute fracture.
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
[2022-09-06 21:53] VITALS: BP 126/84; PULSE 77; RESP 24; TEMP 36.9; O2SAT 93
--- NOTE | 2022-09-06 22:00 | ECG_ITS ---
Measurements Intervals [place] Rate: 73 P: 72 MO: 219 QRS: 3 QRSD: 113 T: 80 QT: 385 QTc: 425 Interpretive Statements SINUS RHYTHM WITH FIRST DEGREE AV BLOCK WITH OCCASIONAL SUPRAVENTRICULAR PREMATURE COMPLEXES LOW QRS VOLTAGE IN EXTREMITY LEADS [QRS DEFLECTION < 0.5 mV IN LIMB LEADS] MODERATE INTRAVENTRICULAR CONDUCTION DELAY [110+ ms QRS DURATION] COMPARED TO ECG 01/10/2022 11:22:19 NO SIGNIFICANT CHANGE Electronically Signed On 09-07-2022 22:11:56 CDT by Sharri North M.D.
[2022-09-06 22:33] LABS: Hematocrit 28.3 % (42.0-52.0); Mean Corpuscular HGB Conc 28.3 g/dl (32-36); Mean Corpuscular Hemoglobin 21.7 pg (26-34); Mean Corpuscular Volume 76.9 fl (80-100); Mean Platelet Volume 8.1 fl (7.4-10.4); Platelet Count Result 260 k/mm3 (150-375); Red Blood Count 3.68 M/mm3 (4.6-6.20); Red Cell Distribution Width 19.1 % (11.5-14.5); White Blood Count 13.4 K/mm3 (4.5-10.0)
[2022-09-06 22:51] LABS: Alanine Aminotransferase 10 U/L (6-50); Albumin Level 3.4 g/dL (3.5-5.1); Alkaline Phosphatase 124 U/L (38-126); Anion Gap 9 mmol/L (8-16); Aspartate Amino Transferase 17 U/L (17-59); Bilirubin,Total 0.5 mg/dL (0.2-1.3); Blood Urea Nitrogen 17 mg/dL (9-20); Calcium 8.3 mg/dL (8.4-10.2); Carbon Dioxide 24 mmol/L (22-30); Chloride 94 mmol/L (98-107); Estimated CRCL calculation 63 ml/min; Estimated Glomerular Filt Rate > 60; Glucose 130 mg/dL (65-110); Potassium 4.2 mmol/L (3.4-5.0); Sodium 127 mmol/L (137-145)
[2022-09-06] MEDS: ONDANSETRON INJ 4 MG/2 ML VIAL IV PUSH (23:14)
[2022-09-06] MEDS: SODIUM CHLORIDE 0.9% IV 1,000 ML 999 ML IV CONT (23:14)
[2022-09-06 23:17] LABS: Band Neutrophils Percent 20 % (0-6); Eosinophils Absolute Manual 0.13 K/mm3 (0.02-0.5); Eosinophils Percent Manual 1 % (0-4); Lymphocytes Absolute Manual 4.28 K/mm3 (1.1-4.5); Monocytes Absolute Manual 0.53 K/mm3 (0.1-0.90); Monocytes Percent Manual 4 % (3-9); Neutrophils Absolute Manual 8.44 K/mm3 (1.3-6.7); Neutrophils Percent Manual 43 % (46-73); Platelet Estimate Adequate (Adequate); Total Cells Counted 100
[2022-09-06 23:18] LABS: Anisocytosis 1+ (NORMAL); Ovalocytes 1+ (NORMAL); Poikilocytosis 2+ (NORMAL); Schistocytes None Seen (NORMAL); Smudge Cells PRESENT; Target Cells 1+ (NORMAL)
[2022-09-06 23:19] LABS: Burr Cells 1+ (NORMAL); Hypochromasia 2+ (NORMAL)
[2022-09-06 23:31] LABS: Creatine Kinase < 20 U/L (55-170); Lactic Acid Reflex 1.5 mmol/L (0.7-2.0); Lipase 18 U/L (23-300); Magnesium 1.7 mg/dL (1.6-2.3)
[2022-09-06 23:42] LABS: Troponin I < 0.012 ng/mL (0.000-0.034)
[2022-09-07] VITALS (10 sets, daily range): BP systolic 94–118; BP diastolic 40–67; PULSE 58–100; RESP 17–18; TEMP 36.2–36.7; O2SAT 91–100; BMI 23.2
[2022-09-07] MEDS: MAGNESIUM SULF 2 GM/WATER 50ML 2 GM/50 ML BAG IVPB (01:06)
--- NOTE | 2022-09-07 02:16 | PC.NURSE ---
Atempted to stand/ambulate patient at this time. Patient refuses and states , I cant walk . My legs don't work .
--- NOTE | 2022-09-07 02:21 | ED.GENADULT ---
HPI - General Adult General Chief complaint: Unspecified Stated complaint: EMESIS, UNABLE TO CARE FOR SELF Time Seen by Provider: 09/06/22 22:36 History of Present Illness HPI narrative: Patient 81-year-old gentleman who presents the emergency department with chief complaint of generalized weakness and episode of vomiting. Per EMS the patient lives at a independent senior apartment and they responded to a life alert call the patient was found sitting at home after he had vomited a found the TV on full blast for audio and a space heater turned up extremely high in the apartment. The patient was extremely emaciated and EMS was concerned for the patient's safety and independence situation Related Data Allergies Allergy/AdvReac Type Severity Reaction Status Date / Time No Known Allergies Allergy Verified 05/07/22 13:35 Review of Systems Review of Systems: A 10 system review of systems was completed on the patient and is negative except for what is stated in the HPI. Nursing and ancillary documentation was reviewed. [facility] Past Medical History Medical History Iron deficiency anemia Symptomatic anemia UTI (urinary tract infection) Family History Family History Sibling Congestive heart failure Sibling Congestive heart failure Father Hypertension Heart disease Mother Hypertension Heart disease Social History Social History Smoking packs per day: 0.5 Smoking cigarettes per day: 10.0 Years smoked: 5 Smoking pack-years: 2.50 Smoking status: Never smoker Tobacco type: cigarettes Alcohol intake: never Substance use: never Substance use type: does not use Spiritual care concerns: No Exam Narrative: GENERAL: Thin emaciated dry mucous membranes. HEAD: Normocephalic, atraumatic. EYES: PERRLA and EOMI. ENT: Nares clear, no rhinorrhea or epistaxis. Dry membranes moist. NECK: Supple. CHEST: Clear to auscultation. No respiratory distress. HEART: Regular rate and rhythm. No murmur heard. Normal peripheral pulses. ABDOMEN: Soft, nontender, nondistended, normal active bowel sounds. EXTREMITIES: Normal range of motion. No edema. SKIN: Warm, dry, no rash. NEURO: No focal deficits. Alert and oriented x3. Extremely hard of hearing PSYCH: Normal mood and affect. Course Vital Signs Vital signs: Vital Signs Temperature 36.9 C 09/06/22 21:53 Pulse Rate 77 09/06/22 21:53 Respiratory Rate 24 H 09/06/22 21:53 Blood Pressure 126/84 09/06/22 21:53 Pulse Oximetry 93 09/06/22 21:53 Oxygen Delivery Room Air 09/06/22 21:53 Temperature 36.9 C 09/06/22 21:53 Pulse Rate 75 09/07/22 02:05 Respiratory Rate 18 09/07/22 02:05 Blood Pressure 118/60 09/07/22 02:05 Pulse Oximetry 94 09/07/22 01:00 Oxygen Delivery Room Air 09/06/22 21:53 Medical Decision Making MDM Narrative Medical decision making narrative: Differential diagnosis includes failure to thrive, generalized weakness, electrolyte abnormality, dehydration, rhabdomyolysis, ACS, UTI Laboratory studies were obtained on the patient which showed a white count of 13.4 hemoglobin was 8.0 this was compared to his previous hemoglobins which appears to be unchanged. Electrolytes were obtained which showed a sodium of 127 this is lower than the patient's normal sodium. BUN and creatinine showed a BUN of 17 and a creatinine of 0.5 lactic acid was 1.5 calcium was 8.3 CPK total was less than 20 and troponin was less than 0.012. Lipase was 18 liver enzymes were normal. Chest x-ray showed no focal infiltrate when interpreted by the radiologist Patient shows no focal neurological deficit at this time but does show to his generalized weakness. An attempt was made to obtain urine from the patient the patient is currently refusing straight c
--- NOTE | 2022-09-07 03:49 | PC.NURSE ---
Call placed to daughter Eyad who stated that she does not have much information, that her father does not communicate with her. Eyad stated that it was ok to call her for questions or concerns but that she does not know much about his medical history.
--- NOTE | 2022-09-07 03:53 | ADMGEN ---
This patient, Manpreet Crawley, was admitted to Medical Room 248-. Patient/family oriented to hospital policies and general routines including ID bracelet, bed and alarms, visiting hours, pain management, procedures, bathroom and other care routines, personal items, smoking policy, room service/diet, and visiting hours. Information on how to activate the Rapid Response Team has been discussed. Patient/Family are encouraged to report perceived risks to care and to ask questions if they do not understand what they are told or what they should do.
--- NOTE | 2022-09-07 04:33 | PC.NURSE ---
This nurse attempted to do an admission assessment on the patient. Patient was very uncooperative and verbalized several times he didn't want us in the room. Assessment charted is what I witnessed without involving patient too much. Will attempt to get better assessment done once patient has had some rest.
[2022-09-07 05:05] LABS: Appearance Urine Clear (Clear); Bacteria Urine None Seen /hpf; Bilirubin Urine Negative (Negative); Blood Urine Negative (Negative); Color Urine Yellow (Yellow); Glucose Urine UA Negative (Negative); Ketones Urine Negative (Negative); Leukocyte Esterase Ur Trace LEU/UL (NEGATIVE); Nitrate Urine Negative (Negative); Non Pathogenic Casts 0-2; Protein Urine Negative (Negative); RBC Urine 0-2 /hpf (0-2); Specific Grav Ur 1.009 (1.001-1.035); Squamous Epithelial Cell Urine None seen /hpf (Few); WBC Urine 0-5 /hpf (0-3); pH Urine 5.5 (5.0-9.0)
[2022-09-07 05:17] LABS: Add Urine Microscopic? YES
--- NOTE | 2022-09-07 05:41 | PM.IMHP ---
H&P: HPI History of Present Illness Date/Time: 09/07/22 05:41 Chief Complaint: Generalized weakness Narrative: Patient 81-year-old gentleman who presents the emergency department with chief complaint of generalized weakness and episode of vomiting.? Per EMS the patient lives at a independent senior apartment and they responded to a life alert call the patient was found sitting at home after he had vomited a found the TV on full blast for audio and a space heater turned up extremely high in the apartment.? The patient was extremely emaciated and EMS was concerned for the patient's safety and independence situation ER workup showed the patient has severe hyponatremia. Patient also history of chronic anemia. Patient was admitted for further evaluation treatment. Review of Systems Review of Systems: All systems reviewed & are unremarkable except as noted in HPI and below (the history and physical examination.) [facility] Past Medical History Medical History Iron deficiency anemia Symptomatic anemia UTI (urinary tract infection) Family History Family History Sibling Congestive heart failure Sibling Congestive heart failure Father Hypertension Heart disease Mother Hypertension Heart disease Social History Social History Smoking packs per day: 0.5 Smoking cigarettes per day: 10.0 Years smoked: 5 Smoking pack-years: 2.50 Smoking status: Never smoker Tobacco type: cigarettes Alcohol intake: never Substance use: never Substance use type: does not use Spiritual care concerns: No Meds Home Medications and Allergies Home Medications Medication Instructions Recorded Confirmed Type aspirin 81 mg tablet,delayed 81 mg PO QAM 1 month #30 tabs 01/15/22 05/07/22 Rx release metoprolol succinate 50 mg 50 mg PO DAILY 09/07/22 09/07/22 History tablet,extended release 24 hr Allergies Allergy/AdvReac Type Severity Reaction Status Date / Time No Known Allergies Allergy Verified 05/07/22 13:35 Vital Signs Vital Signs - 24 hr 09/06/22 21:53 09/07/22 02:05 09/07/22 01:00 Temperature 36.9 C Pulse Rate 77 75 75 Respiratory Rate 24 H 18 17 Blood Pressure 126/84 118/60 108/44 L Pulse Oximetry 93 94 Oxygen Delivery Room Air 09/07/22 00:05 09/07/22 02:59 09/07/22 03:30 Temperature 36.2 C L Pulse Rate 68 58 L 100 Respiratory Rate 18 17 18 Blood Pressure 104/62 100/50 L 95/40 L Pulse Oximetry 94 95 99 Oxygen Delivery Exam Narrative: GENERAL: Thin emaciated dry mucous membranes. HEAD: Normocephalic, atraumatic. EYES: PERRLA and EOMI. ENT: Nares clear, no rhinorrhea or epistaxis.? Dry membranes moist. NECK: Supple. CHEST: Clear to auscultation.? No respiratory distress. HEART: Regular rate and rhythm.? No murmur heard.? Normal peripheral pulses. ABDOMEN: Soft, nontender, nondistended, normal active bowel sounds. EXTREMITIES: Normal range of motion.? No edema. SKIN: Warm, dry, no rash. NEURO: No focal deficits.? Alert and oriented x3.? Extremely hard of hearing PSYCH: Normal mood and affect. H&P: Results Labs Labs: Short CBC 09/06/22 Range/Units 22:26 WBC 13.4 H (4.5-10.0) K/mm3 Hgb 8.0 L (14.0-18.0) g/dL Hct 28.3 L (42.0-52.0) % Plt Count 260 (150-375) k/mm3 BMP 09/06/22 22:26 Sodium 127 L Potassium 4.2 Chloride 94 L Carbon Dioxide 24 BUN 17 Creatinine 0.50 L Glucose 130 H Calcium 8.3 L Cardiac Enzymes 09/06/22 Range/Units 23:14 Total Creatine Kinase < 20 L (55-170) U/L Troponin I < 0.012 (0.000-0.034) ng/mL Liver Function 09/06/22 Range/Units 22:26 Total Bilirubin 0.5 (0.2-1.3) mg/dL AST 17 (17-59) U/L ALT 10 (6-50) U/L Alkaline Phosphatase 124 (38-126) U/L Albumin 3.4 L (3.5-5.1) g/dL Urine 09/07/22 Range/Units
[2022-09-07] MEDS: SODIUM CHLORIDE 0.9% IV 1,000 ML 83 ML IV CONT ×2 (06:34→18:21)
--- NOTE | 2022-09-07 08:37 | PCOTNOTE ---
Attempted OT evaluation; pt. refused stating Not now! . Will attempt again as able
[2022-09-07] MEDS: ENOXAPARIN 40 MG/0.4 ML SYRINGE SUB-Q (09:08)
--- NOTE | 2022-09-07 10:15 | PCPTNOTE ---
Patient sleeping and does not want to do the evaluation now, will try again later
--- NOTE | 2022-09-07 11:42 | PCOTNOTE ---
Attempted OT evaluation again pt. refused. Will attempt tomorrow as able
--- NOTE | 2022-09-07 14:00 | PM.IMPN ---
Progress Note: A&P Assessment and Plan (1) Acute hyponatremia: Code(s): E87.1 - Hypo-osmolality and hyponatremia Status: Acute Assessment and Plan: Na 127 on admission. Possibly related to poor oral intake. He was started on IV fluids. Repeat Na. (2) Generalized weakness: Code(s): R53.1 - Weakness Status: Acute Assessment and Plan: Patient was brought in after episode of emesis and GNW. Bandemia noted with elevated WBC. He is anemic but appears chronic for him. Having trouble eating due to no dentures. Start PT/OT. Change diet to regular with minced and moist. ST to evaluate as well. Will need to discus with family about next steps. Care coordination consult. (3) History of anemia of chronic disease: Code(s): Z86.2 - Personal history of diseases of the blood and blood-forming organs and certain disorders involving the immune mechanism Status: Acute Assessment and Plan: Hgb low but stable. Will check B12, folate and iron studies. Continue with iron and monitor closely. (4) Elevated WBC count: Code(s): D72.829 - Elevated white blood cell count, unspecified Status: Acute Assessment and Plan: WBC 13K with bandemia. UA clear. CXR clear. Elevated WBC could be related to stress response. Will stop abx. Repeat CBC. Plan Patient is full code. Patient is admitted for observation. DVT prophylaxis with Lovenox. Subjective Date/time seen: 09/07/22 14:00 Interval history: 81yo male here for weakness. Patient denies any chest pain. No abdominal pain or back pain. He denies cough or shortness of breath. He is requesting discharge home. Exam Narrative: AF 97.1 95/40 80 18 99%ra Gen - thin male in NARD Chest - CTA bilaterally, nml RR CV - RRR S1/S2 Abd - Soft, NT/ND, Positive BS Ext - No pedal edema Neuro - [place], no focal weakness Psych - unhappy mood, poor eye contact Skin - Warm and dry Objective Data Vital Signs Vital Signs: Vital Signs - 24 hr 09/06/22 21:53 09/07/22 02:05 09/07/22 01:00 Temperature 98.4 F Pulse Rate 77 75 75 Respiratory Rate 24 H 18 17 Blood Pressure 126/84 118/60 108/44 L Pulse Oximetry 93 94 Oxygen Delivery Room Air 09/07/22 00:05 09/07/22 02:59 09/07/22 03:30 Temperature 97.1 F L Pulse Rate 68 58 L 100 Respiratory Rate 18 17 18 Blood Pressure 104/62 100/50 L 95/40 L Pulse Oximetry 94 95 99 Oxygen Delivery 09/07/22 09:20 09/07/22 09:08 Temperature Pulse Rate 80 80 Respiratory Rate 18 Blood Pressure Pulse Oximetry 99 Oxygen Delivery Room Air Intake/Output Intake/Output: Intake & Output 09/04/22 09/05/22 09/06/22 09/07/22 23:59 23:59 23:59 23:59 Intake Total 1410 Output Total 300 Balance 1110 Meds/Results Medications: Active Medications Generic Name Dose Route Start Last Admin Trade Name Freq PRN Reason Stop Dose Admin Enoxaparin Sodium 40 mg 09/07/22 09:00 09/07/22 09:08 Enoxaparin 40 Mg/0.4 Ml Syringe SUB-Q 40 mg DAILY [facility] Administration Sodium Chloride 1,000 mls @ 83 mls/hr 09/07/22 02:55 09/07/22 12:38 Normal Saline Iv IV CONT 83 mls/hr .Q12H3M [facility] Infusion Metoprolol Succinate 50 mg 09/07/22 09:00 09/07/22 09:20 Metoprolol Succinate Ext Rel 50 Mg Tabcr PO Not Given DAILY [facility] Ondansetron HCl 4 mg 09/07/22 02:53 Ondansetron Inj 4 Mg/2 Ml Vial IV PUSH Q4H PRN Nausea Pantoprazole Sodium 40 mg 09/07/22 09:00 09/07/22 09:20 Pantoprazole 40 Mg Tablet PO Not Given QAM [facility] Polysaccharide Iron Complex 150 mg 09/07/22 08:00 09/07/22 09:19 Polysaccharide Iron Complex 150 Mg Capsule PO Not Given DAILY@0800 [facility] Radiology Results: ITS Impressions Chest X-Ray 09/06/22 22:52 IMPRESSION: 1. No acute cardiopulmonary abnormality. Labs Labs: Laboratory Results - last 24 hr 09/06/22 09/06/22 09/06/22 22:26 22:26 23:14 WBC 13.4 H RBC 3.68 L
[2022-09-07 15:32] LABS: Basophils Percent Auto 0.4 % (0.2-1.2); Eosinophils Percent Auto 0.4 % (0-4.4); Hematocrit 28.6 % (42.0-52.0); Hemoglobin 7.8 g/dL (14.0-18.0); Immature Granulocyte Absolute 0.02 K/mm3 (0.00-0.031); Immature Granulocyte Percent A 0.2 % (0-0.5); Lymphocytes Absolute Auto 5.09 K/mm3 (0.9-3.2); Lymphocytes Percent Auto 56.9 % (18.3-44.2); Mean Corpuscular HGB Conc 27.3 g/dl (32-36); Mean Corpuscular Hemoglobin 22.1 pg (26-34); Mean Platelet Volume 8.6 fl (7.4-10.4); Monocytes Absolute Auto 0.3 K/mm3 (0.1-0.6); Neutrophils Absolute Auto 3.5 K/mm3 (1.3-6.7); Neutrophils Percent Auto 39.1 % (45.5-73.1); Platelet Count Result 231 k/mm3 (150-375); Red Blood Count 3.53 M/mm3 (4.6-6.20); Red Cell Distribution Width 19.2 % (11.5-14.5)
[2022-09-07 15:49] LABS: Anion Gap 7 mmol/L (8-16); Blood Urea Nitrogen 13 mg/dL (9-20); Calcium 7.9 mg/dL (8.4-10.2); Carbon Dioxide 23 mmol/L (22-30); Chloride 101 mmol/L (98-107); Estimated CRCL calculation 92 ml/min; Estimated Glomerular Filt Rate > 60; Glucose 87 mg/dL (65-110); Potassium 4.4 mmol/L (3.4-5.0); Sodium 131 mmol/L (137-145)
[2022-09-07 16:15] LABS: Platelet Estimate Adequate (Adequate)
[2022-09-07 16:16] LABS: Schistocytes Rare (NORMAL)
[2022-09-07 16:17] LABS: Anisocytosis 2+ (NORMAL); Hypochromasia 1+ (NORMAL)
[2022-09-07 16:33] LABS: Iron 15 ug/dL (49-181)
[2022-09-07 16:37] LABS: Percent Iron Saturation 4 % (20-50)
--- NOTE | 2022-09-07 16:37 | PCSTNOTE ---
Bedside swallowing evaluation. Patient was seen upright in bed with head of bed elevated. Extremely [place]. Refused to trial food items he didn't like. Limited oral peripheral exam within normal limits except for missing dentition. Patient drank unlimited water and unlimited milk via straw with no difficulty. No signs of aspiration. Patient ate unlimited bites of chocolate icecream again with no difficulty. No signs of aspiration. Patient refused to trial nanci cracker. Due to missing teeth a modified diet texture is appropriate for this patient. Minced moist diet with regular liquids is recommended. Speech therapy is not recommended for this patient at this time. Please note that silent aspiration can only be evaluated with a modified barium swallow study. Swallowing precaution recommendations placed in chart. Thank you for the referral of this patient.
[2022-09-07 17:02] LABS: Ferritin 7.98 ng/mL (11.1-264)
[2022-09-07 17:45] LABS: Folic Acid 2.2 ng/mL (2.76->20)
[2022-09-07 18:16] LABS: Free T4 Free Thyroxine Reflex 1.39 ng/dL (0.78-2.19)
[2022-09-07] MEDS: FOLIC ACID 1 MG/0.2 ML INJ IV PUSH (18:17)
[2022-09-07 20:52] LABS: Sodium 130 mmol/L (137-145)
[2022-09-07 22:42] LABS: Total Triiodothyronine (T3) 0.77 NG/ML (0.97-1.69)
[2022-09-08 06:00] VITALS: BP 123/66; PULSE 68; RESP 18; TEMP 36.2; O2SAT 100
[2022-09-08 06:22] LABS: Basophils Percent Auto 0.4 % (0.2-1.2); Eosinophils Absolute Auto 0.1 K/mm3 (0-0.3); Eosinophils Percent Auto 0.6 % (0-4.4); Hematocrit 25.4 % (42.0-52.0); Hemoglobin 7.3 g/dL (14.0-18.0); Immature Granulocyte Absolute 0.02 K/mm3 (0.00-0.031); Immature Granulocyte Percent A 0.2 % (0-0.5); Lymphocytes Absolute Auto 4.67 K/mm3 (0.9-3.2); Lymphocytes Percent Auto 57.7 % (18.3-44.2); Mean Corpuscular HGB Conc 28.7 g/dl (32-36); Mean Corpuscular Hemoglobin 21.8 pg (26-34); Mean Corpuscular Volume 75.8 fl (80-100); Mean Platelet Volume 8.5 fl (7.4-10.4); Monocytes Absolute Auto 0.3 K/mm3 (0.1-0.6); Monocytes Percent Auto 3.7 % (2.6-8.5); Neutrophils Percent Auto 37.4 % (45.5-73.1); Platelet Count Result 232 k/mm3 (150-375); Red Blood Count 3.35 M/mm3 (4.6-6.20); Red Cell Distribution Width 18.9 % (11.5-14.5); White Blood Count 8.1 K/mm3 (4.5-10.0)
[2022-09-08 06:33] LABS: Anion Gap 1 mmol/L (8-16); Blood Urea Nitrogen 11 mg/dL (9-20); Calcium 7.9 mg/dL (8.4-10.2); Carbon Dioxide 28 mmol/L (22-30); Chloride 101 mmol/L (98-107); Estimated CRCL calculation 92 ml/min; Estimated Glomerular Filt Rate > 60; Glucose 83 mg/dL (65-110); Potassium 4.5 mmol/L (3.4-5.0); Sodium 130 mmol/L (137-145)
[2022-09-08 07:27] LABS: Hypochromasia 2+ (NORMAL); Platelet Estimate Adequate (Adequate)
[2022-09-08 07:28] LABS: Anisocytosis 1+ (NORMAL); Microcytosis 1+ (NORMAL); Ovalocytes 1+ (NORMAL); Schistocytes None Seen (NORMAL)
[2022-09-08] MEDS: SODIUM CHLORIDE 0.9% IV 1,000 ML 83 ML IV CONT (07:47)
[2022-09-08 07:50] VITALS: RESP 18; O2SAT 100
[2022-09-08] MEDS: FOLIC ACID 1 MG/0.2 ML INJ IV PUSH (08:04)
[2022-09-08] MEDS: ENOXAPARIN 40 MG/0.4 ML SYRINGE SUB-Q (08:05)
[2022-09-08] MEDS: IRON SUCROSE COMPLEX 100 MG in SODIUM CHLORIDE 0.9% IV 50 ML 220 MG IVPB (08:29)
--- NOTE | 2022-09-08 11:27 | PCOTNOTE ---
Attempted OT evaluation this am; pt. refused to participate in therapy. RN notified. Will attempt again as able.
--- NOTE | 2022-09-08 11:58 | PCPTNOTE ---
Attempted to do PT evaluation he shook his head no, also tried to get him up for lunch and refused also just tried to get his tray set up for him for lunch and he refused.
--- NOTE | 2022-09-08 12:16 | PM.IMPN ---
Progress Note: A&P Assessment and Plan (1) Generalized weakness: Code(s): R53.1 - Weakness Status: Acute Assessment and Plan: Patient was brought in after episode of emesis and GNW. Bandemia noted with elevated WBC but WBC normal now. He is anemic but appears chronic for him with workup showing iron deficiency. Having trouble eating due to no dentures so ST evaluation performed. They recommended minced and moist which was started. No further speech therapy recommended. PT/OT but patient refusing per staff. Called dtr but no answer. Spoke with Katie, the patient's ambulatory care. She states the patient is full care and that she can not provide the level of care for him that he requires. She states she will not be picking him up and that alternative arrangements will need to be made. Spoke with patient about this but he resfused to even discuss other options. He was insistent on being discharged and refused to accept the idea that there would be no one at home to care for him. He threatens to stop eating and drinking if he is not discharged. Explained that he is essentially bedbound and that he needs full care. Care coordination informed about need for placement possibly. (2) Acute hyponatremia: Code(s): E87.1 - Hypo-osmolality and hyponatremia Status: Acute Assessment and Plan: Na 127 on admission. Possibly related to poor oral intake. He was started on IV fluids. Repeat Na better at 130. Contineu IV fluids since september stop eating. (3) History of anemia of chronic disease: Code(s): Z86.2 - Personal history of diseases of the blood and blood-forming organs and certain disorders involving the immune mechanism Status: Acute Assessment and Plan: Hgb low but stable. B12 level normal. He does have folate deficiency probably from dietary self-limitations (Katie states patient is very picky eater). Iron studies consistent with iron deficiency anemia. Add IV iron. Continue IV folic acid replacement. Continue to monitor closely. (4) Elevated WBC count: Code(s): D72.829 - Elevated white blood cell count, unspecified Status: Acute Assessment and Plan: WBC 13K with bandemia. UA clear. CXR clear. Elevated WBC could be related to stress response. WBC normal now. Plan Patient is full code. DVT prophylaxis with Lovenox. Subjective Date/time seen: 09/08/22 12:16 Interval history: 81yo male here for weakness. No CP or SOB. No n/v. Requesting discharge. Exam Narrative: AF 97.2 123/66 68 18 100%ra Gen - thin male in NARD Chest - Clear to quiet respirations. nml RR CV - RRR S1/S2 Abd - Soft, NT/ND, Positive BS Ext - No pedal edema Neuro - [place]. more awake and alert. more engaged. Psych - angry about not being able to go home. eye contact better Skin - Warm and dry Objective Data Vital Signs Vital Signs: Vital Signs - 24 hr 09/07/22 14:00 09/07/22 19:34 09/07/22 22:00 Temperature 98.0 F 98.1 F 98.1 F Pulse Rate 95 74 65 Respiratory Rate 18 18 18 Blood Pressure 102/52 L 94/67 L 102/58 L Pulse Oximetry 100 91 92 Oxygen Delivery 09/07/22 20:00 09/08/22 06:00 09/08/22 07:50 Temperature 97.2 F L Pulse Rate 68 Respiratory Rate 18 18 Blood Pressure 123/66 Pulse Oximetry 100 100 Oxygen Delivery Room Air Room Air Intake/Output Intake/Output: Intake & Output 09/05/22 09/06/22 09/07/22 09/08/22 23:59 23:59 23:59 23:59 Intake Total 3120 1535 Output Total 750 900 Balance 2370 635 Meds/Results Medications: Active Medications Generic Name Dose Route Start Last Admin Trade Name Freq PRN Reason Stop Dose Admin Enoxaparin Sodium 40 mg 09/07/22 09:00 09/08/22 08:05 Enoxaparin 40 Mg/0.4 Ml Syringe SUB-Q 40 mg DAILY [facility] Administration Folic Acid 1 mg 09/08/22 09:00 09/08/22 08:04 Folic Acid 1 Mg/0.2 Ml Inj IV PUSH 1 mg QAM [facility] Administration Sodium Chloride 1,000 mls @ 83 mls/hr 09/07
[2022-09-08 15:04] VITALS: BP 127/78; PULSE 116; RESP 16; TEMP 36.6; O2SAT 98
[2022-09-08 20:51] VITALS: BP 113/55; PULSE 95; RESP 16; TEMP 36.7; O2SAT 95
--- NOTE | 2022-09-09 04:59 | PC.NURSE ---
This nurse entered patient's room around 0430 to find the IV that was just placed in his right wrist removed by patient. When attempts were made to replace IV, patient was confused, combative and uncooperative. Even during bed changes, patient was refusing to turn and stated he was going to call the court registry officer to report what we have done to him . A new IV was not placed at this time. Allowing patient to rest before attempting to place another site.
[2022-09-09] MEDS: HALOPERIDOL LACTATE 5 MG/ML VIAL IM (05:24)
[2022-09-09 05:50] LABS: Basophils Percent Auto 0.2 % (0.2-1.2); Eosinophils Percent Auto 0.4 % (0-4.4); Hemoglobin 7.8 g/dL (14.0-18.0); Immature Granulocyte Absolute 0.03 K/mm3 (0.00-0.031); Immature Granulocyte Percent A 0.3 % (0-0.5); Lymphocytes Absolute Auto 5.73 K/mm3 (0.9-3.2); Lymphocytes Percent Auto 55.1 % (18.3-44.2); Mean Corpuscular HGB Conc 27.9 g/dl (32-36); Mean Corpuscular Hemoglobin 21.5 pg (26-34); Mean Corpuscular Volume 77.1 fl (80-100); Mean Platelet Volume 8.5 fl (7.4-10.4); Monocytes Absolute Auto 0.3 K/mm3 (0.1-0.6); Monocytes Percent Auto 3.1 % (2.6-8.5); Neutrophils Absolute Auto 4.3 K/mm3 (1.3-6.7); Neutrophils Percent Auto 40.9 % (45.5-73.1); Platelet Count Result 297 k/mm3 (150-375); Red Blood Count 3.63 M/mm3 (4.6-6.20); White Blood Count 10.4 K/mm3 (4.5-10.0)
[2022-09-09 05:59] LABS: Anion Gap 7 mmol/L (8-16); Blood Urea Nitrogen 12 mg/dL (9-20); Calcium 8.1 mg/dL (8.4-10.2); Carbon Dioxide 25 mmol/L (22-30); Chloride 97 mmol/L (98-107); Estimated CRCL calculation 76 ml/min; Estimated Glomerular Filt Rate > 60; Glucose 86 mg/dL (65-110); Sodium 129 mmol/L (137-145)
[2022-09-09 06:00] VITALS: BP 102/55; PULSE 67; RESP 12; TEMP 36.6; O2SAT 96
[2022-09-09 06:26] LABS: Anisocytosis 2+ (NORMAL); Hypochromasia 1+ (NORMAL); Microcytosis 1+ (NORMAL); Platelet Estimate Adequate (Adequate); Schistocytes None Seen (NORMAL)
[2022-09-09 06:27] LABS: Burr Cells 1+ (NORMAL)
[2022-09-09] MEDS: MUPIROCIN 2% OINT 22 GM TUBE 1 APPLIC TOPICAL (12:09)
[2022-09-09 14:20] VITALS: BP 113/53; PULSE 106; RESP 18; TEMP 36.1; O2SAT 98
--- NOTE | 2022-09-09 14:34 | PM.IMPN ---
Progress Note: A&P Assessment and Plan (1) Generalized weakness: Code(s): R53.1 - Weakness Status: Acute Assessment and Plan: Patient was brought in after episode of emesis and GNW. Bandemia noted with elevated WBC but WBC normal now. He is anemic but appears chronic for him with workup showing iron deficiency. Having trouble eating due to no dentures. ST evaluation recommended minced and moist diet. No further speech therapy recommended. PT/OT but patient refusing per staff. Spoke with Katie, the patient's nurse behavioral health care. She states the patient is full care and that she can not provide the level of care for him that he requires. Explained to patient that if he works with therapy, he might be able to go home. He voices frustration and that he won't go to a skilled rehab. Continue to encourage compliance. (2) Acute hyponatremia: Code(s): E87.1 - Hypo-osmolality and hyponatremia Status: Acute Assessment and Plan: Na 127 on admission. Possibly related to poor oral intake. He was started on IV fluids. Repeat Na better at 129. He is refusing IV fluids so will stop. (3) History of anemia of chronic disease: Code(s): Z86.2 - Personal history of diseases of the blood and blood-forming organs and certain disorders involving the immune mechanism Status: Acute Assessment and Plan: Hgb low but stable. B12 level normal. He does have folate deficiency probably from dietary self-limitations (Katie states patient is very picky eater). Iron studies consistent with iron deficiency anemia. Continue Niferex. Change to oral Folic acid. (4) Elevated WBC count: Code(s): D72.829 - Elevated white blood cell count, unspecified Status: Acute Assessment and Plan: WBC 13K with bandemia. UA clear. CXR clear. Elevated WBC could be related to stress response. WBC normal now. Plan Irregualr rhythm - EKG on admission showing NSR with occasional PACs. check EKG. Possible foreign body - Hx of left femur fracture (2007). Clinically, the left knee appears to have hardware associated with the joint. animal cruelty investigation supervisor felt there a was a foreign body in the left knee wound. Check xray. Anorexia - nml BMs. No appetite. Add low dose Seroquel. Patient is full code. DVT prophylaxis with Lovenox. Subjective Date/time seen: 09/09/22 14:34 Interval history: 81yo male here for weakness. No complaints. Wants to be discharged home. He understands now that he can not go home but now insistent on going to assisted living. He is eating very little. No n/v. No diarrhea. Agitated earlier this morning and received Haldol IM once. he denies any hardware in the left knee Exam Narrative: AF 96.9 113/53 106 18 98%ra Gen - thin male in NARD Chest - distant BS CV - irregular Abd - Soft, NT/ND, Positive BS Ext - No pedal edema. left knee dressing clean and dry with small opening noted and ?metal. Obvious knee deformity and probably hardware Neuro - [place]. Awake and alert. Engaged and answers questions approrpiately. Psych - less angry today and more understanding of the current situation; easily calmed Skin - Warm and dry Objective Data Vital Signs Vital Signs: Vital Signs - 24 hr 09/08/22 15:04 09/08/22 19:44 09/08/22 20:51 Temperature 97.8 F 98.1 F Pulse Rate 116 H 95 Respiratory Rate 16 16 Blood Pressure 127/78 113/55 L Pulse Oximetry 98 95 Oxygen Delivery Room Air 09/09/22 06:00 09/09/22 08:35 09/09/22 08:23 Temperature 98 F Pulse Rate 67 Respiratory Rate 12 Blood Pressure 102/55 L Pulse Oximetry 96 Oxygen Delivery Room Air Room Air 09/09/22 09:28 09/09/22 14:20 Temperature 96.9 F L Pulse Rate 106 H Respiratory Rate 18 Blood Pressure 113/53 L Pulse Oximetry 98 Oxygen Delivery Room Air Intake/Output Intake/Output: Intake & Output 09/06/22 09/07/22 09/08/22 09/09/22 23:59 23:59 23:59 23:59 Intake Total 3121 7981 716 Output Total
--- NOTE | 2022-09-09 16:43 | ECG_ITS ---
Measurements Intervals [place] Rate: 112 P: 68 VA: 200 QRS: -11 QRSD: 94 T: 76 QT: 318 QTc: 436 Interpretive Statements SINUS TACHYCARDIA NONSPECIFIC ST AND T-WAVE ABNORMALITY ABNORMAL RHYTHM ECG COMPARED TO ECG 09/06/2022 22:02:11 HEART RATE INCREASED NO OTHER SIGNIFICANT CHANGE Electronically Signed On 09-10-2022 7:03:06 CDT by Alexandre Alejandro M.D.
[2022-09-09] MEDS: FOLIC ACID 1 MG TABLET PO (17:27)
[2022-09-09] MEDS: QUEtiapine FUMARATE 12.5 MG TABLET PO (20:48)
[2022-09-09 22:23] VITALS: BP 111/67; PULSE 109; RESP 18; TEMP 37.1; O2SAT 96
[2022-09-10 06:00] VITALS: BP 108/57; PULSE 120; RESP 20; TEMP 36.8; O2SAT 98
[2022-09-10 08:00] VITALS: O2SAT 98
[2022-09-10] MEDS: MUPIROCIN 2% OINT 22 GM TUBE 1 APPLIC TOPICAL (08:58)
[2022-09-10 08:59] VITALS: PULSE 99
[2022-09-10] MEDS: ENOXAPARIN 40 MG/0.4 ML SYRINGE SUB-Q (08:59)
[2022-09-10] MEDS: METOPROLOL SUCCINATE EXT REL 50 MG TABCR PO (08:59)
[2022-09-10] MEDS: POLYSACCHARIDE IRON COMPLEX 150 MG CAPSULE PO (09:02)
[2022-09-10] MEDS: PANTOPRAZOLE 40 MG TABLET PO (09:04)
[2022-09-10] MEDS: FOLIC ACID 1 MG TABLET PO (09:04)
--- NOTE | 2022-09-10 11:41 | PM.CNOR ---
Assessment and Plan Assessment and plan (1) Orthopedic hardware present: Code(s): Z97.8 - Presence of other specified devices Status: Chronic Plan 81-year-old male with skin break right medial proximal tibia status post prominent hardware. Best course of action is going to be to incise this area and cut the screw off flush with the bone. Will need to discuss with his medical power of criminal defense attorney. Plan surgery tomorrow. History of Present Illness HPI Consult date: 09/10/22 Chief complaint: Generalized weakness, hyponatremia, failure to thr Narrative: This document created with [id number] technology and is subject to nailing machine operator irregularities. 81-year-old male and history of ORIF left tibia and femur. Has got prominent hardware overlying the medial tibial plateau which has eroded through the skin. Patient is a poor historian. Review of Systems Review of Systems: ROS unobtainable: Yes unobtainable due to mental status (Not terribly communicative) PMFSH Past Medical History Medical History Iron deficiency anemia Symptomatic anemia UTI (urinary tract infection) Family History Family History Sibling Congestive heart failure Sibling Congestive heart failure Father Hypertension Heart disease Mother Hypertension Heart disease Social History Social History Smoking packs per day: 0.5 Smoking cigarettes per day: 10.0 Years smoked: 5 Smoking pack-years: 2.50 Smoking status: Never smoker Tobacco type: cigarettes Alcohol intake: never Substance use: never Substance use type: does not use Lack of Transportation: No Lack of Food: Never True Current Housing: I Have Housing Concerned About Future Housing: No Difficulty Paying Gas/Electric Bills: No Difficulty Paying for Meds: No Currently Unemployed: No Education: Grade School Difficulty w/ Childcare or Family Care: No Spiritual care concerns: No Meds Home Medications and Allergies Home Medications Medication Instructions Recorded Confirmed Type aspirin 81 mg tablet,delayed 81 mg PO QAM 1 month #30 tabs 01/15/22 09/07/22 Rx release metoprolol succinate 50 mg 50 mg PO DAILY 09/07/22 09/07/22 History tablet,extended release 24 hr Allergies Allergy/AdvReac Type Severity Reaction Status Date / Time No Known Allergies Allergy Verified 05/07/22 13:35 Vital Signs Vital Signs - 24 hr 09/09/22 14:20 09/09/22 22:23 09/10/22 06:00 Temperature 96.9 F L 98.7 F 98.2 F Pulse Rate 106 H 109 H 120 H Respiratory Rate 18 18 20 Blood Pressure 113/53 L 111/67 108/57 L Pulse Oximetry 98 96 98 Oxygen Delivery 09/10/22 08:00 09/10/22 08:59 Temperature Pulse Rate 99 Respiratory Rate Blood Pressure Pulse Oximetry 98 Oxygen Delivery Room Air Exam Const: General: alert and awake; No acute distress HENMT: Head: normal to inspection Ears: hearing grossly abnormal bilaterally (Appears hard of hearing) Mouth: Yes moist mucous membranes Eyes: General: appearance normal, both eyes and all related structures Resp: Effort & Inspection: normal respiratory effort and able to speak in complete sentences Cardio: Rate: regular rate Rhythm: regular rhythm Peripheral pulses: other (Palpable lower extremity pulses ) GI: Inspection: non-distended Rectal Exam: deferred Skin: General skin exam: normal color Neuro: General: moves all extremities (Lower extremities contracted) Gait exam (Neuro): Other gait observations present Extrem: General: normal to inspection and other Other: Exam of left knee reveals a very small perforation overlying the medial tibial plateau with slight surrounding erythema. Screw throughout seen in the base of this. Patient is quite thin. Can see the hardware on the lateral portion of his proxima
--- NOTE | 2022-09-10 13:08 | PM.IMPN ---
Progress Note: A&P Assessment and Plan (1) Generalized weakness: Code(s): R53.1 - Weakness Status: Acute Assessment and Plan: Patient was brought in after episode of emesis and GNW. Bandemia noted with elevated WBC but WBC normal now. Not on abx. TSH mildly elevated but FT4 normal. B12 normal but Folate deficiency. He is anemic but appears chronic for him with workup showing iron deficiency. Having trouble eating due to no dentures. ST evaluation recommended minced and moist diet. No further speech therapy recommended. PT/OT started Spoke with Katie, the patient's childbirth and infant care teacher. She states the patient is full care and that she can not provide the level of care for him that he requires. Patient will need to go to a rehab at discharge. Seroquel started to help with appetite. (2) Acute hyponatremia: Code(s): E87.1 - Hypo-osmolality and hyponatremia Status: Acute Assessment and Plan: Na 127 on admission. Possibly related to poor oral intake. He was started on IV fluids. Repeat Na better at 129. He is refusing IV fluids so this was stopped. (3) History of anemia of chronic disease: Code(s): Z86.2 - Personal history of diseases of the blood and blood-forming organs and certain disorders involving the immune mechanism Status: Acute Assessment and Plan: Hgb low but stable. B12 level normal. He does have folate deficiency probably from dietary self-limitations (Katie states patient is very picky eater). Iron studies consistent with iron deficiency anemia. He was on IV iron but patient was refusing. Continue Niferex. Continue oral Folic acid. (4) Elevated WBC count: Code(s): D72.829 - Elevated white blood cell count, unspecified Status: Acute Assessment and Plan: WBC 13K with bandemia. UA clear. CXR clear. Elevated WBC could be related to stress response. WBC normal now. (5) Orthopedic hardware present: Code(s): Z97.8 - Presence of other specified devices Status: Chronic Assessment and Plan: Possible foreign body noted in a wound to the left knee. Xray showing that he probably has a screw tip protruding out. He has a hx of left femur fracture (2007) with metal HW placement. Discussed with ortho. Plan for screw removal in OR tomorrow. Plan Irregular rhythm - EKG on admission showing NSR with occasional PACs. Repeat EKG continues to show sinus mechanism. Anorexia - Nml BMs. No evidence of infection. He has poor appetite. Continue low dose Seroquel. Teaching Supervisor consult. Continue supplements. Patient is full code. DVT prophylaxis with Lovenox. Subjective Date/time seen: 09/10/22 13:08 Interval history: 81yo male with CAD here for weakness. He slept poorly. Too many interruptions. no CP or SOB. 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 RN states patient took his pills and ate small amounts Exam Narrative: AF 98.2 108/57 99 20 98%ra Gen - thin male in NARD Chest - distant BS to quiet respirations. nml RR CV - RRR S1/S2 with occasional extra beats Abd - Soft, NT/ND, Positive BS Ext - No pedal edema. Medial left knee small, open area with visible hardware Neuro - [place]. Awake and alert. Oriented x 3 (month, location and [place] but not year). Psych - calm and cooperative. Skin - Warm and dry Objective Data Vital Signs Vital Signs: Vital Signs - 24 hr 09/09/22 14:20 09/09/22 22:23 09/10/22 06:00 Temperature 96.9 F L 98.7 F 98.2 F Pulse Rate 106 H 109 H 120 H Respiratory Rate 18 18 20 Blood Pressure 113/53 L 111/67 108/57 L Pulse Oximetry 98 96 98 Oxygen Delivery 09/10/22 08:00 09/10/22 08:59 Temperature Pulse Rate 99 Respiratory Rate Blood Pressure Pulse Oximetry 98 Oxygen Delivery Room Air Intake/Output Intake/Output: Intake & Output 09/07/22 09/08/22 09/09/22 09/10/22 23:59 23:59 23:59 23:59 Intake Total 3120 1875 1156 480 Output Total 750 1200 1350 Balance 2370 675 -194 480 Meds/
[2022-09-10 13:46] VITALS: BMI 23.2
[2022-09-10 14:20] VITALS: BP 100/60; PULSE 94; RESP 18; TEMP 36.9; O2SAT 100
[2022-09-10 19:38] VITALS: BP 106/62; PULSE 100; RESP 16; TEMP 37; O2SAT 99
[2022-09-10 20:00] VITALS: PULSE 100; RESP 16; O2SAT 99
[2022-09-11] VITALS (12 sets, daily range): BP systolic 97–130; BP diastolic 46–76; PULSE 62–100; RESP 16–18; TEMP 36–36.7; O2SAT 94–100
[2022-09-11 06:08] LABS: Basophils Percent Auto 0.2 % (0.2-1.2); Eosinophils Absolute Auto 0.1 K/mm3 (0-0.3); Eosinophils Percent Auto 0.6 % (0-4.4); Hematocrit 27.6 % (42.0-52.0); Hemoglobin 7.7 g/dL (14.0-18.0); Immature Granulocyte Absolute 0.03 K/mm3 (0.00-0.031); Immature Granulocyte Percent A 0.3 % (0-0.5); Lymphocytes Percent Auto 52.5 % (18.3-44.2); Mean Corpuscular HGB Conc 27.9 g/dl (32-36); Mean Corpuscular Hemoglobin 21.4 pg (26-34); Mean Corpuscular Volume 76.9 fl (80-100); Mean Platelet Volume 8.4 fl (7.4-10.4); Monocytes Absolute Auto 0.3 K/mm3 (0.1-0.6); Monocytes Percent Auto 2.6 % (2.6-8.5); Neutrophils Absolute Auto 4.7 K/mm3 (1.3-6.7); Neutrophils Percent Auto 43.8 % (45.5-73.1); Platelet Count Result 280 k/mm3 (150-375); Red Blood Count 3.59 M/mm3 (4.6-6.20); Red Cell Distribution Width 19.4 % (11.5-14.5); White Blood Count 10.7 K/mm3 (4.5-10.0)
[2022-09-11 06:21] LABS: Anion Gap 8 mmol/L (8-16); Blood Urea Nitrogen 16 mg/dL (9-20); Calcium 8.6 mg/dL (8.4-10.2); Carbon Dioxide 27 mmol/L (22-30); Chloride 96 mmol/L (98-107); Estimated CRCL calculation 92 ml/min; Estimated Glomerular Filt Rate > 60; Glucose 100 mg/dL (65-110); Potassium 4.6 mmol/L (3.4-5.0); Sodium 131 mmol/L (137-145)
[2022-09-11 06:54] LABS: Platelet Estimate Adequate (Adequate)
[2022-09-11 06:55] LABS: Hypochromasia 2+ (NORMAL); Poikilocytosis 1+ (NORMAL); Schistocytes None Seen (NORMAL)
--- NOTE | 2022-09-11 08:56 | PM.IMPN ---
Progress Note: A&P Assessment and Plan (1) Generalized weakness: Code(s): R53.1 - Weakness Status: Acute Assessment and Plan: Patient was brought in after episode of emesis and GNW. Bandemia noted with elevated WBC but WBC normal now. Not on abx. TSH mildly elevated but FT4 normal. B12 normal but Folate deficiency. He is anemic but appears chronic for him with workup showing iron deficiency. Having trouble eating due to no dentures. ST evaluation recommended minced and moist diet. No further speech therapy recommended. PT/OT started Patient will need to go to a rehab at discharge. Seroquel initiated to stimulate appetite (2) Acute hyponatremia: Code(s): E87.1 - Hypo-osmolality and hyponatremia Status: Acute Assessment and Plan: Improving to 131 (3) History of anemia of chronic disease: Code(s): Z86.2 - Personal history of diseases of the blood and blood-forming organs and certain disorders involving the immune mechanism Status: Acute Assessment and Plan: Hgb low but stable. B12 level normal. He does have folate deficiency probably from dietary self-limitations (Katie states patient is very picky eater). Iron studies consistent with iron deficiency anemia. He was on IV iron but patient was refusing. Continue Niferex. Continue oral Folic acid. (4) Elevated WBC count: Code(s): D72.829 - Elevated white blood cell count, unspecified Status: Acute Assessment and Plan: WBC 13K with bandemia. UA clear. CXR clear. Elevated WBC could be related to stress response. WBC normal now. Monitor (5) Orthopedic hardware present: Code(s): Z97.8 - Presence of other specified devices Status: Chronic Assessment and Plan: Possible foreign body noted in a wound to the left knee. Xray showing that he probably has a screw tip protruding out. He has a hx of left femur fracture (2007) with metal HW placement. Discussed with ortho. Plan for screw removal in OR 09/11. Plan Irregular rhythm - EKG on admission showing NSR with occasional PACs. Repeat EKG continues to show sinus mechanism. Anorexia - Nml BMs. No evidence of infection. He has poor appetite. Continue low dose Seroquel. Reporting Analyst consult. Continue supplements. Patient is full code. DVT prophylaxis with Lovenox. Subjective Date/time seen: 09/11/22 08:56 Interval history: 81yo male with CAD here for weakness. No overnight events noted. No chest pain or shortness of breath. No nausea, vomiting or diarrhea. No fevers or chills. Review of Systems Review of Systems: 12 point review of systems was assessed and was negative except as noted in the HPI Exam Narrative: General: No acute distress, alert and oriented per baseline HEENT: Atraumatic, normocephalic, mucous membranes moist CV: Regular rate and rhythm, S1, S2 Lungs: Clear to auscultation bilaterally, no rales or crackles noted, no wheezes, good air entry Abdomen: Soft, nontender, nondistended Extremities: Normal to inspection, bandage noted over left knee, clean/dry/intact Skin: No rashes noted, no lesions or wounds seen Psych: Euthymic, normal affect Objective Data Vital Signs Vital Signs: Vital Signs - 24 hr 09/10/22 08:59 09/10/22 14:20 09/10/22 19:38 Temperature 98.4 F 98.6 F Pulse Rate 99 94 100 Respiratory Rate 18 16 Blood Pressure 100/60 106/62 Pulse Oximetry 100 99 Oxygen Delivery 09/10/22 20:00 09/11/22 05:37 Temperature 98.0 F Pulse Rate 100 100 Respiratory Rate 16 18 Blood Pressure 110/70 Pulse Oximetry 99 100 Oxygen Delivery Room Air Intake/Output Intake/Output: Intake & Output 09/08/22 09/09/22 09/10/22 09/11/22 23:59 23:59 23:59 23:59 Intake Total 1875 1156 2160 400 Output Total 1200 1350 Balance 675 -194 2160 400 Meds/Results Medications: Active Medications Generic Name Dose Route Start Last Admin Trade Name Freq PRN Reason
[2022-09-11] MEDS: LACTATED RINGERS 1,000 ML 30 ML IV CONT (15:25)
--- NOTE | 2022-09-11 16:03 | WPDANESEPPF ---
Anes - Initial Pre Proc Eval Procedure: Operation Date: 09/11/22 16:00 Proposed Procedures p Removal Prominent Hardware Left Knee - Mirza Davis MD Date/Time: 09/11/22 16:03 Surgeon: Antony Turner MD Pre Op Diagnosis: Generalized weakness, hyponatremia, failure to thr Patient Data Age: 81 Gender: M Height: 1.57 m Weight: 57.7 kg Last Vital Signs Temp 36.7 C 09/11/22 15:21 Pulse 100 09/11/22 15:21 Resp 16 09/11/22 15:21 BP 105/67 09/11/22 15:21 Pulse Ox 98 09/11/22 15:21 O2 Del Method Room Air 09/11/22 15:21 Allergies Allergy/AdvReac Type Severity Reaction Status Date / Time No Known Allergies Allergy Verified 05/07/22 13:35 Home Medications Medication Instructions Recorded Confirmed Type aspirin 81 mg tablet,delayed 81 mg PO QAM 1 month #30 tabs 01/15/22 09/07/22 Rx release metoprolol succinate 50 mg 50 mg PO DAILY 09/07/22 09/07/22 History tablet,extended release 24 hr Laboratory Tests 09/11/22 09/11/22 05:35 05:35 WBC 10.7 K/mm3 H K/mm3 (4.5-10.0) RBC 3.59 M/mm3 L M/mm3 (4.6-6.20) Hgb 7.7 g/dL L g/dL (14.0-18.0) Hct 27.6 % L % (42.0-52.0) MCV 76.9 fl L fl (80-100) MCH 21.4 pg L pg (26-34) MCHC 27.9 g/dl L g/dl (32-36) RDW 19.4 % H % (11.5-14.5) Plt Count 280 k/mm3 k/mm3 (150-375) MPV 8.4 fl fl (7.4-10.4) Immature Gran % (Auto) 0.3 % % (0-0.5) Neut % (Auto) 43.8 % L % (45.5-73.1) Lymph % (Auto) 52.5 % H % (18.3-44.2) [place] % (Auto) 2.6 % % (2.6-8.5) Eos % (Auto) 0.6 % % (0-4.4) Baso % (Auto) 0.2 % % (0.2-1.2) Lymph # (Auto) 5.60 K/mm3 H K/mm3 (0.9-3.2) [place] # (Auto) 0.3 K/mm3 K/mm3 (0.1-0.6) Eos # (Auto) 0.1 K/mm3 K/mm3 (0-0.3) Baso # (Auto) 0.0 K/mm3 K/mm3 (0.0-0.1) Abs Immat Gran (auto) 0.03 K/mm3 K/mm3 (0.00-0.031) Absolute Neuts (auto) 4.7 K/mm3 K/mm3 (1.3-6.7) Absolute Nucleated RBC 0.0 K/mm3 K/mm3 (0.0-0.012) Nucleated RBC % 0.0 % % (0.0-0.2) Platelet Estimate Adequate (Adequate) Hypochromasia 2+ (NORMAL) Poikilocytosis 1+ (NORMAL) Schistocytes None seen (NORMAL) Sodium 131 mmol/L L mmol/L (137-145) Potassium 4.6 mmol/L mmol/L (3.4-5.0) Chloride 96 mmol/L L mmol/L (98-107) Carbon Dioxide 27 mmol/L mmol/L (22-30) Anion Gap 8 mmol/L mmol/L (8-16) BUN 16 mg/dL mg/dL (9-20) Creatinine 0.40 mg/dL L mg/dL (0.7-1.3) Estim Creat Clear Calc 92 ml/min ml/min Estimated GFR > 60 (59 - ) Glucose 100 mg/dL mg/dL (65-110) Calcium 8.6 mg/dL mg/dL (8.4-10.2) Patient hx anesthesia problems: none Family hx anesthesia problems: none Results Review: All pre-operative results and documents have been reviewed as part of the pre-operative evaluation. [facility] Past Medical History Medical History (Updated 09/11/22 @ 16:04 by Jair Long DO) Congestive heart failure Hypertension Hyponatremia Iron deficiency anemia Symptomatic anemia UTI (urinary tract infection) Surgical History Surgical History (Updated 09/11/22 @ 16:04 by Jair Long DO) History of coronary artery bypass graft x4 Family History Family History Sibling Congestive heart failure Sibling Congestive heart failure Father Hypertension Heart disease Mother Hypertension Heart disease Social History Social History Smoking packs per day: 0.5 Smoking cigarettes per day: 10.0 Years smoked: 5 Smoking pack-years: 2.50 Smoking status: Never smoker Tobacco type: cigarettes Alcohol intake: never Substance use: never Substance use type: does not use Lack of Transportation: No Lack of Food:
[2022-09-11] MEDS: ceFAZolin 2 GM/D5W 50 ML 2 GM/50 ML BAG IVPB (16:11)
--- NOTE | 2022-09-11 16:44 | W.PM.PROC2 ---
Procedure Note - Detailed Date of Procedure 09/11/22 Pre-op Diagnosis prominent hardware left proximal tibia Post-op Diagnosis Same Procedure Performed removal hardware left proximal tibia (two screws) Surgeon Mirza Davis MD Welding Rod Coater Oliver Carrillo Anesthesia General Description of Procedure the patient was identified and proper site identified. He was taken to the operating room transferred to the OR table placing supine taking care to pad his torso and extremities. After general anesthetic induction and intubation the left lower extremities prepped and draped in usual sterile fashion. Several cc of 1% plain lidocaine was injected into the subcutaneous tissue over the proximal aspect of the lateral plate the lateral tibial plateau. Medially the erosive wound was debrided removing devitalized granulation tissue with a small rongeur. A short incision was made over the central portion of the plate and the two central screws removed removing the prominence of the threads medially. Wound re-irrigated. Medial wound was left open to drain and granulate in. Lateral wound was closed with nylon suture. Sterile dressing was applied. He tolerated the procedure well. Was awakened, extubated and taken to recovery area in stable condition. There were no known intraoperative complications. Estimated blood loss negligible. He received perioperative antibiotics. Estimated Blood Loss 2 Urine Output 350 Drains No Packing No Pathology None sent Complications No immediate complications Condition Stable Disposition PACU [facility] Billing Surgery - Charge Forward: Surgery Billing ([id number] x 2 screws)
[2022-09-11] MEDS: SODIUM CHLORIDE 0.9% IV 1,000 ML 125 ML IV CONT (17:59)
[2022-09-11] MEDS: QUEtiapine FUMARATE 12.5 MG TABLET PO (21:55)
--- NOTE | 2022-09-12 00:35 | PC.NURSE ---
Patient has removed surgical dressing twice this evening. Both times patient was stopped by staff and educated on importance of why he needs to leave surgical dressing intact. Both times patient nodded and verbalized understanding. Patient was found approximately 0015 with full surgical dressing removed. TIMOTHY, fluffs, reinforcement gauze from this contract technical writer, and xeroform were removed by patient. This contract technical writer discussed this with charge nurse Brie Wiggins RN. Per this writers observations of patient on evening prior, patient left mepilex dressing alone. Orders for 09/13 are to dress wound with mepilex dressing. This contract technical writer cleansed wounds then chose to continue surgical xeroform as wound was still oozing blood and prevention of wound from sticking to dressing. Applied gauze pad. Placed 4X4 mepilex dressing. Performed same dressing change on other surgical site on inner knee. Dressings signed and dated. Wrapped knee with TIMOTHY to assist with possible swelling of surgical site. Educated patient on importance of leaving dressing alone.
[2022-09-12 06:53] VITALS: BP 118/58; PULSE 74; RESP 16; TEMP 36.6; O2SAT 93
[2022-09-12 07:13] VITALS: BP 107/58; PULSE 81; RESP 18; TEMP 36.7; O2SAT 94
[2022-09-12] MEDS: ceFAZolin 2 GM/D5W 50 ML 2 GM/50 ML BAG IVPB (08:36)
[2022-09-12] MEDS: ENOXAPARIN 40 MG/0.4 ML SYRINGE SUB-Q (09:33)
--- NOTE | 2022-09-12 10:32 | PM.DS ---
DS: Admitting Diagnosis Discharge Date 09/12/2022 Admitting Diagnosis Generalized weakness DS: Discharge Diagnosis Discharge Diagnosis (1) Generalized weakness: Code(s): R53.1 - Weakness Status: Acute Assessment and Plan: Patient was brought in after episode of emesis and weakness. Bandemia noted with elevated WBC but WBC normal now. Not on abx. TSH mildly elevated but FT4 normal. B12 normal but Folate deficiency. He is anemic but appears chronic for him with workup showing iron deficiency. Having trouble eating due to no dentures. ST evaluation recommended minced and moist diet. No further speech therapy recommended. PT/OT started Patient will need to go to a rehab at discharge. Seroquel initiated to stimulate appetite (2) Acute hyponatremia: Code(s): E87.1 - Hypo-osmolality and hyponatremia Status: Acute Assessment and Plan: Improving to 131 (3) History of anemia of chronic disease: Code(s): Z86.2 - Personal history of diseases of the blood and blood-forming organs and certain disorders involving the immune mechanism Status: Acute Assessment and Plan: Hgb low but stable. B12 level normal. He does have folate deficiency probably from dietary self-limitations (Katie states patient is very picky eater). Iron studies consistent with iron deficiency anemia. He was on IV iron but patient was refusing. Continue Niferex. Continue oral Folic acid. (4) Elevated WBC count: Code(s): D72.829 - Elevated white blood cell count, unspecified Status: Acute Assessment and Plan: WBC 13K with bandemia. UA clear. CXR clear. Elevated WBC could be related to stress response. WBC normal now. Monitor (5) Orthopedic hardware present: Code(s): Z97.8 - Presence of other specified devices Status: Chronic Assessment and Plan: Possible foreign body noted in a wound to the left knee. Xray showing that he probably has a screw tip protruding out. He has a hx of left femur fracture (2007) with metal HW placement. Discussed with ortho. Plan for screw removal in OR 09/11. Plan Irregular rhythm - EKG on admission showing NSR with occasional PACs. Repeat EKG continues to show sinus mechanism. Anorexia - Nml BMs. No evidence of infection. He has poor appetite. Continue low dose Seroquel. Residential Door Unit Installer consult. Continue supplements. Patient is full code. DVT prophylaxis with Lovenox. DS: Summary Hospital Course Hospital Course: 81-year-old male with history anemia frequent UTIs is presenting with generalized weakness, nausea and vomiting. He was found to be hyponatremic. Patient's caregiver states that he can no longer live safely at home and will need to be placed at a facility. Patient was complaining of pain in his left tibia and femur, found to have a screw overlying the medial tibial plateau which had eroded through the skin. Orthopedic surgery was consulted and took the patient to the OR to shave the catering sous chef. Patient tolerated the procedure well and was discharged to a nursing facility. Please see above and med rec for details. Time Spent with Patient Time attestation: Total time spent providing and/or coordinating discharge services: Exam Narrative: General: No acute distress, alert and oriented per baseline HEENT: Atraumatic, normocephalic, mucous membranes moist CV: Regular rate and rhythm, S1, S2 Lungs: Clear to auscultation bilaterally, no rales or crackles noted, no wheezes, good air entry Abdomen: Soft, nontender, nondistended Extremities: Normal to inspection, bandage noted over left knee, clean/dry/intact Skin: No rashes noted, no lesions or wounds seen Psych: Euthymic, normal affect Discharge Plan Discharge Attending physician on discharge: Paulina Guillen Consulting providers: Eric Bañuelos; Silvestre Bolaños; Thom Loredo; Alexandre Alejandro; Sharri North; Mirza Davis Discharging [facility]
--- NOTE | 2022-09-12 11:12 | WPDANESPN ---
Anes - Prog Note Post-Op Date/Time: 09/12/22 11:12 Cardiovascular status: normal Respiratory status: normal Airway patency: baseline Mental status: baseline Post-Op hydration status: normal Vital Signs: Last Vital Signs Temp 98.0 F 09/12/22 07:13 Pulse 81 09/12/22 07:13 Resp 18 09/12/22 07:13 BP 107/58 L 09/12/22 07:13 Pulse Ox 94 09/12/22 07:13 O2 Del Method Room Air 09/12/22 09:35 O2 Flow Rate 6 09/11/22 16:55 Pain Score (VAS): 0 I/O: Intake & Output 09/11/22 09/12/22 09/12/22 23:59 07:59 15:59 Intake Total 200 350 270 Output Total 350 Balance -150 350 270 Laboratory Tests 09/11/22 05:35 09/11/22 05:35 Post-procedural complaints: none Patient Feedback: Patient satisfied with anesthetic care.
[2022-09-12 11:13] VITALS: BP 124/73; PULSE 108; RESP 18; TEMP 36.5; O2SAT 97
[2022-09-12 11:22] LABS: Basophils Percent Auto 0.2 % (0.2-1.2); Eosinophils Absolute Auto 0.1 K/mm3 (0-0.3); Eosinophils Percent Auto 0.6 % (0-4.4); Hematocrit 29.1 % (42.0-52.0); Hemoglobin 8.2 g/dL (14.0-18.0); Immature Granulocyte Absolute 0.03 K/mm3 (0.00-0.031); Immature Granulocyte Percent A 0.3 % (0-0.5); Lymphocytes Absolute Auto 4.98 K/mm3 (0.9-3.2); Lymphocytes Percent Auto 55.5 % (18.3-44.2); Mean Corpuscular HGB Conc 28.2 g/dl (32-36); Mean Corpuscular Volume 78.2 fl (80-100); Mean Platelet Volume 8.2 fl (7.4-10.4); Monocytes Absolute Auto 0.2 K/mm3 (0.1-0.6); Monocytes Percent Auto 2.6 % (2.6-8.5); Neutrophils Absolute Auto 3.7 K/mm3 (1.3-6.7); Neutrophils Percent Auto 40.8 % (45.5-73.1); Platelet Count Result 284 k/mm3 (150-375); Red Blood Count 3.72 M/mm3 (4.6-6.20); Red Cell Distribution Width 20.1 % (11.5-14.5)
[2022-09-12 11:32] LABS: Alanine Aminotransferase 11 U/L (6-50); Albumin Level 3.3 g/dL (3.5-5.1); Alkaline Phosphatase 94 U/L (38-126); Anion Gap 6 mmol/L (8-16); Aspartate Amino Transferase 14 U/L (17-59); Bilirubin,Total 0.4 mg/dL (0.2-1.3); Blood Urea Nitrogen 13 mg/dL (9-20); Calcium 8.3 mg/dL (8.4-10.2); Carbon Dioxide 28 mmol/L (22-30); Chloride 97 mmol/L (98-107); Estimated CRCL calculation 92 ml/min; Estimated Glomerular Filt Rate > 60; Glucose 111 mg/dL (65-110); Potassium 4.2 mmol/L (3.4-5.0); Sodium 131 mmol/L (137-145)
[2022-09-12 12:27] LABS: Platelet Estimate Adequate (Adequate)
[2022-09-12 12:28] LABS: Anisocytosis 1+ (NORMAL); Burr Cells 1+ (NORMAL); Hypochromasia 2+ (NORMAL); Schistocytes None Seen (NORMAL)
--- NOTE | 2022-09-12 13:13 | PC.NURSE ---
On 09/12/22, the student, [Rain Pelletier], provided care and completed [facility] documentation on this patient. I have reviewed the student's documentation and agree with the findings.
[2022-09-12 15:38] LABS: EDCOVIDSCREEN Negative (Negative)
[2022-09-12 16:32] VITALS: BP 111/66; PULSE 103; RESP 18; TEMP 36.9; O2SAT 96
== END 2022-09-12 17:25 | DRG 988 ==
LOC: ANHED 09-07 02:53 → ANH2MED 09-07 03:42
PROVIDERS: Internal Medicine; Orthopaedic Surgery; Admitting Provider Internal Medicine; Emergency Provider Emergency Medicine; PCP Family Medicine Adolescent Medicine; Visit Provider Student in an Organized Health Care Education/Training Program
PROC: 0QPH04Z Removal of Internal Fixation Device from Left Tibia, Open Approach (ICD-10-PCS; principal; 2022-09-11 16:00)
DX: E87.1 Hypo-osmolality and hyponatremia (principal); R64 Cachexia; T84.89XA Other specified complication of internal orthopedic prosthetic devices, implants and grafts, initial encounter; R53.1 Weakness; D50.9 Iron deficiency anemia, unspecified; D72.829 Elevated white blood cell count, unspecified; R62.7 Adult failure to thrive; Z79.82 Long term (current) use of aspirin
CPT/HCPCS: 36415; 71046; 73560; 73562; 80048; 80053; 81001; 82550; 82607; 82728; 82746; 83540; 83550; 83605; 83690; 83735; 84295; 84439; 84443; 84480; 84484; 85025; 87426; 92610; 93005; 96361; 96365; 96367; 96372; 96375; 96376; 97161; 97165; 99285; A9270; C9803; G0378; J0690; J0696; J1630; J1650; J1756; J2405; J2704; J3475; J7030; J7120

== ENCOUNTER 2022-12-05 20:30 | Observation (INO) | payer OTHER, SELFPAY ==
--- NOTE | ~2022-12-05 | XR_ITS ---
EXAMINATION: XR chest 1V portable DATE: 12/05/2022 22:00 INDICATION: Altered mental status. TECHNIQUE: A single frontal view of the chest was obtained. COMPARISON: Chest 2 views 09/06/2022 FINDINGS: There are airspace opacities at left lung base. No pleural effusion or pneumothorax. The he art size is normal. Median sternotomy wires and mediastinal surgical clips are seen, likely from prio r coronary artery bypass grafting. Shrapnel overlies right shoulder. IMPRESSION: 1. Airspace opacities at left lung base, consistent with atelectasis versus pneumonia. Reviewed, dictated and finalized at location E. IMPRESSION: 1. Airspace opacities at left lung base, consistent with atelectasis versus pne umonia.
--- NOTE | ~2022-12-05 | CT_ITS ---
EXAMINATION: CT cervical spine wo con DATE: 12/05/2022 21:22 INDICATION: Fall. TECHNIQUE: Computed tomography (CT) of the cervical spine was performed without intravenous contrast. Automated exposure control and iterative reconstruction technique were employed. The dose-length pro duct was 95.79 mGy-cm. COMPARISON: None FINDINGS: There is 5 degrees dextrocurvature of cervical spine. There is kyphosis of cervical spine. Vertebral body heights are normal. There is mildly decreased disc height at C2-C3 and C3-C4, moderate ly decreased disc height at C4-C5, severely decreased disc height at C5-C6, and moderately decreased disc height at C6-C7. The following disc levels are specifically discussed: C2-C3: There is mild right and moderate left uncovertebral joint osteoarthritis. There is severe bila teral facet joint osteoarthritis. There is mild left neural foraminal stenosis. There is no central c anal stenosis. C3-C4: There is moderate right and severe left uncovertebral joint osteoarthritis. There is mild righ t facet joint osteoarthritis. There is ankylosis of left facet joint with moderate hypertrophy. There is mild bilateral neural foraminal stenosis. There is mild central canal stenosis. C4-C5: There is severe bilateral uncovertebral joint osteoarthritis. There is severe bilateral facet joint osteoarthritis. There is moderate bilateral neural foraminal stenosis. There is mild central ca nal stenosis. C5-C6: There is severe bilateral uncovertebral joint osteoarthritis. There is moderate bilateral face t joint osteoarthritis. There is moderate right and mild left neural foraminal stenosis. There is mil d central canal stenosis. C6-C7: There is moderate left uncovertebral joint osteoarthritis. There is severe bilateral facet luis nt osteoarthritis. There is mild left neural foraminal stenosis. There is no central canal stenosis. C7-T1: There is no uncovertebral joint osteoarthritis. There is ankylosis of left facet joint with mo derate hypertrophy. There is mild left neural foraminal stenosis. There is no central canal stenosis. IMPRESSION: 1. No fracture. 2. Severe cervical spondylosis. Reviewed, dictated and finalized at location E.
--- NOTE | ~2022-12-05 | CT_ITS ---
EXAMINATION: CT brain wo con DATE: 12/05/2022 21:21 INDICATION: Dementia. Fall. TECHNIQUE: Computed tomography (CT) of the head was performed without intravenous contrast. The mA wa s adjusted according to patient size. Iterative reconstruction technique was employed. The dose-lengt h product was 1362.00 mGy-cm. COMPARISON: Head CT 01/31/2021 FINDINGS: There is a small old infarct in right cerebellum. There is an old infarct in right parietal lobe. There are old infarcts in left thalamus and the left basal ganglia. There are scattered areas of low attenuation in the cerebral white matter. There is no intracranial hemorrhage, acute infarctio n, or abnormal intracranial mass lesion. The ventricles are normal in size. There is mucosal thickeni ng in the paranasal sinuses. There is thickening of the marsh of right maxillary sinus, consistent wi th chronic sinusitis. There is a left otomastoid effusion. There are likely changes of left ocular le ns replacement surgery. IMPRESSION: 1. 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 2. Mild nonspecific cerebral white matter disease, which likely represents chronic small vessel ische yu disease. Reviewed, dictated and finalized at location E. IMPRESSION: 1. Old infarcts involving the right cerebellum, right parietal lobe, left thala mus, and left basal ganglia. 2. Mild nonspecific cerebral white matter disease, which likely represents ip litigation associate helga small vessel ischemic disease.
[2022-12-05 20:29] VITALS: BP 94/51; PULSE 96; RESP 26; TEMP 36.4; O2SAT 99
[2022-12-05 22:54] LABS: Basophils Percent Auto 0.4 % (0.2-1.2); Eosinophils Percent Auto 0.1 % (0-4.4); Hematocrit 31.6 % (42.0-52.0); Hemoglobin 8.9 g/dL (14.0-18.0); Immature Granulocyte Absolute 0.01 K/mm3 (0.00-0.031); Immature Granulocyte Percent A 0.1 % (0-0.5); Lymphocytes Absolute Auto 6.75 K/mm3 (0.9-3.2); Lymphocytes Percent Auto 63.5 % (18.3-44.2); Mean Corpuscular HGB Conc 28.2 g/dl (32-36); Mean Corpuscular Hemoglobin 20.7 pg (26-34); Mean Corpuscular Volume 73.7 fl (80-100); Mean Platelet Volume 8.2 fl (7.4-10.4); Monocytes Absolute Auto 0.4 K/mm3 (0.1-0.6); Monocytes Percent Auto 3.3 % (2.6-8.5); Neutrophils Absolute Auto 3.5 K/mm3 (1.3-6.7); Neutrophils Percent Auto 32.6 % (45.5-73.1); Platelet Count Result 264 k/mm3 (150-375); Red Blood Count 4.29 M/mm3 (4.6-6.20); White Blood Count 10.6 K/mm3 (4.5-10.0)
[2022-12-05 23:05] LABS: Alanine Aminotransferase 13 U/L (6-50); Albumin Level 3.2 g/dL (3.5-5.1); Alkaline Phosphatase 100 U/L (38-126); Anion Gap 2 mmol/L (8-16); Aspartate Amino Transferase 17 U/L (17-59); Bilirubin,Total 0.4 mg/dL (0.2-1.3); Blood Urea Nitrogen 19 mg/dL (9-20); Calcium 8.6 mg/dL (8.4-10.2); Carbon Dioxide 27 mmol/L (22-30); Chloride 99 mmol/L (98-107); Estimated CRCL calculation 57 ml/min; Estimated Glomerular Filt Rate > 60; Glucose 112 mg/dL (65-110); Potassium 4.4 mmol/L (3.4-5.0); Sodium 128 mmol/L (137-145)
[2022-12-05 23:19] LABS: Appearance Urine Cloudy (Clear); Bacteria Urine None Seen /hpf; Bilirubin Urine 1+ (Negative); Blood Urine Negative (Negative); Color Urine Dark Yellow (Yellow); Glucose Urine UA Negative (Negative); Ketones Urine Trace mg/dL (Negative); Leukocyte Esterase Ur Trace LEU/UL (Negative); Nitrate Urine Negative (Negative); Non Pathogenic Casts 0-2; Protein Urine Trace mg/dL (Negative); RBC Urine 0-2 /hpf (0-2); Specific Grav Ur 1.021 (1.001-1.035); Squamous Epithelial Cell Urine None seen /hpf (Few); WBC Urine 0-5 /hpf; pH Urine 5.5 (5.0-9.0)
[2022-12-05 23:34] LABS: Add Urine Microscopic? YES
[2022-12-06] MEDS: SODIUM CHLORIDE 0.9% IV 1,000 ML 999 ML IV CONT (00:09)
--- NOTE | 2022-12-06 00:30 | ED.FALL ---
HPI - Fall General Chief Complaint: Fall <Ashwini Martinez APRN - Last Filed: 12/06/22 01:54> Stated Complaint: altered loc, fall <Ashwini Martinez APRN - Last Filed: 12/06/22 01:54> Time Seen by Provider: 12/05/22 20:39 <Ashwini Martinez APRN - Last Filed: 12/06/22 01:54> Source: EMS <Ashwini Martinez APRN - Last Filed: 12/06/22 01:54> Mode of arrival: EMS <Ashwini Martinez APRN - Last Filed: 12/06/22 01:54> History of Present Illness HPI Narrative: 81 year old male presents today from senior living with concerns of him being less aggressive and combative than normal. We were also told that the patient fell. Patient is not answering questions for me at this time. <Ashwini Martinez APRN - Last Filed: 12/06/22 01:54> Related Data Home Medications: Home Medications Medication Instructions Recorded Confirmed metoprolol succinate 50 mg 50 mg PO DAILY 09/07/22 09/07/22 tablet,extended release 24 hr <Ashwini Martinez APRN - Last Filed: 12/06/22 01:54> Allergies/Adverse Reactions: Allergies Allergy/AdvReac Type Severity Reaction Status Date / Time No Known Allergies Allergy Verified 12/05/22 20:45 <Ashwini Martinez APRN - Last Filed: 12/06/22 01:54> Review of Systems Review of Systems: ROS unobtainable: Yes unobtainable due to mental status <Ashwini Martinez APRN - Last Filed: 12/06/22 01:54> [facility] Past Medical History Medical History: Medical History (Updated 12/06/22 @ 01:23 by Ashwini Martinez APRN) Congestive heart failure Hypertension Hyponatremia Iron deficiency anemia Symptomatic anemia UTI (urinary tract infection) <Ashwini Martinez APRN - Last Filed: 12/06/22 01:54> Surgical History Surgical History: Surgical History (Updated 09/11/22 @ 16:04 by Jair Long DO) History of coronary artery bypass graft x4 <Ashwini Mratinez APRN - Last Filed: 12/06/22 01:54> Family History Family History: Family History Sibling Congestive heart failure Sibling Congestive heart failure Father Hypertension Heart disease Mother Hypertension Heart disease <Ashwini Martinez APRN - Last Filed: 12/06/22 01:54> Social History Social History: Social History Smoking packs per day: 0.5 Smoking cigarettes per day: 10.0 Years smoked: 5 Smoking pack-years: 2.50 Smoking status: Never smoker Tobacco type: cigarettes Alcohol intake: unknown Substance use: unknown Substance use type: does not use Lack of Transportation: No Lack of Food: Never True Current Housing: I Have Housing Concerned About Future Housing: No Difficulty Paying Gas/Electric Bills: No Difficulty Paying for Meds: No Currently Unemployed: No Education: Grade School Difficulty w/ Childcare or Family Care: No Spiritual care concerns: No <Ashwini Martinez APRN - Last Filed: 12/06/22 01:54> Exam Narrative: GENERAL: pale, thin, no acute distress, confused HEAD: Normocephalic, atraumatic. NECK: Supple. No adenopathy or masses. no cervical tenderness CHEST: Clear to auscultation. No respiratory distress. No wheezes rales or rhonchi HEART: Regular rate and rhythm. No murmur heard. Normal peripheral pulses. ABDOMEN: Soft, nontender, nondistended, normal active bowel sounds. EXTREMITIES: Normal range of motion. No edema. no sign of injury, no echymosis, or obvious deformity. SKIN: Warm, dry, no rash. NEURO: AOx1 <Ashwini Martinez APRN - Last Filed: 12/06/22 01:54> Course BRICKLAYER SUPERVISOR/PA Physician Supervision I agree with midlevel documentation; I performed the medical decision making component of this evaluation. <Keyla Renteria MD - Last Filed: 12/06/22 03:24> Vital Signs Vital signs: Vital Signs Temperature 97.5 F L 12/05/22 20:29 Pulse Rate 96 12/05/22 20:29 Respiratory Rate 26 H 12/05/22 20:29 Bl
[2022-12-06 01:12] VITALS: BP 109/73; PULSE 84; RESP 22; O2SAT 100
[2022-12-06] MEDS: AZITHROMYCIN 500 MG/NS 250 ML 500 MG/250 ML BAG 250 MG IVPB ×2 (01:45→21:44)
[2022-12-06 03:02] VITALS: BP 108/71; PULSE 91; RESP 18; TEMP 36.4; O2SAT 95
--- NOTE | 2022-12-06 03:04 | ADMGEN ---
This patient, Manpreet Crawley, was admitted to Medical Room 253-01. Patient/family oriented to hospital policies and general routines including ID bracelet, bed and alarms, visiting hours, pain management, procedures, bathroom and other care routines, personal items, smoking policy, room service/diet, and visiting hours. Information on how to activate the Rapid Response Team has been discussed. Patient/Family are encouraged to report perceived risks to care and to ask questions if they do not understand what they are told or what they should do.
[2022-12-06] MEDS: SODIUM CHLORIDE 0.9% IV 1,000 ML 125 ML IV CONT ×3 (03:11→23:50)
[2022-12-06 03:46] VITALS: BMI 17.0
--- NOTE | 2022-12-06 07:38 | PM.IMHP ---
H&P: HPI History of Present Illness Date/Time: 12/06/22 07:38 Chief Complaint: Altered mental status Narrative: 81-year-old male with history of CVAs, recurrent UTIs, iron deficiency anemia is presenting with altered mental status from a nursing facility. Patient was found at the nursing facility to be altered. He was much more somnolent than usual. Staff noted that he is normally aggressive and combative in this behavior was absent. In the ER, chest x-ray was mildly abnormal concerning for pneumonia. Head CT showed multiple old infarcts, nonacute. Compared to the CT from 2020, these infarcts are new from then. Unable to perform review of systems, no further history of will to be taken from patient. All history taken from chart. Review of Systems Review of Systems: ROS unobtainable: Yes unobtainable due to mental status PMFSH Past Medical History Medical History (Updated 12/06/22 @ 07:55 by Paulina Guillen DO) Congestive heart failure CVA (cerebral vascular accident) Hypertension Hyponatremia Iron deficiency anemia Symptomatic anemia UTI (urinary tract infection) Surgical History Surgical History (Updated 09/11/22 @ 16:04 by Jair Long DO) History of coronary artery bypass graft x4 Family History Family History Sibling Congestive heart failure Sibling Congestive heart failure Father Hypertension Heart disease Mother Hypertension Heart disease Social History Social History Smoking packs per day: 0.5 Smoking cigarettes per day: 10.0 Years smoked: 5 Smoking pack-years: 2.50 Smoking status: Unknown if ever smoked Tobacco type: cigarettes Alcohol intake: unknown Substance use: unknown Substance use type: does not use Lack of Transportation: No Lack of Food: Never True Current Housing: I Have Housing Concerned About Future Housing: No Difficulty Paying Gas/Electric Bills: No Difficulty Paying for Meds: No Currently Unemployed: No Education: Grade School Difficulty w/ Childcare or Family Care: No Spiritual care concerns: No Meds Home Medications and Allergies Home Medications Medication Instructions Recorded Confirmed Type aspirin 81 mg tablet,delayed 81 mg PO QAM 1 month #30 tabs 01/15/22 12/06/22 Rx release metoprolol succinate 50 mg 50 mg PO DAILY 09/07/22 12/06/22 History tablet,extended release 24 hr Adult One Daily Multivitamin 1 tab-cap PO QAM 12/06/22 12/06/22 History mirtazapine 7.5 mg tablet 7.5 mg PO QHS 12/06/22 12/06/22 History Allergies Allergy/AdvReac Type Severity Reaction Status Date / Time No Known Allergies Allergy Verified 12/05/22 20:45 Vital Signs Vital Signs - 24 hr 12/05/22 20:29 12/06/22 01:12 12/06/22 03:02 Temperature 97.5 F L 97.5 F L Pulse Rate 96 84 91 Respiratory Rate 26 H 22 H 18 Blood Pressure 94/51 L 109/73 108/71 Pulse Oximetry 99 100 95 Oxygen Delivery Room Air 12/06/22 03:40 Temperature Pulse Rate Respiratory Rate Blood Pressure Pulse Oximetry Oxygen Delivery Room Air Exam Narrative: General: Extremely emaciated, cachectic, frail, chronically ill-appearing male HEENT: Atraumatic, normocephalic, mucous membranes dry CV: Regular rate and rhythm, S1, S2 Lungs: Diminished breath sounds throughout, no wheeze, scattered crackles at bases Abdomen: Soft, nontender, nondistended Extremities: Normal to inspection, extremely atrophic Skin: Extremely dry skin with scattered bruising noted Psych: Unable to assess H&P: Results Labs Labs: Short CBC 12/05/22 Range/Units 22:48 WBC 10.6 H (4.5-10.0) K/mm3 Hgb 8.9 L (14.0-18.0) g/dL Hct 31.6 L (42.0-52.0) % Plt Count 264 (150-375) k/mm3 [facility] 12/05/22 22:48 Sodium 128 L Potassium 4.4 Chloride 99 Carbon Dioxide 27 BUN 19 Creatinine 0.50 L Glucose 112
[2022-12-06 08:19] LABS: Hematocrit 29.7 % (42.0-52.0); Hemoglobin 8.1 g/dL (14.0-18.0); Mean Corpuscular HGB Conc 27.3 g/dl (32-36); Mean Corpuscular Hemoglobin 21.1 pg (26-34); Mean Corpuscular Volume 77.3 fl (80-100); Mean Platelet Volume 9.3 fl (7.4-10.4); Platelet Count Result 252 k/mm3 (150-375); Red Blood Count 3.84 M/mm3 (4.6-6.20); Red Cell Distribution Width 21.8 % (11.5-14.5); White Blood Count 11.4 K/mm3 (4.5-10.0)
[2022-12-06 08:44] LABS: Alanine Aminotransferase 10 U/L (6-50); Albumin Level 2.9 g/dL (3.5-5.1); Alkaline Phosphatase 90 U/L (38-126); Anion Gap 4 mmol/L (8-16); Aspartate Amino Transferase 17 U/L (17-59); Bilirubin,Total 0.4 mg/dL (0.2-1.3); Blood Urea Nitrogen 14 mg/dL (9-20); Calcium 7.7 mg/dL (8.4-10.2); Carbon Dioxide 22 mmol/L (22-30); Chloride 106 mmol/L (98-107); Estimated CRCL calculation 69 ml/min; Estimated Glomerular Filt Rate > 60; Glucose 79 mg/dL (65-110); Potassium 3.9 mmol/L (3.4-5.0); Sodium 132 mmol/L (137-145)
[2022-12-06 08:49] VITALS: PULSE 91
[2022-12-06 08:56] LABS: Band Neutrophils Percent 15 % (0-6); Lymphocytes Absolute Manual 5.47 K/mm3 (1.1-4.5); Monocytes Absolute Manual 0.11 K/mm3 (0.1-0.90); Monocytes Percent Manual 1 % (3-9); Neutrophils Absolute Manual 5.81 K/mm3 (1.3-6.7); Neutrophils Percent Manual 36 % (46-73); Total Cells Counted 100
[2022-12-06 08:57] LABS: Anisocytosis 1+ (NORMAL); Burr Cells 2+ (NORMAL); Ovalocytes 1+ (NORMAL); Platelet Estimate Adequate (Adequate); Smudge Cells FEW
[2022-12-06 08:58] LABS: Hypochromasia 1+ (NORMAL); Schistocytes Rare (NORMAL)
[2022-12-06 08:59] LABS: Acanthocytes 1+ (NORMAL); Microcytosis 1+ (NORMAL)
[2022-12-06 09:06] LABS: Vitamin D 25 Hydroxy 17.6 ng/mL
[2022-12-06 09:48] LABS: Folic Acid 2.5 ng/mL (2.76->20)
[2022-12-06 12:22] VITALS: BMI 17.0
[2022-12-06 14:00] VITALS: BP 100/45; PULSE 71; RESP 16; TEMP 36.4; O2SAT 100
[2022-12-06 20:23] VITALS: BP 101/58; PULSE 86; RESP 18; TEMP 36.1; O2SAT 95
[2022-12-06] MEDS: MIRTAZAPINE 7.5 MG TABLET PO (21:12)
[2022-12-07 03:26] VITALS: BP 111/54; PULSE 68; RESP 18; TEMP 36.2; O2SAT 97
[2022-12-07 05:28] LABS: Alanine Aminotransferase 10 U/L (6-50); Albumin Level 2.5 g/dL (3.5-5.1); Alkaline Phosphatase 79 U/L (38-126); Anion Gap 4 mmol/L (8-16); Aspartate Amino Transferase 15 U/L (17-59); Bilirubin,Total 0.2 mg/dL (0.2-1.3); Blood Urea Nitrogen 12 mg/dL (9-20); Calcium 7.4 mg/dL (8.4-10.2); Carbon Dioxide 24 mmol/L (22-30); Chloride 107 mmol/L (98-107); Estimated CRCL calculation 48 ml/min; Estimated Glomerular Filt Rate > 60; Glucose 81 mg/dL (65-110); Potassium 3.7 mmol/L (3.4-5.0); Sodium 135 mmol/L (137-145)
[2022-12-07 05:29] LABS: Hematocrit 28.5 % (42.0-52.0); Hemoglobin 8.1 g/dL (14.0-18.0); Mean Corpuscular HGB Conc 28.4 g/dl (32-36); Mean Corpuscular Hemoglobin 21.1 pg (26-34); Mean Corpuscular Volume 74.2 fl (80-100); Platelet Count Result 240 k/mm3 (150-375); Red Blood Count 3.84 M/mm3 (4.6-6.20); Red Cell Distribution Width 21.9 % (11.5-14.5); White Blood Count 10.1 K/mm3 (4.5-10.0)
[2022-12-07 07:13] LABS: Band Neutrophils Percent 10 % (0-6); Lymphocytes Absolute Manual 3.13 K/mm3 (1.1-4.5); Monocytes Percent Manual 4 % (3-9); Neutrophils Absolute Manual 6.56 K/mm3 (1.3-6.7); Neutrophils Percent Manual 55 % (46-73); Platelet Estimate Adequate (Adequate); Total Cells Counted 100
[2022-12-07 07:14] LABS: Acanthocytes 1+ (NORMAL); Poikilocytosis 2+ (NORMAL); Schistocytes 1+ (NORMAL); Smudge Cells MANY
[2022-12-07 07:15] LABS: Crenated RBC 1+ (NORMAL); Ovalocytes 1+ (NORMAL)
--- NOTE | 2022-12-07 08:03 | PM.IMPN ---
Progress Note: A&P Assessment and Plan (1) Pneumonia: Code(s): J18.9 - Pneumonia, unspecified organism Status: Acute Assessment and Plan: Rocephin and azithromycin started in the ER 12/05, stable on room air Chest x-ray reviewed, some changes in the left lung base concerning for pneumonia, likely has overlying atelectasis as well (2) Altered mental status: Code(s): R41.82 - Altered mental status, unspecified Status: Acute Assessment and Plan: Likely from possible vascular dementia due to multiple old infarcts superimposed with acute pneumonia (3) History of coronary artery bypass graft: Code(s): Z95.1 - Presence of aortocoronary bypass graft Status: Acute Assessment and Plan: Continue aspirin (4) Congestive heart failure: Code(s): I50.9 - Heart failure, unspecified Status: Acute Assessment and Plan: Appears to be euvolemic at this time (5) Hypertension: Code(s): I10 - Essential (primary) hypertension Status: Acute Assessment and Plan: Blood pressure reviewed 12/07 (6) BPH (benign prostatic hyperplasia): Code(s): N40.0 - Benign prostatic hyperplasia without lower urinary tract symptoms Status: Acute (7) History of CVA (cerebrovascular accident): Code(s): Z86.73 - Personal history of transient ischemic attack (TIA), and cerebral infarction without residual deficits Status: Acute Assessment and Plan: Now with multiple new CVAs noted on CT head that look old, but new from 2020, suspect underlying vascular dementia Consult Neurology, consider CTA head and neck versus carotid ultrasound as well as echo with bubble study, will defer to Neurology for best workup in this situation Monitor telemetry (8) Adult failure to thrive: Code(s): R62.7 - Adult failure to thrive Status: Acute Assessment and Plan: Mirtazapine given in the past for possible appetite stimulation (9) Iron deficiency anemia: Code(s): D50.9 - Iron deficiency anemia, unspecified Status: Acute Assessment and Plan: Hemoglobin stable at this time Plan DVT prophylaxis with SCDs GI prophylaxis not indicated Code status DNR Subjective Date/time seen: 12/07/22 08:03 Interval history: 81-year-old male with history of CVAs, recurrent UTIs iron deficiency anemia and other comorbidities is presenting with altered mental status and currently being treated for possible pneumonia and possible underlying vascular dementia due to multiple chronic CVAs noted on CT head. No overnight events noted. No chest pain or shortness of breath. No nausea, vomiting or diarrhea. No fevers or chills. Review of Systems Review of Systems: 12 point review of systems was assessed and was negative except as noted in the HPI Exam Narrative: General: Extremely emaciated, cachectic, frail, chronically ill-appearing male HEENT: Atraumatic, normocephalic, mucous membranes dry CV: Regular rate and rhythm, S1, S2 Lungs: Diminished breath sounds throughout, no wheeze, scattered crackles at bases Abdomen: Soft, nontender, nondistended Extremities: Normal to inspection, extremely atrophic Skin: Extremely dry skin with scattered bruising noted Psych: Unable to assess Objective Data Vital Signs Vital Signs: Vital Signs - 24 hr 12/06/22 08:49 12/06/22 14:00 12/06/22 20:23 Temperature 97.6 F 96.9 F L Pulse Rate 91 71 86 Respiratory Rate 16 18 Blood Pressure 100/45 L 101/58 L Pulse Oximetry 100 95 Oxygen Delivery 12/06/22 20:00 12/07/22 03:26 Temperature 97.1 F L Pulse Rate 68 Respiratory Rate 18 Blood Pressure 111/54 L Pulse Oximetry 97 Oxygen Delivery Room Air Intake/Output Intake/Output: Intake & Output 12/04/22 12/05/22 12/06/22 12/07/22 23:59 23:59 23:59 23:59 Intake Total 3890 0 Output Total 50 Balance -50 3890 0 Meds/Re
[2022-12-07] MEDS: SODIUM CHLORIDE 0.9% IV 1,000 ML 125 ML IV CONT (08:15)
[2022-12-07 08:22] VITALS: PULSE 68; RESP 18; O2SAT 97
[2022-12-07 08:33] VITALS: PULSE 68
--- NOTE | 2022-12-07 12:24 | PM.DS ---
DS: Admitting Diagnosis Discharge Date 12/07/22 Admitting Diagnosis ams DS: Discharge Diagnosis Discharge Diagnosis (1) Pneumonia: Code(s): J18.9 - Pneumonia, unspecified organism Status: Acute Assessment and Plan: Rocephin and azithromycin started in the ER 12/05, stable on room air Chest x-ray reviewed, some changes in the left lung base concerning for pneumonia, likely has overlying atelectasis as well (2) Altered mental status: Code(s): R41.82 - Altered mental status, unspecified Status: Acute Assessment and Plan: Likely from possible vascular dementia due to multiple old infarcts superimposed with acute pneumonia (3) History of coronary artery bypass graft: Code(s): Z95.1 - Presence of aortocoronary bypass graft Status: Acute Assessment and Plan: Continue aspirin (4) Congestive heart failure: Code(s): I50.9 - Heart failure, unspecified Status: Acute Assessment and Plan: Appears to be euvolemic at this time (5) Hypertension: Code(s): I10 - Essential (primary) hypertension Status: Acute Assessment and Plan: Blood pressure reviewed 12/07 (6) BPH (benign prostatic hyperplasia): Code(s): N40.0 - Benign prostatic hyperplasia without lower urinary tract symptoms Status: Acute (7) History of CVA (cerebrovascular accident): Code(s): Z86.73 - Personal history of transient ischemic attack (TIA), and cerebral infarction without residual deficits Status: Acute Assessment and Plan: Now with multiple new CVAs noted on CT head that look old, but new from 2020, suspect underlying vascular dementia Consult Neurology, consider CTA head and neck versus carotid ultrasound as well as echo with bubble study, will defer to Neurology for best workup in this situation Monitor telemetry Update: neuro is not available for consultation, can f/u outpatient for vascular dementia workup (8) Adult failure to thrive: Code(s): R62.7 - Adult failure to thrive Status: Acute Assessment and Plan: Mirtazapine given in the past for possible appetite stimulation Hospice likely best option for this patient at this time (9) Iron deficiency anemia: Code(s): D50.9 - Iron deficiency anemia, unspecified Status: Acute Assessment and Plan: Hemoglobin stable at this time Plan DVT prophylaxis with SCDs GI prophylaxis not indicated Code status DNR, recommend hospice DS: Summary Hospital Course Hospital Course: 81-year-old male with history of CVAs, UTIs, iron deficiency anemia presenting with altered mental status. He appeared to have a pneumonia and responded antibiotics. All symptoms resolved. His baseline health is quite poor and prognosis is not good. Would recommend hospice at discharge. Please see above and [facility] rec for details. Of note, recent head CT showed multiple old infarcts that were not present on the CT from 2020 suggesting possible underlying vascular dementia. Could consider neurology workup outpatient for further evaluation and symptom management. However, in light of extremely poor prognosis, hospice is likely the better course of action. Time Spent with Patient Time attestation: Total time spent providing and/or coordinating discharge services: Exam Narrative: General: Extremely emaciated, cachectic, frail, chronically ill-appearing male HEENT: Atraumatic, normocephalic, mucous membranes dry CV: Regular rate and rhythm, S1, S2 Lungs: Diminished breath sounds throughout, no wheeze, scattered crackles at bases Abdomen: Soft, nontender, nondistended Extremities: Normal to inspection, extremely atrophic Skin: Extremely dry skin with scattered bruising noted Psych: Unable to assess DS: Data Data Completed and Pending Labs on day of discharge: Labs from last 24 hours 12/07/22 05:06 WBC 10.1 H RBC 3.84 L Hgb 8.1 L
[2022-12-07 13:41] LABS: SARS-CoV-2 RNA PCR Negative (Negative)
[2022-12-07 14:05] VITALS: BP 107/51; PULSE 54; RESP 16; O2SAT 99
== END 2022-12-07 14:40 ==
LOC: ANHED 12-06 01:23 → ANH2MED 12-07 12:29
PROVIDERS: Admitting Provider Student in an Organized Health Care Education/Training Program; Emergency Provider Nurse Practitioner Family; PCP Hospitalist; Visit Provider Student in an Organized Health Care Education/Training Program
DX: J18.9 Pneumonia, unspecified organism (principal); R41.82 Altered mental status, unspecified; E87.1 Hypo-osmolality and hyponatremia; D50.9 Iron deficiency anemia, unspecified; W19.XXXA Unspecified fall, initial encounter; D72.829 Elevated white blood cell count, unspecified; Z20.822 Contact with and (suspected) exposure to COVID-19; R62.7 Adult failure to thrive; I11.0 Hypertensive heart disease with heart failure; N40.0 Benign prostatic hyperplasia without lower urinary tract symptoms; I50.9 Heart failure, unspecified; R90.82 White matter disease, unspecified; M47.812 Spondylosis without myelopathy or radiculopathy, cervical region; I25.10 Atherosclerotic heart disease of native coronary artery without angina pectoris; Z95.1 Presence of aortocoronary bypass graft; Z86.73 Personal history of transient ischemic attack (TIA), and cerebral infarction without residual deficits; Z79.899 Other long term (current) drug therapy; Z82.49 Family history of ischemic heart disease and other diseases of the circulatory system
CPT/HCPCS: 36415; 70450; 71045; 72125; 80053; 81001; 82306; 82607; 82746; 84443; 85025; 87040; 87635; 96361; 96365; 96366; 96367; 99285; A9270; G0378; J0456; J0696; J7030